=== PATIENT | female | born 1955 | race African-American/Black ===

== ENCOUNTER → 2016-09-06 | Outpatient (CLI) | payer OTHER ==
[~2016-09-06] MED LIST: ALDACTONE25 MG PO; CLONIDINE HCL0.1 MG PO; CLONIDINE0.1 PO; COREG12.5 MG PO; COREG25 MG PO; DEMADEX20 MG PO; GLUCERNA1 EACH PO; IMDUR 30 MG TAB30 M1 PO; KLOR-CON 1010 MEQ PO; LISINOPRIL10 MG PO; LISINOPRIL20 MG PO; METOPROLOL SUCC50 MG PO; POTASSIUM CHLO10 MEQ PO; PROTONIX40 M4 PO; SILVADENE20 GM TP; STERILE SALINE126 ML IV; TEARS NATURALE1 EACH OPHTHALMIC; TOPROL XL25 MG PO; TORSEMIDE5 MG PO; TYLENOL325 MG PO; ZESTRIL2.5 MG PO
--- NOTE | ~2016-09-06 | 2DMMODE ---
[facility] [address] [place] [address] 2 D/M-MODE ECHOCARDIOGRAM Name: MARY ELLENERICDAWIT DEVI Room #: REG [facility]#: [id number] Admission: 09/06/16 Attend Phys: Luis Antonio Siegel MD Discharge: Date of : 57 Date of Service: 09/07/16 0757 Report #: [id number] THIS REPORT FOR: //name// APPROVED REPORT Study performed: 09/06/2016 11:26:25 EXAM: Comprehensive 2D, Doppler, and color-flow Echocardiogram Patient Location: Out-Patient Blood Pressure: 148/80 mmHg HR: 88 bpm Other Information Study Quality: Excellent Indications Congestive Heart Failure Hypertension/HDD 2D Dimensions RVDd: 36.16 mm LVEF(%): 51.86 (>50%) IVSd: 15.87 (7-11mm) LVOT Diam: 20.73 (18-24mm) LVDd: 41.59 mm PWd: 15.71 (7-11mm) Ascending Aorta: 26.68 mm LVDs: 30.68 (25-40mm) IVC: 19.00 mm Aortic Root: 27.70 mm Garibay's LVEF: 51.86 % Volumes Left Atrial Volume (Systole) Single Plane 4CH: 67.09 mL Single Plane 2CH: 72.54 mL LA ESV Index: 66.00 mL/m2 Aortic Valve AoV Peak Alireza.: 1.92 m/s AO Peak Gr.: 14.78 mmHg LV Max P.63 mmHg LV Max: 1.19 m/s AI Vmax: 4.61 m/s AI Borden: 3.73 m/s2 AI PHT: 358.18 ms Mitral Valve E/A Ratio: 0.5 [facility] [place] [address] 2 D/M-MODE ECHOCARDIOGRAM Name: ERIC HYDE Room #: [facility]#: [id number] Admission: 09/06/16 Attend Phys: Luis Antonio Siegel MD Discharge: Date of : 57 Date of Service: 09/07/16 0757 Report #: [id number] MV Decel. Time: 402.52 ms MV E Max Alireza.: 0.73 m/s MV A Alireza.: 1.36 m/s MV PHT: 116.73 ms Pulmonary Valve PV Peak Alireza.: 1.02 m/s PV Peak Gr.: 4.18 mmHg DC End Vmax: 1.36 m/s Pulmonary Vein P Vein S: 62.6 m/s P Vein D: 27.1 m/s P Vein A Dur.: 24.9 m/s PVa Duration: 87 Tricuspid Valve TR Peak Alireza.: 2.76 m/s RAP Estimate: 5.00 mmHg TR Peak Gr.: 30.43 mmHg Left Ventricle The left ventricle is normal size. Mild to moderate concentric left ventricular hypertrophy. The overall left ventricular systolic function appears normal. LVEF is 50-55%. Grade I - abnormal relaxation pattern. Right Ventricle The right ventricle is normal size. The right ventricular systolic function is normal. Atria Left atrium is dilated. Right atrium is dilated. Aortic Valve The aortic valve is normal in structure. Aortic valve is calcified. Mild to moderate aortic regurgitation. There is no aortic valvular stenosis. Mitral Valve The mitral valve is normal in structure. Mild to moderate mitral regurgitation. No evidence of mitral valve stenosis. Tricuspid Valve The tricuspid valve is normal in structure. There is mild to moderate tricuspid regurgitation. The right atrial pressure is estimated at 5 mmHg. There is mild pulmonary hypertension. The estimated PAP was [address] [address] 2 D/M-MODE ECHOCARDIOGRAM Name: MARY ELLENERIC MARITO Room #: REG [facility]#: [id number] Admission: 09/06/16 Attend Phys: Luis Antonio Siegel MD Discharge: Date of : 57 Date of Service: 09/07/16 0757 Report #: [id number] Pulmonic Valve The pulmonary valve is normal in structure. Mild pulmonic regurgitation. Great Vessels The aortic root is normal in size. IVC is normal in size and collapses >50% with inspiration. Pericardium There is no pericardial effusion. <Conclusion> The left ventricle is normal size. Mild to moderate concentric left ventricular hypertrophy. The overall left ventricular systolic function appears normal. The right ventricle is normal size. Left atrium is dilated. Right atrium is dilated. Mild to moderate aortic regurgitation. Mild to moderate mitral regurgitation. There is mild to moderate tricuspid regurgitation. The right atrial pressure is estimated at 5 mmHg. There is mild pulmonary hypertension. The estimated PAP was 35 mmHg. <ELECTRONICALLY SIGNED> By: Luis Antonio Siegel MD 09/07/16 0757 075 075 Luis Antonio Siegel MD /INF
== END ==
LOC: CV 07-19 11:00
DX: I50.9 Heart failure, unspecified (principal); I10 Essential (primary) hypertension

== ENCOUNTER 2017-02-08 20:56 | Inpatient (IN) | payer OTHER ==
[~2017-02-08] VITALS: Ht 149.9 cm; Wt 46.7 kg
--- NOTE | ~2017-02-08 | CNG ---
[facility] [place] [address] CYTO-NONGYN REPORT PROCEDURE Name: LINDSAY HYDE Room #: 202-P ADM IN M.R.#: [id number] Admission: 02/08/17 Date of : 57 Discharge: Report #: [id number] Path Case #: [id number] CYTOPATHOLOGY REPORT COLLECTION DATE: 02/13/2017 RECEIVED DATE: 02/13/2017 SUBMITTING PHYS: Dr. Tan Carrillo OTHER PHYS: Dr. James Costello CLINICAL HISTORY: CHF Exacerbation; acute on chronic renal failure SPECIMEN(S) RECEIVED: A.Pleural fluid * * * * * * * * * * * * FINAL DIAGNOSIS: A. Pleural fluid: - No malignant cells identified. Reactive mesothelial cells and inflammation idnetiifed. PATHOLOGIST: Deven Vásquez M.D. REPORT ELECTRONICALLY SIGNED BY: Dveen Vásquez M.D. DATE/TIME: 02/14/2017 11:13 * * * * * * * * * * * * GROSS PATHOLOGY: A. Pleural fluid: The specimen is submitted unfixed, labeled "Sergio Lindsay Enriquez". Received by the Cytology Department is 30 mL of cloudy yellow fluid. One ThinPrep slide and a formalin fixed cell block were prepared. (mm 02.13.2017) UNBUNDLER(S): DINESH Guido(ASCP) INITIAL CPT CODE(S): A; 78658, 20965 Professional services performed by [facility] at [facility] [address], [place] [address] Technical services performed by [facility] at [address] [place] [address]., [address], [place] [address]. [facility] [address] [place] [address], [facility] [address] [place], [place] [address] [place] [address] [place] [address] CYTO-NONGYN REPORT PROCEDURE Name: LINDSAY HYDE Room #: 202-P ADM IN M.R.#: [id number] Admission: 02/08/17 Date of : 57 Discharge: Report #: [id number] Path Case #: [id number] PHONE: [phone] DIRECTOR: Chad Emery M.D. * * * END OF REPORT * * *
--- NOTE | ~2017-02-08 | H ---
[facility] [place] [place] [address] HISTORY AND PHYSICAL Name: ERIC HYDE Room #: 238-P ADM IN M.R.#: [id number] Admission: 02/08/17 Attend Phys: Tan Carrillo MD Discharge: Date of : 57 Report #: [id number] THIS REPORT FOR: //name// CC: Tan Field DATE OF SERVICE: 02/09/2017 ATTENDING: Dr. Fransisco Field. CHIEF COMPLAINT: Shortness of breath. HISTORY OF PRESENT ILLNESS: The patient is a 61-year-old female who presented to the Emergency Room with progressive shortness of breath. She said over the last 3 or 4 days, she has had worsening shortness of breath. She has also noted worsening lower extremity edema and her legs felt heavy, was difficult for her to walk. She also felt that her abdomen was distended. She called out to her buggy man earlier this week and was instructed to double her diuretics, which she reports doing; however, she did not have any significant improvement, came to the ER last night. She did tell me that there was a period recently where she was feeling "depressed" and she said she may not have been following her medication and diet regimen. She has had no fever, chills, productive cough, dysuria or diarrhea recently. She does not feel like she has had any recent infection. PAST MEDICAL HISTORY: Hypertensive heart disease, chronic diastolic congestive heart failure with EF around 50%, aortic regurgitation, pulmonary hypertension, coronary artery disease, chronic kidney disease stage IV. Creatinine in July of this year was 2.6 in the office, chronic back pain, remote history of meningitis in 04/2015. She had a history of peptic ulcer in 2014. She has a history of mitral valve stenosis. PAST SURGICAL HISTORY: As above. FAMILY HISTORY: Noncontributory. SOCIAL HISTORY: She lives at home. Denies current alcohol or tobacco use. ALLERGIES: None. MEDICATIONS: Coreg 12.5 mg twice a day, lisinopril 10 mg, Aldactone 25 mg twice a day, Demadex 40 mg, isosorbide 30 mg, clonidine 0.1 mg t.i.d. REVIEW OF SYSTEMS: She denies headache, visual change, chest pain, diarrhea, [facility] [address] [place] [address] HISTORY AND PHYSICAL Name: ERIC HYDE Room #: 238-[facility] IN M.R.#: [id number] Admission: 02/08/17 Attend Phys: Tan Carrillo MD Discharge: Date of : 57 Report #: [id number] dysuria, myalgias, syncope. She does complain of general weakness, heaviness in the legs. PHYSICAL EXAMINATION: VITAL SIGNS: Temperature 36.1, pulse 90, respirations 19, blood pressure 130/99, O2 sat 90% on 50% ventimask. GENERAL: She is awake and alert. She knows her surroundings. She recognized me from previous admission. HEAD and NECK: Reveal JVD. LUNGS: Diminished in the bases, clear anteriorly. HEART: Regular, no murmur. ABDOMEN: Protuberant, soft, normoactive bowel sounds, maybe a palpable fluid wave. EXTREMITIES: No cyanosis or clubbing. There is a 2-3+ pitting edema in the thighs and the sacral area. NEUROLOGIC: She moves all extremities equally. Speech is fluent. Global strength about 3/5 throughout. LABORATORY DATA: All lab and radiology data reviewed. I spoke with nursing continuously through the night. I also spoke with the ER at the time of presentation. ASSESSMENT: 1. Acute on chronic diastolic congestive heart failure. 2. Acute on chronic renal failure stage IV. 3. Hypertensive heart disease. 4. Valvular heart disease. 5. Metabolic acidosis likely due to renal disease. 6. Anasarca. 7. Abnormal liver function tests, likely passive congestion. 8. Pleural effusion. PLAN: At this point, presentation and symptoms and findings seem more consistent with heart failure related to her underlying hypertensive heart disease and kidney disease. She has had little response initially to Lasix, but additional doses have been ordered. I have asked the critical care service to follow her in ICU initially, also the Pulmonary, also the Cardiology and Nephrology teams will assess her. Resume her Coreg for now for antihypertensive control and a cardiac diet, should consider paracentesis if needed if she does not respond to diuretic therapy. Lovenox for DVT prophylaxis. <ELECTRONICALLY SIGNED> By: Tan Carrillo MD 02/11/17 1215 0832 0916 Tan Carrillo MD /nt
--- NOTE | ~2017-02-08 | D ---
[facility] [place] [address] DISCHARGE SUMMARY Name: ERIC HYDE Room #: 202-P [facility] IN M.R.#: [id number] Admission: 02/08/17 Attend Phys: Tan Carrillo MD Discharge: 02/18/17 Date of : 57 Report #: [id number] THIS REPORT FOR: //name// CC: Tan [facility] Fransisco Emir FINAL DIAGNOSES: 1. Cardiomyopathy 2. Acute on chronic systolic heart failure. 3. Malignant hypertension. 4. Chronic kidney disease stage 4. HOSPITAL COURSE: The patient was admitted with shortness of breath. She was found to be in acute heart failure, systolic dysfunction. She was treated in ICU with diuretics and supportive measures from cardiology and the renal service. Gradually, she made steady improvement. She did have a thoracentesis. By the time of discharge, she had weaned off oxygen and lot of her anasarca resolved. PHYSICAL EXAMINATION: GENERAL: On the day of discharge, she was awake and alert. VITAL SIGNS: Stable vital signs. She was off oxygen. LUNGS: Clear. HEART: Regular. ABDOMEN: Soft. Normoactive bowel sounds. EXTREMITIES: 1+ edema in the back and thigh. PLAN: She will be transferred to a custodial facility with cardiac low sodium diet, activity as tolerated, PT and OT, should be under the care of inhouse physician, follow up lab in 1-2 days, she will follow up with the renal, cardiology and primary care services in 2 weeks, I signed a transfer medication list. <ELECTRONICALLY SIGNED> By: Tan Carrillo MD 02/19/17 0944 0854 1047 Tan Carrillo MD /nt
--- NOTE | ~2017-02-08 | HC ---
[facility] [place] [address] CONSULTATION Name: ERIC HYDE Room #: 238-P ADM IN M.R.#: [id number] Admission: 02/08/17 Attend Phys: Tan Carrillo MD Discharge: Date of : 57 Report #: [id number] THIS REPORT FOR: //name// CC: Tan Moody Emir DATE OF SERVICE: 02/09/2017 REASON FOR CONSULTATION: Progressive renal failure and associated problems. HISTORY OF PRESENT ILLNESS: This is a 61-year-old female who will turn 62 tomorrow. She has been seen previously by our service when she had come in to the hospital with progressive chronic kidney disease. This has been documented in prior consultations and prior hospital visits. She has also been seen in the office by one of my associates, Fahad Carlisle MD. The patient has hypertension. She also has a substantial cardiomyopathy. She was on substantial list of medications at home, but states that she was feeling poorly. She was also having pruritic skin lesions. She states that she saw a math professor who was concerned that these were related to medications. For at least a month, if not longer, she stopped all of her medications that included most of this past month. She says she restarted some of them, but is really sketchy on the details of what she restarted. She has previously documented problems with medication compliance issues. She did say she was having more swelling and more abdominal distention. She had been put back on some of her torsemide which she was taking 40 mg daily, apparently she doubled it at the behest of the Cardiology office and states that her edema improved. As far as her other medications go, I am uncertain that she was taking any of them. HOME MEDICATIONS: Include Coreg 12.5 mg b.i.d., clonidine 0.1 mg t.i.d., isosorbide mononitrate 30 mg daily, lisinopril 10 mg daily, spironolactone 25 mg b.i.d. and torsemide 40 mg daily. ALLERGIES: No known medical allergies. PAST MEDICAL HISTORY: Progressive chronic kidney disease as noted above, longstanding hypertension. She has cardiomyopathy historically. She has had another echo ordered, but is pending. 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 She eventually recovered from that quite remarkably. She has had previous peptic ulcer disease as well as mitral valve stenosis. FAMILY HISTORY: Noncontributory. SOCIAL HISTORY: The patient lives in [facility]. She lives alone. She [facility] [address] [place] [address] CONSULTATION Name: ERIC HYDE Room #: 238-P ADM IN M.R.#: [id number] Admission: 02/08/17 Attend Phys: Tan Carrillo MD Discharge: Date of : 57 Report #: [id number] does all of her own self care. She also does her own meals, but I think those have also been a bit sketchy. REVIEW OF SYSTEMS: She has been very weak. Says she had increased lower extremity edema and then doubled up on her diuretic. Again, I am really uncertain on how much of ____ she is taking. She is unaware what her blood pressure runs at home. She has dyspnea with exertion. She has some nausea, intermittent emesis. Reports no difficulty voiding urine. Unaware of fever, chills or sweats. PHYSICAL EXAMINATION: GENERAL: This is a very small statured female. She is awake and responsive and can answer some of my questions. VITAL SIGNS: On initial presentation, her blood pressure was very high at 174/120, came down. She is now at 115/94, heart rate is 88, respiratory rate 25, oxygen saturation 100% on nasal cannula. HEENT: Shows pupils equal and reactive. Sclerae are nonicteric. Oral mucosa is moist. NECK: Veins are mildly distended. CHEST: Shows decreased breath sounds bilaterally in the bases. HEART: Has a regular rate and rhythm. ABDOMEN: Shows evidence of fluid buildup with ascites. Bowel sounds are present. Abdomen is nontender. I am unable to palpate organomegaly or masses. EXTREMITIES: Show fairly good control of her edema at this time. You can tell by looking at her legs she had been much more edematous recently. LABORATORY DATA: Sodium 140, potassium 5.6, chloride 108, bicarbonate 10, BUN 84, creatinine 2.9, glucose 160, total bilirubin 3.1, calcium 9.0, total protein 8.3, albumin 2.9. Original lactate was 5.2, was down to 3.8. White count 9.3, hemoglobin 12.1, hematocrit 39.4, platelets 238,000. Urinalysis: Specific gravity 1.025, pH of 5.5, 1+ protein, 1+ bilirubin, essentially negative microscopic exam. Initial blood gas; a pH 7.31, pCO2 of 26.8, pO2 of 73.1. Lactate 6.26. Chest x-ray shows evidence of pleural effusion and vascular congestion. CT scan of the abdomen shows lots of ascites, unobstructed kidneys. ASSESSMENT: 1. Chronic kidney disease. I suspect she is at stage 5, although her calculated eGFR is 20 mL per minute, I think it is actually substantially worse than that. She has minimal muscle mass so is creating virtually no creatinine. I think eGFR of 20 is a massive over estimation. I think she is actually uremic. Appetite is down. She has nausea. She has intermittent vomiting. She has been very weak. She has had problems with volume management. We will try [facility] [address] [place] [address] CONSULTATION Name: MARY ELLENERIC DEVI Room #: 238-P ADM IN M.R.#: [id number] Admission: 02/08/17 Attend Phys: Tan Carrillo MD Discharge: Date of : 57 Report #: [id number] to do a little more thorough evaluation here including getting a 24-hour urine for creatinine clearance to see if we can better tell what is going on from a GFR standpoint. I did talk with her a little bit about the potential of doing dialysis treatments. We will discuss more of that going forward depending upon her response. 2. Volume overload with anasarca. She has more in the way of ascites and pleural effusion at this point. I will get her back on some diuretics. Her peripheral volume status has been as bad as it has been in the past. 3. Chronic cardiomyopathy. Echocardiogram to be done. 4. Hypertension, better now on not much meds. I think this further supports that she was not taking her meds before. 5. Hypoglycemia. Again, this is probably related a little bit to her progressive renal disease. 6. Liver function abnormalities mostly related to congestive hepatopathy. RECOMMENDATIONS: 1. Cut back on her IV fluids. 2. I will put her on IV Lasix for further diuresis. 3. Repeat labs. 4. A 24-hour urine for creatinine clearance. 5. We will have further discussion with the patient going forward about the status of her kidneys and the potential of needing dialysis therapy. 6. Level of care and compliance issues are always a problem with this patient. We will keep that in mind going forward. By: 1032 17 Navdeep Polanco MD /nt
--- NOTE | ~2017-02-08 | EKG ---
[address] [place] [address] ELECTROCARDIOGRAM REPORT Name: MARY ELLENERICDAWIT DEVI Room #: 238-P ADM IN M.R.#: [id number] Admission: 02/08/17 Attend Phys: Tan Carrillo MD Discharge: Date of : 57 Report #: [id number] THIS REPORT FOR: //name// [facility] ED Test Date: 2017-02-08 Test Time: 21:01:37 Pat Name: ERIC HYDE Department: Room: 238 Gender: F Chemical Pathologist: ERNESTINE : 1955 Requested By: Meño Deleon Order Number: [id number] MD: James Bautista Measurements Intervals Twain Rate: 120 P: 33 MN: 145 QRS: -14 QRSD: 99 T: 75 QT: 335 QTc: 474 Interpretive Statements Sinus tachycardia Left atrial enlargement LVH with secondary repolarization abnormality Baseline wander in lead(s) V3 Compared to ECG 03/02/2016 06:58:00 Sinus rhythm no longer present Intraventricular conduction delay no longer present Electronically Signed On 02-11-2017 13:57:23 CDT by James Bautista [email or web address] <ELECTRONICALLY SIGNED> By: James Bautista MD 02/11/17 1357 00 00 James Bautista MD /EPI
--- NOTE | ~2017-02-08 | HC ---
[facility] [place] [address] CONSULTATION Name: ERIC HYDE Room #: 238- ADM IN M.R.#: [id number] Admission: 02/08/17 Attend Phys: Tan Carrillo MD Discharge: Date of : 57 Report #: [id number] THIS REPORT FOR: //name// CC: Tan Field TYPE OF REPORT: Pulmonary consultation. PRIMARY CARE PHYSICIAN: Fransisco Costello M.D. REFERRAL PHYSICIAN: Tan Carrillo M.D. REASON FOR REFERRAL: Dyspnea. HISTORY OF PRESENT ILLNESS: The patient is a 61-year-old -[place] female who presents at Emergency Room with dyspnea and generalized weakness. The patient was found to be hypoxic along with renal failure and metabolic acidosis. A pulmonary consultation was requested. The patient has known cardiomyopathy. She is followed longitudinally by Dr. Luis Antonio Siegel. She states that she was in her usual state of health until few days ago she started noticing increasing dyspnea. She was told to increase the diuretic dose. With worsening symptoms, she presents to the Emergency Department. Otherwise, she denies any recent febrile illness, chest pain or productive cough. She denies any nausea, vomiting or diarrhea. Portable chest x-ray on admission revealed cardiomegaly, small bilateral effusion, mild right lower lobe infiltrates. PAST MEDICAL HISTORY: Notable for cardiomyopathy, echocardiogram performed in August of 2016 showed normal LV size, mild to moderate concentric left ventricular hypertrophy, ejection fraction is felt to be normal, dilated both right and left atrium, mild to moderate aortic regurgitation, oidy-co-nqqqvkse mitral regurgitation and pulmonary artery pressure was 35 mmHg. She has chronic diastolic heart failure; hypertensive cardiovascular disease; chronic kidney disease, stage 4, creatinine around 2.6; valvular heart disease as mentioned above; history of peptic ulcer disease and remote history of meningitis. History of positive antinuclear antibody in 2014. PAST SURGICAL HISTORY: Unremarkable. ALLERGIES: None to medications. [facility] [address] [place] [address] CONSULTATION Name: ERIC HYDE Room #: 238-P [facility] IN [facility].#: [id number] Admission: 02/08/17 Attend Phys: Tan Carrillo MD Discharge: Date of : 57 Report #: [id number] HOME MEDICATIONS: Lists are reviewed. This includes Coreg, Zestril, Aldactone, Demadex, Imdur and clonidine. FAMILY HISTORY: Noncontributory. SOCIAL HISTORY: She denies any tobacco or alcohol use. REVIEW OF SYSTEMS: As mentioned above, otherwise 10-point system review negative. PHYSICAL EXAMINATION: GENERAL: She is awake, alert, in mild distress. VITAL SIGNS: Temperature is 97 degrees Fahrenheit, pulse is 90, respiratory rate is 19, blood pressure 118/87 mmHg and saturation is 100%. HEENT: Normocephalic and atraumatic. NECK: Supple, without lymphadenopathy or thyromegaly. CHEST: Breath sounds are fair, decreased in the right base. A few scattered crackles. No wheezes. CARDIOVASCULAR: Normal S1 and S2. Positive gallop. No murmurs. Pulses are 2+/4+ bilaterally. BREASTS: Exam is deferred. ABDOMEN: Soft, mildly distended. No masses felt. GENITOURINARY: Deferred. RECTAL: Deferred. EXTREMITIES: There is no edema, cyanosis or clubbing. RADIOLOGICAL DATA: Chest x-ray as mentioned above. CT abdomen and pelvis revealed dinj-bb-hhxkdumj four-quadrant ascites. LABORATORY DATA: Sodium 140, potassium 5.6, chloride 108, CO2 is 10, bicarbonate is 10, BUN is 84 and creatinine is 2.9. Liver function tests, abnormal with increased SGOT and alkaline phosphatase. WBC is 9300, hemoglobin is 12.1 and platelets are normal. Albumin 2.9. Arterial blood gas revealed pH 7.29, pCO2 of 29 and pO2 is 249 on FiO2 100%. IMPRESSION: 1. Acute hypoxic respiratory failure in this 61-year-old -[place] female with cardiomyopathy, chronic kidney disease. She has mildly severe metabolic acidosis. She is felt to be in acute on chronic diastolic heart failure. Chest x-ray shows questionable right-sided infiltrates, the patient may have possible pneumonia. 2. Cardiomyopathy. Previous echocardiogram had shown severely depressed ejection fraction approximately 15% by transesophageal echocardiography. Recent echocardiogram done by a transthoracic showed ejection fraction being near normal. She does have hypertrophic cardiomyopathy. She has acute on [place] [address] CONSULTATION Name: ERIC HYDE Room #: 238-P [facility] IN M.R.#: [id number] Admission: 02/08/17 Attend Phys: Tan Carrillo MD Discharge: Date of : 57 Report #: [id number] 3. Small right-sided pleural effusion, ascites due to heart failure. The right lower lobe infiltrates, likely represents atelectasis. Pneumonia is felt to be less likely. 4. Acute kidney injury/chronic kidney disease, metabolic acidosis appears to be severe this morning with a bicarbonate of 10. Appears to be an anion gap also. 5. Elevated troponin, deferred to Cardiology. 6. Moderate protein-calorie malnutrition. 7. Elevated liver function enzymes. May be related to hepatic congestion due to heart failure. RECOMMENDATIONS: We will continue to keep saturation 90%. Renal has been consulted along with cardiology regarding management of heart failure and acid-base imbalance. DVT and GI prophylaxis will be addressed. Thank you for this consultation. <ELECTRONICALLY SIGNED> By: Raphael Bonilla MD 02/11/17 1209 [id number] Raphael Bonilla MD /nt
--- NOTE | ~2017-02-08 | HC ---
[facility] [place] [address] CONSULTATION Name: ERIC HYDE Room #: 202-P [facility] IN ..#: [id number] Admission: 02/08/17 Attend Phys: Tan Carrillo MD Discharge: 02/18/17 Date of : 57 Report #: [id number] THIS REPORT FOR: //name// CC: Tan Ramirez [facility] Fransisco Emir DATE OF SERVICE: 02/13/2017 HISTORY OF PRESENT ILLNESS: The patient is a 62-year-old -Y[place]i female admitted with shortness of breath, increased lower extremity edema who was noted to have acute hypoxic respiratory failure, acute on chronic heart failure with an ejection fraction of 20-25%, nonischemic cardiomyopathy, pleural effusion, greater on the right, significant acute renal insufficiency superimposed on chronic kidney disease, ascites. Nephrology indicated that with her advanced heart failure she is a very poor candidate for hemodialysis. We are seeing her in rehabilitation medicine consultation. PAST MEDICAL HISTORY: CHF, chronic kidney disease stage V, past meningitis in 2015, history of peptic ulcer disease. She has had mitral valve stenosis, peptic ulcer 2015. MEDICATIONS: Please see the full medication listing. FAMILY HISTORY: Noncontributory. ALLERGIES: None. SOCIAL HISTORY: Lives in an apartment alone, premorbid cane versus walker ambulator. There is a cousin that can assist. REVIEW OF SYSTEMS: No current complaints of chest pain, shortness of breath or abdominal discomfort. PHYSICAL EXAMINATION: GENERAL: Small statured 62-year-old -Y[place]i female who appears older than stated age. VITAL SIGNS: Last recorded temperature is 98, pulse 87, respirations 17, blood pressure 128/86. She follows basic 1 step commands. HEENT: Facies appeared symmetric. Nasal prong O2 is in place. EXTREMITIES: Functional range of motion of the upper extremities and lower extremities. Strength is probably a 3+/5. She does have some evidence of ascites on examination of her abdomen. She is contact guard for sit to stand and she ambulated 20 feet contact guard with a front-wheeled walker. ASSESSMENT: A 62-year-old -Yemeni female with the following problem [address] [address] CONSULTATION Name: MARY ELLENERIC MARITO Room #: 202-P [facility] IN M.R.#: [id number] Admission: 02/08/17 Attend Phys: Tan Carrillo MD Discharge: 02/18/17 Date of : 57 Report #: [id number] list: 1. Medical complex with generalized debilitation. 2. Acute on chronic combined congestive heart failure. 3. Acute on chronic respiratory failure. 4. Elevated troponin without evidence of non-ST elevation myocardial infarction. 5. Renal insufficiency, stage V. 6. Ascites. 7. Elevated liver enzymes. PLAN: Insurance is being checked regarding rehab therapy options. We will be glad to follow along with you. <ELECTRONICALLY SIGNED> By: Tan Ellison MD 02/20/17 1006 1116 0235 Tan Ellison MD /PATRICIA
--- NOTE | ~2017-02-08 | EKG ---
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 : [id number] Requested By: Arabella Herbert Order Number: [id number] MD: James Bautista Measurements Intervals [place] Rate: 90 P: 41 [place]: 164 QRS: 5 QRSD: 95 T: 118 QT: 457 QTc: 560 Interpretive Statements Sinus rhythm Left atrial enlargement Abnormal R-wave progression, late transition Left ventricular hypertrophy Nonspecific T abnrm, anterolateral leads Electronically Signed On 02-11-2017 13:59:03 CDT by James Bautista [email or web address] <ELECTRONICALLY SIGNED> By: James Bautista MD 02/11/17 1359 1030 1030 James Bautista MD /DARIO
--- NOTE | ~2017-02-08 | 2DMMODE ---
[facility] [address] [place] [address] 2 D/M-MODE ECHOCARDIOGRAM Name: MARY ELLENERIC MARITO Room #: 238-P ADM IN M.R.#: [id number] Admission: 02/08/17 Attend Phys: Stephan Baldwin Discharge: Date of : 57 Date of Service: 02/11/17 0927 Report #: [id number] THIS REPORT FOR: //name// APPROVED REPORT Study performed: 02/11/2017 08:23:20 EXAM: Comprehensive 2D, Doppler, and color-flow Echocardiogram Patient Location: ICU Room #: 238 Status: routine BSA: 1.24 HR: 76 bpm BP: 114/80 mmHg Other Information Study Quality: Excellent Indications Congestive Heart Failure Dyspnea Hypertension/HDD 2D Dimensions RVDd: 40.97 mm LVEF(%): 20.38 (>50%) IVSd: 13.03 (7-11mm) LVOT Diam: 17.69 (18-24mm) LVDd: 49.02 mm PWd: 14.28 (7-11mm) Ascending Ao: 32.89 (22-36mm) LVDs: 44.47 (25-40mm) Aortic Root: 28.99 mm IVC: 22.00 mm Garibay's LVEF: 20.38 % Volumes Left Atrial Volume (Systole) Single Plane 4CH: 135.76 mL Single Plane 2CH: 102.59 mL LA ESV Index: 108.00 mL/m2 Aortic Valve AoV Peak Alireza.: 1.38 m/s AO Peak Gr.: 7.66 mmHg LVOT Max P.68 mmHg LVOT Max V: 0.96 m/s KALLIE Vmax: 1.70 cm2 AI Vmax: 4.16 m/s AI Piute: 2.52 m/s2 AI PHT: 479.79 ms [facility] [place] [address] 2 D/M-MODE ECHOCARDIOGRAM Name: ERIC HYDE Room #: 238-P [facility] IN M.R.#: [id number] Admission: 02/08/17 Attend Phys: Stephan Baldwin Discharge: Date of : 57 Date of Service: 02/11/17 0927 Report #: [id number] Mitral Valve E/A Ratio: 0.7 MV Decel. Time: 224.67 ms MV E Max Alireza.: 0.61 m/s MV A Alireza.: 0.82 m/s MV PHT: 65.15 ms IVRT: 203.00 ms Pulmonary Valve PV Peak Alireza.: 0.85 m/s PV Peak Gr.: 2.86 mmHg MD End Vmax: 1.27 m/s Pulmonary Vein P Vein S: 0.37 m/s P Vein A: 0.20 m/s P Vein D: 0.19 m/s P Vein A Dur.: 120.0 msec P Vein S/D Ratio: 1.95 Tricuspid Valve TR Peak Alireza.: 3.35 m/s TR Peak Gr.: 44.86 mmHg PA Pressure: 60.00 mmHg Left Ventricle The left ventricle is normal size. There is global hypokinesis of the left ventricle. Mild concentric left ventricular hypertrophy. Left ventricular ejection fraction is severely decreased. LVEF is 20-25%. Grade I - abnormal relaxation pattern. Right Ventricle Right ventricle is at the upper limits of normal. Right ventricle is hypokinetic. Atria Left atrium is dilated. Right atrium is dilated. Aortic Valve The aortic valve is normal in structure. Aortic valve is calcified. Mild to moderate aortic regurgitation. There is no aortic valvular stenosis. Mitral Valve The mitral valve is normal in structure. Moderate mitral regurgitation. No evidence of mitral valve stenosis. Tricuspid Valve [facility] [address] [place] [address] 2 D/M-MODE ECHOCARDIOGRAM Name: ERIC HYDE Room #: 238-P ADM IN .R.#: [id number] Admission: 02/08/17 Attend Phys: Stephan Baldwin Discharge: Date of : 57 Date of Service: 02/11/17 0927 Report #: [id number] The tricuspid valve is normal in structure. There is moderate tricuspid regurgitation. The right atrial pressure is estimated at mmHg. There is moderate pulmonary hypertension. Estimated PAP was 60 mmHg. Pulmonic Valve The pulmonary valve is normal in structure. Mild pulmonic regurgitation. Great Vessels The aortic root is normal in size. The inferior vena cava is dilated with no inspiratory collapse. Pericardium Trace pericardial effusion. Moderate left pleural effusion. <Conclusion> The left ventricle is normal size. There is global hypokinesis of the left ventricle. LVEF is 20-25%. Right ventricle is at the upper limits of normal. Right ventricle is hypokinetic. Left atrium is dilated. Right atrium is dilated. The aortic valve is normal in structure. Aortic valve is calcified. Mild to moderate aortic regurgitation. The mitral valve is normal in structure. Moderate mitral regurgitation. The tricuspid valve is normal in structure. There is moderate tricuspid regurgitation. The right atrial pressure is estimated at mmHg. There is moderate pulmonary hypertension. Estimated PAP was 60 mmHg. The pulmonary valve is normal in structure. Mild pulmonic regurgitation. Trace pericardial effusion. Moderate left pleural effusion. <ELECTRONICALLY SIGNED> By: Angus Walsh MD 02/11/17926 6 6 Angus Walsh MD /INF
[2017-02-08 20:58] VITALS: BP 174/120
[2017-02-08 22:10] LABS: HEMATOCRIT 44.2 % (37.0-47.0); HEMOGLOBIN 14.3 gm/dL (12.0-15.0); MCH 33.1 pg (26.0-34.0); MCHC 32.4 g/dL (28.0-37.0); PLATELET COUNT 259 thou/uL (150-400); RBC 4.33 mil/uL (4.20-5.00); RDW 21.2 % (10.5-14.5)
[2017-02-08 22:14] LABS: MANUAL DIFF YES
[2017-02-08 22:19] LABS: CALCIUM 9.4 mg/dL (8.5-10.1); POTASSIUM 5.2 mmol/L (3.5-5.1)
[2017-02-08 22:28] LABS: ALBUMIN 2.9 g/dL (3.4-5.0); TOTAL BILIRUBIN 3.1 mg/dL (<0.1-1.0); TOTAL PROTEIN 8.3 g/dL (6.4-8.2); TROPONIN-I 0.34 ng/mL (<0.04-0.07)
[2017-02-08 23:00] LABS: ABSOLUTE NEUTROPHILS 7.4 thou/uL (1.4-8.2); MACROCYTES 1+; NUCLEATED RBCS 1 /100WBC; POLYCHROMASIA SLIGHT; TOTAL CELL COUNT 100
[2017-02-08 23:29] LABS: URINE BILIRUBIN 1+ (Negative); URINE BLOOD TRACE (Negative); URINE COLOR YELLOW; URINE GLUCOSE-RANDOM* NEGATIVE (Negative); URINE KETONES NEGATIVE (Negative); URINE NITRITE NEGATIVE (Negative); URINE PROTEIN (DIPSTICK) 1+ (Negative); URINE SPECIFIC GRAVITY 1.025 (1.003-1.035); URINE UROBILINOGEN 0.2 E.U./dl (0.2-1.0)
[2017-02-08 23:57] LABS: ICTOTEST (BILI CONFIRMATORY) Positive (Negative)
[2017-02-09] VITALS (38 sets, daily range): BP systolic 96–152; BP diastolic 85–111
[2017-02-09 00:53] LABS: ABG SAMPLE TYPE ARTERIAL; BE(vivo) -11.1 mmol/L (-2 to +3); HCO3 13.4 mmol/L (22.0-26.0); O2(CT) 17.2 mL/dL (15.0-23.0); O2Hb 90.4 % (92.0-98.0); PCO2 26.8 mmHg (35.0-45.0); PO2 73.1 mmHg (80.0-100.0); sO2 93.8 % (92.0-98.0); tCO2 14.2 mmol/L (24.0-30.0)
[2017-02-09 00:54] LABS: LACTATE 6.26 mmol/L (0.5-2.0); pH 7.317 (7.360-7.450)
[2017-02-09 00:55] LABS: STICK SITE L.BRACHIAL
[2017-02-09 01:10] LABS: SQUAMOUS None Seen /LPF (0-3); URINE WBC None Seen /HPF (0-5)
[2017-02-09 01:11] LABS: AMORPHOUS URATES Few /LPF (None Seen); BACTERIA None Seen /HPF (None Seen); CRYSTALS None Seen /LPF (None Seen); HYALINE CASTS 0-3 Few /LPF (None Seen); URINE RBC None Seen /HPF (0-2)
[2017-02-09 04:01] LABS: ABG SAMPLE TYPE ARTERIAL; BE(vivo) -10.8 mmol/L (-2 to +3); HCO3 14.3 mmol/L (22.0-26.0); O2(CT) 19.2 mL/dL (15.0-23.0); O2Hb 98.3 % (92.0-98.0); PCO2 29.8 mmHg (35.0-45.0); PO2 249.5 mmHg (80.0-100.0); sO2 99.5 % (92.0-98.0); tCO2 15.2 mmol/L (24.0-30.0)
[2017-02-09 04:02] LABS: LACTATE 5.65 mmol/L (0.5-2.0); STICK SITE L.BRACHIAL; pH 7.298 (7.360-7.450)
[2017-02-09 05:36] LABS: CREATININE 2.9 mg/dL (0.6-1.0); MAGNESIUM 2.6 mg/dL (1.8-2.4); POTASSIUM 5.6 mmol/L (3.5-5.1)
[2017-02-09 08:41] LABS: HEMATOCRIT 39.4 % (37.0-47.0); MCH 31.7 pg (26.0-34.0); MCHC 30.7 g/dL (28.0-37.0); MCV 103.4 fL (80.0-100.0); PLATELET COUNT 238 thou/uL (150-400); RBC 3.81 mil/uL (4.20-5.00); RDW 21.8 % (10.5-14.5); WBC 9.3 thou/uL (4.0-11.0)
[2017-02-09 08:42] LABS: HEMOGLOBIN 12.1 gm/dL (12.0-15.0); MANUAL DIFF YES
[2017-02-09 10:05] LABS: ABSOLUTE NEUTROPHILS 8.1 thou/uL (1.4-8.2); ANISOCYTOSIS 2+; TOTAL CELL COUNT 100
[2017-02-09 10:06] LABS: MACROCYTES 1+; POLYCHROMASIA OCCASIONAL
[2017-02-10] VITALS (8 sets, daily range): BP systolic 94–119; BP diastolic 74–91
[2017-02-10 05:01] LABS: CALCIUM 7.6 mg/dL (8.5-10.1); CREATININE 3.2 mg/dL (0.6-1.0); TOTAL BILIRUBIN 1.2 mg/dL (<0.1-1.0); TOTAL PROTEIN 6.1 g/dL (6.4-8.2)
[2017-02-10 05:02] LABS: POTASSIUM 4.2 mmol/L (3.5-5.1)
[2017-02-10 06:30] LABS: HEMATOCRIT 39.8 % (37.0-47.0); HEMOGLOBIN 11.9 gm/dL (12.0-15.0); MCV 106.9 fL (80.0-100.0); PLATELET COUNT 189 thou/uL (150-400); RBC 3.73 mil/uL (4.20-5.00); WBC 7.8 thou/uL (4.0-11.0)
[2017-02-10 06:31] LABS: MANUAL DIFF YES
[2017-02-10 10:35] LABS: ABSOLUTE NEUTROPHILS 6.6 thou/uL (1.4-8.2); ANISOCYTOSIS 2+; MACROCYTES 2+; TOTAL CELL COUNT 100
[2017-02-10 21:07] LABS: URINE CREATININE 40.8 mg/dL (Not Estab.)
[2017-02-11 05:54] LABS: ALBUMIN 1.9 g/dL (3.4-5.0); CALCIUM 7.8 mg/dL (8.5-10.1); PHOSPHORUS 5.4 mg/dL (2.5-4.9); POTASSIUM 3.8 mmol/L (3.5-5.1)
[2017-02-11 16:21] VITALS: BP 127/87
[2017-02-11 19:34] VITALS: BP 131/85
[2017-02-12 04:00] VITALS: BP 128/91
[2017-02-12 04:09] LABS: ALBUMIN 1.9 g/dL (3.4-5.0); CALCIUM 7.9 mg/dL (8.5-10.1); CREATININE 2.7 mg/dL (0.6-1.0); PHOSPHORUS 4.6 mg/dL (2.5-4.9); POTASSIUM 3.8 mmol/L (3.5-5.1)
[2017-02-12 07:37] VITALS: BP 137/94
[2017-02-12 11:27] VITALS: BP 122/75
[2017-02-12 15:01] VITALS: BP 103/68
[2017-02-12 17:05] LABS: HEMATOCRIT 37.8 % (37.0-47.0); HEMOGLOBIN 11.4 gm/dL (12.0-15.0); MCH 30.5 pg (26.0-34.0); MCHC 30.1 g/dL (28.0-37.0); RBC 3.73 mil/uL (4.20-5.00); RDW 20.7 % (10.5-14.5); WBC 11.3 thou/uL (4.0-11.0)
[2017-02-12 17:15] LABS: MCV 101.4 fL (80.0-100.0)
[2017-02-12 17:21] LABS: INR 1.2; PROTIME 12.2 Seconds (9.3-11.4)
[2017-02-12 20:30] VITALS: BP 111/77
[2017-02-13 04:00] VITALS: BP 103/66
[2017-02-13 06:17] LABS: ALBUMIN 1.7 g/dL (3.4-5.0); CALCIUM 8.1 mg/dL (8.5-10.1); CREATININE 2.7 mg/dL (0.6-1.0); PHOSPHORUS 3.5 mg/dL (2.5-4.9)
[2017-02-13 12:25] VITALS: BP 112/70
[2017-02-13 14:12] LABS: CLARITY CLOUDY; COLOR YELLOW; MANUAL DIFF YES; TOTAL VOLUME 60 mL
[2017-02-13 14:33] LABS: BF NUCLEATED CELLS 809; BF RBC 562
[2017-02-13 15:11] LABS: BF MACROPHAGE 13; BF NEUTROPHILS 67
[2017-02-13 15:56] VITALS: BP 111/74
[2017-02-13 19:24] VITALS: BP 117/78
[2017-02-13 23:18] VITALS: BP 126/83
[2017-02-14 03:23] VITALS: BP 135/91
[2017-02-14 04:04] LABS: ALBUMIN 1.6 g/dL (3.4-5.0); CREATININE 2.4 mg/dL (0.6-1.0); PHOSPHORUS 2.4 mg/dL (2.5-4.9); POTASSIUM 3.2 mmol/L (3.5-5.1)
[2017-02-14 08:17] VITALS: BP 124/84
[2017-02-14 11:53] VITALS: BP 114/71
[2017-02-14 13:14] LABS: BODY FLUID AMYLASE 32 U/L (()); BODY FLUID GLUCOSE 150 mg/dL (()); BODY FLUID LDH 225 IU/L (()); BODY FLUID PROTEIN 2.6 g/dL (())
[2017-02-14 15:47] VITALS: BP 119/78
[2017-02-14 19:15] VITALS: BP 142/98
[2017-02-15 03:12] VITALS: BP 137/96
[2017-02-15 04:26] LABS: ALBUMIN 1.8 g/dL (3.4-5.0); CREATININE 2.1 mg/dL (0.6-1.0); PHOSPHORUS 2.5 mg/dL (2.5-4.9); POTASSIUM 3.8 mmol/L (3.5-5.1)
[2017-02-15 07:50] VITALS: BP 146/100
[2017-02-15] MEDS ORDERED: IMDUR 30 MG TAB30 M1 PO (10:10)
[2017-02-15] MEDS ORDERED: TORSEMIDE5 MG PO (10:11)
[2017-02-15] MEDS ORDERED: CARVEDILOL25 MG PO (10:11)
[2017-02-15 13:09] LABS: BODY FLUID ALBUMIN 1.1 g/dL (())
[2017-02-15 17:59] VITALS: BP 137/92
[2017-02-15 19:19] VITALS: BP 146/90
[2017-02-16 03:12] VITALS: BP 144/91
[2017-02-16 04:37] LABS: ALBUMIN 1.8 g/dL (3.4-5.0); CALCIUM 8.1 mg/dL (8.5-10.1); CREATININE 2.1 mg/dL (0.6-1.0); PHOSPHORUS 2.8 mg/dL (2.5-4.9)
[2017-02-16 07:40] VITALS: BP 143/98
[2017-02-16 12:35] VITALS: BP 124/81
[2017-02-16 17:05] VITALS: BP 141/92
[2017-02-16 19:14] VITALS: BP 179/109
[2017-02-16 23:24] VITALS: BP 125/77
[2017-02-17 03:35] VITALS: BP 131/89
[2017-02-17 05:11] LABS: ALBUMIN 1.8 g/dL (3.4-5.0); CREATININE 1.9 mg/dL (0.6-1.0); PHOSPHORUS 3.2 mg/dL (2.5-4.9); POTASSIUM 3.8 mmol/L (3.5-5.1)
[2017-02-17 08:00] VITALS: BP 123/85
[2017-02-17 15:23] VITALS: BP 123/77
[2017-02-17 19:16] VITALS: BP 147/100
[2017-02-18 03:28] VITALS: BP 134/84
[2017-02-18 04:50] LABS: ALBUMIN 1.8 g/dL (3.4-5.0); CALCIUM 8.2 mg/dL (8.5-10.1); CREATININE 1.9 mg/dL (0.6-1.0); PHOSPHORUS 3.1 mg/dL (2.5-4.9); POTASSIUM 3.3 mmol/L (3.5-5.1)
[2017-02-18 07:10] VITALS: BP 144/93
[2017-02-18 12:00] VITALS: BP 120/75
== END 2017-02-18 15:25 | DRG 291 ==
LOC: ER 20:56 → EROBS 23:24 → ICU 23:24 → 2N 02-11 16:02
PROVIDERS: Hospitalist; Internal Medicine Geriatric Medicine; Internal Medicine Nephrology; Internal Medicine Pulmonary Disease; Nurse Practitioner Family
DX: I13.2 Hypertensive heart and chronic kidney disease with heart failure and with stage 5 chronic kidney disease, or end stage renal disease (principal); I50.43 Acute on chronic combined systolic (congestive) and diastolic (congestive) heart failure; J96.21 Acute and chronic respiratory failure with hypoxia; N18.5 Chronic kidney disease, stage 5; N17.9 Acute kidney failure, unspecified; E87.2 Acidosis; E44.0 Moderate protein-calorie malnutrition; R18.8 Other ascites; J90 Pleural effusion, not elsewhere classified; J98.11 Atelectasis; I27.2 Other secondary pulmonary hypertension; F32.9 Major depressive disorder, single episode, unspecified; I42.2 Other hypertrophic cardiomyopathy; E16.2 Hypoglycemia, unspecified; E87.5 Hyperkalemia; E83.41 Hypermagnesemia; Z86.61 Personal history of infections of the central nervous system; I25.2 Old myocardial infarction; Z87.11 Personal history of peptic ulcer disease; Z87.440 Personal history of urinary (tract) infections; Z68.20 Body mass index [BMI] 20.0-20.9, adult; Z79.899 Other long term (current) drug therapy
CPT/HCPCS: 10081; 10203

== ENCOUNTER 2017-02-27 02:05 | Inpatient (IN) | payer OTHER ==
[~2017-02-27] VITALS: Ht 149.9 cm; Wt 47.9 kg
[2017-02-27] VITALS (11 sets, daily range): BP systolic 133–182; BP diastolic 86–123
--- NOTE | ~2017-02-27 | H ---
[facility] [place] [address] HISTORY AND PHYSICAL Name: ERIC HYDE Room #: 203-P ADM IN M.R.#: [id number] Admission: 02/27/17 Attend Phys: Tan Carrillo MD Discharge: Date of : 57 Report #: [id number] THIS REPORT FOR: //name// CC: Tan Moody Emir DATE OF SERVICE: 02/27/2017 CHIEF COMPLAINT: Shortness of breath. HISTORY OF PRESENT ILLNESS: The patient is a 62-year-old female transferred back from her retirement facility for evaluation of shortness of breath. She had a recent hospitalization for similar symptoms and was diagnosed with cardiomyopathy, ejection fraction around 20% due to hypertensive heart disease along with chronic kidney disease stage 4. She was diuresed and had a left thoracentesis. She was much improved upon discharge from here. She says at the facility she is not clear whether medication changes taken place, but feels that some of the meals may have had excess salt. She says they have been weighing her, but she is not sure what those readings or results show. I do not have any records from the facility available. PAST MEDICAL HISTORY: Chronic kidney disease stage 4, cardiomyopathy, ejection fraction of 20%, unspecified liver disease. PAST SURGICAL HISTORY: Unknown. FAMILY HISTORY: Noncontributory. SOCIAL HISTORY: She was living with her family. She just went to the retirement facility about 10 days ago. No chronic alcohol or tobacco use. ALLERGIES: None. MEDICATIONS: Imdur 90 mg, Coreg 25 mg b.i.d., Demadex 10 mg b.i.d. and clonidine 0.1 mg t.i.d. REVIEW OF SYSTEMS: She complains of abdominal bloating, some shortness of breath. Otherwise, no headache, chest pain, abdominal pain, nausea, vomiting, dysuria, syncope or fall. OBJECTIVE: VITAL SIGNS: Temperature 36.9, pulse 92, respirations 20, blood pressure 133/87 and O2 sat 100% on 2 liters nasal cannula. GENERAL: She is awake and alert. She remembers me. No distress. HEAD AND NECK: Unremarkable. There is JVD. LUNGS: Diminished in the right base. [facility] [address] [place] [address] HISTORY AND PHYSICAL Name: ERIC HYDE Room #: [facility] IN ..#: [id number] Admission: 02/27/17 Attend Phys: Tan Carrillo MD Discharge: Date of : 57 Report #: [id number] HEART: Regular. No murmur. ABDOMEN: Protuberant, soft. Normoactive bowel sounds. Possible palpable fluid wave. EXTREMITIES: Showed 2+ edema. NEUROLOGIC: Motor strength 3/5 throughout. Lab and x-ray data reviewed. ASSESSMENT: 1. Decompensated acute on chronic systolic heart failure. 2. Cardiomyopathy, ejection fraction 20%. 3. Chronic kidney disease stage 4. 4. Right pleural effusion. PLAN: I will ask for thoracentesis and paracentesis for additional fluid removal. Diuretics have been ordered once she has had her tap. Lovenox for DVT prophylaxis. This will be difficult to manage even as an outpatient due to limited ability. The facility is to manage her sodium and fluid intake. We will do the best we can to try to find a stable oral regimen for her and strict instructions upon discharge. I agree this is a terminal heart situation, and at this time, we will try to stabilize her condition and get her return to her skilled care. <ELECTRONICALLY SIGNED> By: Tan Carrillo MD 02/28/17 1005 1249 1416 Tan Carrillo MD /nt
--- NOTE | ~2017-02-27 | EKG ---
[address] [place] [address] ELECTROCARDIOGRAM REPORT Name: ERIC HYDE Room #: 203-P ADM IN M.R.#: [id number] Admission: 02/27/17 Attend Phys: Tan Carrillo MD Discharge: Date of : 57 Report #: [id number] THIS REPORT FOR: //name// [facility] Test Date: 2017-02-27 Test Time: 02:35:25 Pat Name: ERIC HYDE Department: Room: 203 Gender: F Evidence Technician: : [id number] Requested By: J Luis Carey Order Number: [id number] MD: Peter Solis Measurements Intervals [place] Rate: 117 P: 25 [place]: 155 QRS: 50 QRSD: 95 T: 148 QT: 315 QTc: 440 Interpretive Statements Sinus tachycardia Probable left atrial enlargement LVH with secondary repolarization abnormality Compared to ECG 02/09/2017 10:30:59 No significant change was found Electronically Signed On 02-27-2017 8:06:20 CDT by Peter Solis [email or web address] <ELECTRONICALLY SIGNED> By: Peter Solis MD, [facility] 02/27/17 0806 0235 4 Peter Solis MD, [facility] /EPI
--- NOTE | ~2017-02-27 | CNG ---
[facility] [address] CYTO-NONGYN REPORT PROCEDURE Name: MARY ELLENLINDSAY VALENTEE Room #: 203-P DIS IN M.R.#: [id number] Admission: 02/27/17 Date of : 57 Discharge: 03/01/17 Report #: [id number] Path Case #: [id number] CYTOPATHOLOGY REPORT COLLECTION DATE: 03/01/2017 RECEIVED DATE: 03/04/2017 SUBMITTING PHYS: Dr. Tan Carrillo OTHER PHYS: Dr. Fransisco Costello CLINICAL HISTORY: Heart failure, Right pleural effusion SPECIMEN(S) RECEIVED: A.Pleural fluid * * * * * * * * * * * * FINAL DIAGNOSIS: A. Pleural fluid: - No malignant cells identified. Scattered mesothelial cells and acute and chronic inflammatory cells present. PATHOLOGIST: Nancy Sheehan M.D. REPORT ELECTRONICALLY SIGNED BY: Nancy Sheehan M.D. DATE/TIME: 03/05/2017 13:53 * * * * * * * * * * * * GROSS PATHOLOGY: A. Right pleural fluid: The specimen is submitted unfixed, labeled "Lindsay Hyde". Received by the Cytology Department is 10 mL of cloudy yellow fluid. One ThinPrep slide and a formalin fixed cell block were prepared. (lg10.) STEREOTYPE MOLDER(S): [facility] INITIAL CPT CODE(S): A; 28253, 65554 Professional services performed by [facility] at [facility] [address], [place] [address] Technical services performed by [facility] at [address] [place] [address]., [address], [place] [address]. [facility] [address] [place] [address], [facility] [address] [place] [address] PHONE: [phone] [facility] [address] [place] [address] CYTO-NONGYN REPORT PROCEDURE Name: LINDSAY HYDE Room #: 203-P DIS IN M.R.#: [id number] Admission: 02/27/17 Date of : 57 Discharge: 03/01/17 Report #: [id number] Path Case #: [id number] DIRECTOR: Chad Emery M.D. * * * END OF REPORT * * *
--- NOTE | ~2017-02-27 | HC ---
[facility] [place] [address] CONSULTATION Name: ERIC HYDE Room #: 203-P ADM IN M.R.#: [id number] Admission: 02/27/17 Attend Phys: Tan Carrillo MD Discharge: Date of : 57 Report #: [id number] THIS REPORT FOR: //name// CC: Tan Moody Emir DATE OF SERVICE: 02/27/2017 REASON FOR CONSULTATION: Acute on chronic congestive heart failure. HISTORY OF PRESENT ILLNESS: The patient is a 62-year-old with history of nonischemic cardiomyopathy, ejection fraction of 20-25%; hypertension, chronic renal insufficiency and pleural effusion who was recently in the hospital for recurrent congestive heart failure. Her ejection fraction at the time was noted to be 20-25%. Her kidney function was initially very poor, but improved throughout the hospitalization. She started on standard cardiac medications including carvedilol, hydralazine, Imdur, and diuretics. She was transferred to a skilled facility. Apparently, she was there and was starting to have increased shortness of breath as well as increased swelling and she was transferred back to the hospital. REVIEW OF SYSTEMS: GENERAL: Denies fevers or chills. HEENT: No blurred vision. CARDIOVASCULAR: As above, with no complaints of chest pain. PULMONARY: She is short of breath. No wheezing. Not coughing up anything. GASTROINTESTINAL: She denies any nausea, vomiting, but has a poor appetite. GENITOURINARY: She has no dysuria. MUSCULOSKELETAL: No myalgias or arthralgias. ENDOCRINE: No heat or cold intolerance. NEUROLOGIC: No complaints of headaches or focal weakness. PAST MEDICAL HISTORY: 1. Congestive heart failure, ejection fraction of 20-25%, believed to be nonischemic in nature. 2. Hypertension. 3. Acute on chronic renal insufficiency. 4. Nausea, vomiting. 5. Meningitis. 6. Pleural effusions. 7. Medical noncompliance. SOCIAL HISTORY: Does not smoke. FAMILY HISTORY: Noncontributory. [facility] [address] [place] [address] CONSULTATION Name: ERIC HYDE Room #: [address] [place] [address] IN .R.#: [id number] Admission: 02/27/17 Attend Phys: Tan Carrillo MD Discharge: Date of : 57 Report #: [id number] ALLERGIES: None. CARDIAC MEDICATIONS: At the time of discharge include Coreg, hydralazine, Imdur 90 and diuretics. PHYSICAL EXAMINATION: VITAL SIGNS: Temperature is 36.9, pulse 92, respiration 20, blood pressure 133/87. GENERAL: She is in no acute distress. She is a cachectic-appearing female. HEENT: Oropharynx is clear. Her sclerae are anicteric. NECK: Supple, with no thyromegaly. HEART: Regular rate and rhythm with no murmurs. She does have elevated jugular venous pressure. She does have a positive hepatojugular reflux. LUNGS: Reveal diminished breath sounds on the right. No wheezes noted. ABDOMEN: Soft, nontender, nondistended. EXTREMITIES: There is 1-2+ lower extremity edema. Her pulses are 1+ throughout. NEUROLOGIC: Cranial nerves 2-12 are intact. LABORATORY DATA: White count is 6, hemoglobin 10, platelets 326. Sodium 144, potassium 4.1, chloride 112, bicarbonate 21, BUN 24, creatinine 2.1. Her chest x-ray shows a massive right pleural effusion. Her EKG shows some sinus tachycardia with some LVH and repolarization abnormalities. IMPRESSION: In summary, the patient is a 62-year-old with a history of a nonischemic cardiomyopathy with ejection fraction of 20-25% as well as hypertension, which is poorly controlled, and chronic renal insufficiency. She appears to be in acute on chronic congestive heart failure. I recommended that we resume her home medications and resume with IV diuretics. With regards to her pleural effusion, I have recommended that Pulmonary evaluate her for possible thoracentesis. In terms of her overall status, I think the patient has end-stage cardiomyopathy. I think that she cannot really care for herself at home. She probably needs some sort of mcc care facility and may need to consider hospice care. We will continue to follow. By: [id number] James Bautista MD /nt
[~2017-02-27 02:05] MED LIST changes: +CARVEDILOL25 MG PO
[2017-02-27 02:34] LABS: ABSOLUTE NEUTROPHILS 3.8 thou/uL (1.4-8.2); BASOPHILS 1.2 % (0.0-2.0); HEMATOCRIT 33.4 % (37.0-47.0); LYMPHOCYTES 21.5 % (24.0-44.0); MCH 29.7 pg (26.0-34.0); MCHC 29.9 g/dL (28.0-37.0); MCV 99.4 fL (80.0-100.0); MONOCYTES 10.3 % (1.0-8.0); PLATELET COUNT 326 thou/uL (150-400); RBC 3.36 mil/uL (4.20-5.00); RDW 20.2 % (10.5-14.5); WBC 6.1 thou/uL (4.0-11.0)
[2017-02-27 02:37] LABS: MANUAL DIFF NO
[2017-02-27 02:50] LABS: CALCIUM 8.3 mg/dL (8.5-10.1); CREATININE 2.1 mg/dL (0.6-1.0); POTASSIUM 4.1 mmol/L (3.5-5.1)
[2017-02-27 02:54] LABS: TROPONIN-I 0.07 ng/mL (<0.04-0.07)
[2017-02-27 13:16] LABS: HEMATOCRIT 31.7 % (37.0-47.0); HEMOGLOBIN 9.8 gm/dL (12.0-15.0); MCH 30.3 pg (26.0-34.0); MCHC 30.8 g/dL (28.0-37.0); MCV 98.4 fL (80.0-100.0); RBC 3.22 mil/uL (4.20-5.00); RDW 19.8 % (10.5-14.5); WBC 5.7 thou/uL (4.0-11.0)
[2017-02-27 13:33] LABS: CALCIUM 8.4 mg/dL (8.5-10.1); CREATININE 1.9 mg/dL (0.6-1.0); POTASSIUM 4.2 mmol/L (3.5-5.1)
[2017-02-27 13:34] LABS: INR 1.1; PROTIME 10.8 Seconds (9.3-11.4)
[2017-02-28 03:08] VITALS: BP 140/89
[2017-02-28 03:16] LABS: HEMATOCRIT 31.3 % (37.0-47.0); HEMOGLOBIN 9.8 gm/dL (12.0-15.0); MCH 30.5 pg (26.0-34.0); MCHC 31.3 g/dL (28.0-37.0); MCV 97.5 fL (80.0-100.0); RBC 3.21 mil/uL (4.20-5.00); RDW 19.9 % (10.5-14.5); WBC 4.9 thou/uL (4.0-11.0)
[2017-02-28 03:38] LABS: CALCIUM 8.5 mg/dL (8.5-10.1); POTASSIUM 3.6 mmol/L (3.5-5.1)
[2017-02-28 07:01] VITALS: BP 138/96
[2017-02-28 11:43] VITALS: BP 129/84
[2017-02-28 13:09] LABS: BF NUCLEATED CELLS 195; BF RBC 1911
[2017-02-28 13:11] LABS: CLARITY CLOUDY; COLOR YELLOW; TOTAL VOLUME 55 ML mL
[2017-02-28 13:26] LABS: MANUAL DIFF YES
[2017-02-28 14:41] LABS: BF NEUTROPHILS 18
[2017-02-28 14:42] LABS: BF COMMENTS 5 MESOTHELIAL CELLS; BF MACROPHAGE 30
[2017-02-28 15:16] VITALS: BP 137/94
[2017-02-28 19:37] VITALS: BP 132/80
[2017-03-01 03:58] VITALS: BP 146/95
[2017-03-01 06:10] LABS: BODY FLUID ALBUMIN 1.7 g/dL (()); BODY FLUID AMYLASE 87 U/L (()); BODY FLUID GLUCOSE 118 mg/dL (()); BODY FLUID LDH 179 IU/L (()); BODY FLUID PROTEIN 3.9 g/dL (())
[2017-03-01 08:00] VITALS: BP 155/102
[2017-03-01] MEDS ORDERED: ACETAMINOPHEN325 M1 PO (09:50)
[2017-03-01 12:00] VITALS: BP 137/87
[2017-03-01 16:51] LABS: BF NUCLEATED CELLS 367; BF RBC 1402
[2017-03-01 16:53] LABS: CLARITY HAZY; COLOR YELLOW; TOTAL VOLUME 60 mL
[2017-03-01 17:41] LABS: MANUAL DIFF YES
[2017-03-01 17:42] LABS: BF MACROPHAGE 46; BF NEUTROPHILS 20
[2017-03-03 05:35] LABS: BODY FLUID ALBUMIN 1.6 g/dL (()); BODY FLUID AMYLASE 71 U/L (()); BODY FLUID GLUCOSE 98 mg/dL (()); BODY FLUID LDH 183 IU/L (()); BODY FLUID PROTEIN 3.8 g/dL (())
== END 2017-03-01 17:27 | DRG 291 ==
LOC: ER 02:05 → EROBS 05:18 → 2N 05:18
PROVIDERS: Emergency Medicine; Internal Medicine Geriatric Medicine; Internal Medicine Pulmonary Disease
PROC: 0W993ZX Drainage of Right Pleural Cavity, Percutaneous Approach, Diagnostic (ICD-10-PCS; principal; 2017-03-01)
PROC: BB4BZZZ Ultrasonography of Pleura (ICD-10-PCS; principal; 2017-03-01)
DX: I13.0 Hypertensive heart and chronic kidney disease with heart failure and stage 1 through stage 4 chronic kidney disease, or unspecified chronic kidney disease (principal); J96.01 Acute respiratory failure with hypoxia; I50.43 Acute on chronic combined systolic (congestive) and diastolic (congestive) heart failure; E43 Unspecified severe protein-calorie malnutrition; J90 Pleural effusion, not elsewhere classified; N18.4 Chronic kidney disease, stage 4 (severe); J98.11 Atelectasis; N17.9 Acute kidney failure, unspecified; I42.9 Cardiomyopathy, unspecified; Z68.21 Body mass index [BMI] 21.0-21.9, adult; Z91.14 Patient's other noncompliance with medication regimen
CPT/HCPCS: 10081

== ENCOUNTER 2017-07-29 10:04 | Outpatient (CLI) | payer OTHER ==
[~2017-07-29] VITALS: Ht 149.9 cm; Wt 44.5 kg
--- NOTE | ~2017-07-29 | EKG ---
[facility] [place] [address] ELECTROCARDIOGRAM REPORT Name: MARY ELLENERIC DEVI [id number] Admission: 07/29/17 Attend Phys: Luis Antonio Siegel MD Discharge: 07/29/17 Date of : 57 Report #: [id number] THIS REPORT FOR: //name// [facility] ED Test Date: 2017-07-29 Test Time: 10:47:58 Pat Name: ERIC HYDE Department: Room: Gender: F Personal Care Attendant: Luís BOWIE : 1955 Requested By: Arabella Herbert Order Number: [id number] MD: Peter Solis Measurements Intervals [place] Rate: 75 P: 59 CA: 177 QRS: -5 QRSD: 101 T: 117 QT: 421 QTc: 471 Interpretive Statements Sinus rhythm Probable left atrial enlargement LVH with secondary repolarization abnormality Compared to ECG 05/02/2017 14:52:55 No significant change was found Electronically Signed On 07-30-2017 7:47:47 GAMEPLAY PROGRAMMER by Peter Solis [email or web address] <ELECTRONICALLY SIGNED> By: Peter Solis MD, [facility] 07/30/17 0747 1047 1047 Peter Solis MD, [facility] /EPI
--- NOTE | ~2017-07-29 | 2DMMODE ---
[facility] [address] [place] [address] 2 D/M-MODE ECHOCARDIOGRAM Name: ERIC HYDE Room #: DEP [facility]#: [id number] Admission: 07/29/17 Attend Phys: Luis Antonio Siegel MD Discharge: 07/29/17 Date of : 57 Date of Service: 07/29/17 1256 Report #: [id number] THIS REPORT FOR: //name// APPROVED REPORT Study performed: 07/29/2017 11:55:57 EXAM: Comprehensive 2D, Doppler, and color-flow Echocardiogram Patient Location: Echo lab Status: routine BSA: 1.25 HR: 72 bpm BP: 159/80 mmHg Other Information Study Quality: Good Indications CAD 2D Dimensions RVDd: 34.75 mm LVEF(%): 62.08 (>50%) IVSd: 12.90 (7-11mm) LVOT Diam: 19.65 (18-24mm) LVDd: 41.44 mm PWd: 12.95 (7-11mm) Ascending Ao: 33.58 (22-36mm) LVDs: 27.74 (25-40mm) Aortic Root: 28.58 mm IVC: 15.00 mm Garibay's LVEF: 62.08 % Volumes Left Atrial Volume (Systole) Single Plane 4CH: 37.01 mL Single Plane 2CH: 56.40 mL LA ESV Index: 43.00 mL/m2 Aortic Valve AoV Peak Alireza.: 1.65 m/s AO Peak Gr.: 10.91 mmHg AI Vmax: 4.40 m/s AI [place]: 2.93 m/s2 AI PHT: 436.55 ms Mitral Valve E/A Ratio: 0.6 MV Decel. Time: 285.81 ms [facility] [place] [address] 2 D/M-MODE ECHOCARDIOGRAM Name: MARY ELLENERICDAWIT DEVI [facility] [id number] Admission: 07/29/17 Attend Phys: Luis Antonio Siegel MD Discharge: 07/29/17 Date of : 57 Date of Service: 07/29/17 1256 Report #: [id number] E Max Alireza.: 0.71 m/s MV A Alireza.: 1.23 m/s MV PHT: 82.89 ms IVRT: 138.41 ms Pulmonary Valve PV Peak Alireza.: 0.88 m/s PV Peak Gr.: 3.12 mmHg Pulmonary Vein P Vein S: 0.66 m/s P Vein A: 0.34 m/s P Vein D: 0.27 m/s P Vein S/D Ratio: 2.44 Tricuspid Valve TR Peak Alireza.: 2.87 m/s RAP Estimate: 5.00 mmHg TR Peak Gr.: 32.96 mmHg PA Pressure: 38.00 mmHg Left Ventricle The left ventricle is normal size. Mild concentric left ventricular hypertrophy. Left ventricular systolic function is mild to moderately decreased. LVEF is 40-45%. Mild diastolic dysfunction is present (impaired relaxation pattern). Right Ventricle The right ventricle is normal size. Right ventricle is borderline normal. Atria Left atrium is moderately dilated. Right atrium is at the upper limits of normal. Aortic Valve Aortic valve is calcified. Mild to moderate aortic regurgitation. There is no aortic valvular stenosis. Mitral Valve Mild mitral annular calcification. Mitral valve leaflets are mildly thickened. Mild mitral regurgitation. No evidence of mitral valve stenosis. Tricuspid Valve The tricuspid valve is normal in structure. Mild tricuspid regurgitation. PAP is estimated at 38 mmHg. Pulmonic Valve [facility] [address] [place] [address] 2 D/M-MODE ECHOCARDIOGRAM Name: MARY ELLENERICDAWIT DEVI [facility] [id number] Admission: 07/29/17 Attend Phys: Luis Antonio Siegel MD Discharge: 07/29/17 Date of : 57 Date of Service: 07/29/17 1256 Report #: [id number] The pulmonary valve is normal in structure. Mild pulmonic regurgitation. Great Vessels The aortic root is normal in size. IVC is normal in size and collapses >50% with inspiration. Pericardium There is no pericardial effusion. <Conclusion> The left ventricle is normal size. Mild concentric left ventricular hypertrophy. Left ventricular systolic function is mild to moderately decreased. Mild diastolic dysfunction is present (impaired relaxation pattern). The right ventricle is normal size. Left atrium is moderately dilated. Mild to moderate aortic regurgitation. Mild mitral annular calcification. Mitral valve leaflets are mildly thickened. Mild mitral regurgitation. Mild tricuspid regurgitation. PAP is estimated at 38 mmHg. There is no pericardial effusion. <ELECTRONICALLY SIGNED> By: Luis Antonio Siegel MD 07/29/17 1256 1256 1256 Luis Antonio Siegel MD /INF
[~2017-07-29 10:04] MED LIST changes: +ACETAMINOPHEN325 M1 PO; +ENTRESTO 49 MG1 EACH PO
== END 2017-07-29 11:44 ==
LOC: ER 10:04 → CV 10:04 → EDSTATUS 10:38 → CV 11:44 → ER 11:44 → EDSTATUS 11:51 → CV 12:07
DX: I08.3 Combined rheumatic disorders of mitral, aortic and tricuspid valves (principal); I42.9 Cardiomyopathy, unspecified; I25.10 Atherosclerotic heart disease of native coronary artery without angina pectoris

== ENCOUNTER → 2017-12-19 | Outpatient (CLI) | payer OTHER | LOC: NUC 06:24 | DX: R07.9 Chest pain, unspecified (principal); R06.00 Dyspnea, unspecified; R22.1 Localized swelling, mass and lump, neck; I10 Essential (primary) hypertension; Z87.891 Personal history of nicotine dependence ==

== ENCOUNTER 2018-02-23 15:37 | Inpatient (IN) | payer OTHER ==
[~2018-02-23] VITALS: Ht 152.4 cm; Wt 55.2 kg
--- NOTE | ~2018-02-23 | HC ---
[facility] [place] [address] CONSULTATION Name: ERIC HYDE Room #: 358-[facility] IN M.R.#: [id number] Admission: 02/23/18 Attend Phys: Fransisco Field MD Discharge: 03/07/18 Date of : 57 Report #: [id number] THIS REPORT FOR: //name// CC: Fahad Field ELECTROPHYSIOLOGY CONSULTATION REASON FOR CONSULTATION: Cardiac arrest. HISTORY OF PRESENT ILLNESS: The patient is a 63-year-old female with history of a nonischemic cardiomyopathy, hypertension, hyperlipidemia and chronic renal insufficiency, who had a non-syncopal fall at home due to profound weakness and was brought in and found to be in acute renal failure, had a slightly elevated troponin of 0.26. on 02/26/2018, at around 03:00 in the morning, she was having worsening respiratory distress and then became unresponsive and was found to be pulseless. CPR was initiated and she eventually regained a pulse. There was never any documented ventricular arrhythmia and she never required a shock by the defibrillator. She was intubated and was in the ICU and she has been recently extubated. Speaking with her, she denies any chest pain, other than some muscle pains in the chest from probably chest compressions. She denies any shortness of breath. No PND or orthopnea. REVIEW OF SYSTEMS: GENERAL: No fevers or chills. HEENT: No blurred vision. CARDIOVASCULAR: As above. PULMONARY: She does have a cough, somewhat productive. GASTROINTESTINAL: She denies any nausea or vomiting. GENITOURINARY: She denies any dysuria. MUSCULOSKELETAL: She has the chest pain when she takes a deep breath. PAST MEDICAL HISTORY: 1. Nonischemic cardiomyopathy with an echo at this hospitalization showing EF of 25%. 2. Hypertension. 3. Chronic renal insufficiency. SOCIAL HISTORY: She does not smoke. FAMILY HISTORY: Noncontributory. ALLERGIES: None. HOME MEDICATIONS: Include Coreg, Entresto, torsemide and Imdur. PHYSICAL EXAMINATION: [facility] [address] [place] [address] CONSULTATION Name: MARY ELLENERIC DEVI Room #: 358-P [facility] IN M.R.#: [id number] Admission: 02/23/18 Attend Phys: Fransisco Field MD Discharge: 03/07/18 Date of : 57 Report #: [id number] VITAL SIGNS: Temperature is 35.8, pulse 79, respiratory rate 19, blood pressure 120/76 and sats 99%. GENERAL: She is in no acute distress. HEENT: Oropharynx is clear. NECK: Supple. No thyromegaly. HEART: Regular rate and rhythm, with no murmurs, rubs or gallops. She does not have elevated jugular venous pressure. LUNGS: Clear to auscultation bilaterally. ABDOMEN: Soft, nontender and nondistended, with no hepatosplenomegaly. EXTREMITIES: There is no clubbing, cyanosis or edema. NEUROLOGIC: Cranial nerves 2-12 are intact. Telemetry shows no ventricular arrhythmias. She is in sinus rhythm. DIAGNOSTIC DATA: Her recent EKG shows normal sinus rhythm, normal intervals and no ischemic changes with a normal QT. Her white count is 7.1, hemoglobin 11 and platelets 115,000. Chemistries: Sodium 147, potassium 3.5, BUN 68 and creatinine 2.5. Her recent echo shows EF of 25%. Chest x-ray shows no acute process. ASSESSMENT AND PLAN: 1. Cardiac arrest, likely due to pulseless electrical activity. 2. Nonischemic cardiomyopathy. 3. Chronic renal insufficiency. SUMMARY: In summary, the patient is a 63-year-old who had likely a respiratory arrest with PEA. There was never any documented ventricular arrhythmias. As such, I do not think that she warrants ICD implantation. I recommend optimizing her medical management for cardiomyopathy and we will have general Cardiology continue to follow. I will sign off. <ELECTRONICALLY SIGNED> By: James Bautista MD 03/17/18 1450 1331 0155 James Bautista MD /nt
--- NOTE | ~2018-02-23 | HC ---
[facility] [place] [address] CONSULTATION Name: ERIC HYDE Room #: 355-P ADM IN M.R.#: [id number] Admission: 02/23/18 Attend Phys: Fransisco Field MD Discharge: Date of : 57 Report #: [id number] THIS REPORT FOR: //name// CC: Fahad Field DATE OF SERVICE: 02/24/2018 REASON FOR CONSULTATION: Acute on chronic kidney disease. HISTORY OF PRESENT ILLNESS: The patient is well known to our service, longstanding hypertension, chronic kidney disease and a component of cardiorenal syndrome with depressed left ventricular ejection fraction of 10-20%. She apparently developed some hives, went to a radiation control worker, got some steroids, got weak, began retaining excessive fluid, became progressively weak and is now brought to the hospital. PAST MEDICAL HISTORY: She has the chronic kidney disease with baseline creatinine of about 2, the low ejection fraction, longstanding hypertension. HOME MEDICATIONS: Include carvedilol 12.5 mg b.i.d., torsemide 10 mg daily, baby aspirin, some statin for hyperlipidemia for which she is not clear of the exact medication. PAST SURGICAL HISTORY: Negative. SOCIAL HISTORY: Remote smoker. 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 FAMILY HISTORY: Her mother had heart disease and kidney disease. Father had lung disease, was a heavy smoker. No children. Does not know much about her brothers and sisters. REVIEW OF SYSTEMS: GENERAL: She has become progressively weak with some swelling in her legs. EYES: Her vision has been okay. ENT: Hearing okay, swallows okay. Denies mouth sores. ENDOCRINE: No diabetes or thyroid disease. RESPIRATORY: Does get somewhat easily short-winded. CARDIAC: No chest pain, angina, palpitations or arrhythmias. GASTROINTESTINAL: Appetite has been poor. No bloody stools. GENITOURINARY: No dysuria. Urine has fallen off a bit. NEUROLOGIC: Generalized weakness, no neuropathy. PSYCHIATRIC: Has been a little bit down of late. [facility] [address] [place] [address] CONSULTATION Name: ERIC HYDE Room #: 355-P [facility] IN M.R.#: [id number] Admission: 02/23/18 Attend Phys: Fransisco Field MD Discharge: Date of : 57 Report #: [id number] PHYSICAL EXAMINATION: GENERAL: This is a chronically ill-appearing patient, looking older than her stated age. SKIN: She has got scaly thickened skin over the lower extremities. SKELETAL: Well-developed, well-nourished. HEENT: Extraocular movements are full. Vision intact. Hearing intact. Mucous membranes moist. NECK: The neck veins are distended up to the angle of the jaw. There is no lymphadenopathy or thyromegaly. CHEST: Shows scanty crackles at the bases. HEART: Distant, but regular. ABDOMEN: Slightly distended. EXTREMITIES: Show trace generalized brawny edema with thickened skin. LABORATORY DATA: Sodium 140, potassium 4.5, chloride 110, bicarbonate 19, BUN 68, creatinine 3. ASSESSMENT AND PLAN: 1. Acute and chronic kidney disease, mostly cardiorenal, longstanding hypertension with some degree of hypertensive nephrosclerosis. Previous urinalysis has shown some proteinuria with protein creatinine ratios greater than 2 suggesting possible underlying renal disease and/or just bad hypertensive nephrosclerosis. I do not believe that she has had a kidney biopsy. At this point, symptomatic therapy is indicated. She has been given some IV fluids. Creatinine has improved a bit. She is on a low salt diet, which is certainly appropriate. Further treatment will indicate that she has been given an increased dose of carvedilol and torsemide. We will see the effects of that. 2. Hypertensive nephrosclerosis with longstanding hypertension. 3. Severe cardiomyopathy. Previous Cardiology notes are reviewed. I do not see a heart catheterization study, but apparently she was felt to have hypertensive heart disease as best I can tell from the previous notes. <ELECTRONICALLY SIGNED> By: Adam Cesar MD 02/25/18 1055 1014 1819 Adam Cesar MD /nt
--- NOTE | ~2018-02-23 | EKG ---
[place] [address] [address] [place] [address] ELECTROCARDIOGRAM REPORT Name: ERIC HYDE [facility] [id number] Admission: 02/23/18 Attend Phys: Discharge: Date of : 57 Report #: [id number] THIS REPORT FOR: //name// [facility] ED Test Date: 2018-02-23 Test Time: 16:00:43 Pat Name: ERIC HYDE Department: Room: Gender: F Photographic Spotter: : 1955 Requested By: Amanda Wang Order Number: [id number] MD: James Bautista Measurements Intervals [place] Rate: 99 P: 33 ND: 156 QRS: 24 QRSD: 100 T: 61 QT: 419 QTc: 538 Interpretive Statements Sinus rhythm Left atrial enlargement Borderline repolarization abnormality Compared to ECG 07/29/2017 10:47:58 Left ventricular hypertrophy no longer present Electronically Signed On 02-23-2018 17:29:07 CDT by James Bautista [email or web address] <ELECTRONICALLY SIGNED> By: James Bautista MD 02/23/18 1729 1600 99 James Bautista MD /DARIO
--- NOTE | ~2018-02-23 | 2DMMODE ---
[facility] [place] [address] 2 D/M-MODE ECHOCARDIOGRAM Name: ERIC HYDE Room #: 246-P ADM IN M.R.#: [id number] Admission: 02/23/18 Attend Phys: Stephan Torres Discharge: Date of : 57 Date of Service: 02/26/18 1209 Report #: [id number] THIS REPORT FOR: //name// APPROVED REPORT Study performed: 02/26/2018 11:01:50 EXAM: Comprehensive 2D, Doppler, and color-flow Echocardiogram Patient Location: ICU Status: routine BSA: 1.52 HR: 79 bpm BP: 108/78 mmHg Other Information Study Quality: Good Indications Congestive Heart Failure CAD Cardiomyopathy 2D Dimensions RVDd: 51.82 mm IVSd: 13.58 (7-11mm) LVOT Diam: 18.89 (18-24mm) LVDd: 45.80 mm PWd: 14.08 (7-11mm) Ascending Ao: 35.91 (22-36mm) LVDs: 40.62 (25-40mm) Aortic Root: 28.42 mm IVC: 22.00 mm Volumes Left Atrial Volume (Systole) Single Plane 4CH: 83.06 mL Single Plane 2CH: 92.29 mL LA ESV Index: 64.00 mL/m2 Aortic Valve AoV Peak Alireza.: 1.14 m/s AO Peak Gr.: 5.18 mmHg LVOT Max P.57 mmHg LVOT Max V: 0.94 m/s KALLIE Vmax: 2.33 cm2 AI Vmax: 4.70 m/s AI [place]: 2.65 m/s2 AI PHT: 513.99 ms [facility] [place] [address] [place] [address] 2 D/M-MODE ECHOCARDIOGRAM Name: ERIC HYDE Room #: 246- ADM IN ..#: [id number] Admission: 02/23/18 Attend Phys: Stephan Torres Discharge: Date of : 57 Date of Service: 02/26/18 1209 Report #: [id number] Mitral Valve E/A Ratio: 0.6 MV Decel. Time: 253.68 ms MV E Max Alireza.: 0.42 m/s MV A Alireza.: 0.75 m/s MV PHT: 73.57 ms IVRT: 173.01 ms Pulmonary Valve PV Peak Alireza.: 0.74 m/s PV Peak Gr.: 2.18 mmHg Tricuspid Valve TR Peak Alireza.: 2.95 m/s TR Peak Gr.: 34.74 mmHg PA Pressure: 50.00 mmHg Left Ventricle The left ventricle is normal size. There is global hypokinesis of the left ventricle. Mild to moderate concentric left ventricular hypertrophy. Left ventricular ejection fraction is severely decreased. LVEF is 25%. This study is not technically sufficient to allow evaluation of the LV diastolic function. Right Ventricle Right ventricle is dilated. Right ventricle is hypokinetic. Atria Left atrium is dilated. Right atrium is dilated. Aortic Valve The aortic valve is normal in structure. The Aortic valve is sclerotic. Mild aortic regurgitation. There is no aortic valvular stenosis. Mitral Valve The mitral valve is normal in structure. There is mitral annular calcification. Moderate mitral regurgitation. No evidence of mitral valve stenosis. Tricuspid Valve The tricuspid valve is normal in structure. There is moderate tricuspid regurgitation. Estimated PAP 50 mmHg. There is moderate pulmonary hypertension. Pulmonic Valve [facility] [address] [place] [address] 2 D/M-MODE ECHOCARDIOGRAM Name: ERIC HYDE Room #: 246-P [facility] IN .R.#: [id number] Admission: 02/23/18 Attend Phys: Stephan Torres Discharge: Date of : 57 Date of Service: 02/26/18 1209 Report #: [id number] The pulmonary valve is normal in structure. Trace to mild pulmonic regurgitation. Great Vessels The aortic root is normal in size. The inferior vena cava is dilated with no inspiratory collapse. Pericardium Trace pericardial effusion. <Conclusion> The left ventricle is normal size. There is global hypokinesis of the left ventricle. LVEF is 25%. Right ventricle is dilated. Right ventricle is hypokinetic. Left atrium is dilated. Right atrium is dilated. The aortic valve is normal in structure. The Aortic valve is sclerotic. Mild aortic regurgitation. The mitral valve is normal in structure. There is mitral annular calcification. Moderate mitral regurgitation. The tricuspid valve is normal in structure. There is moderate tricuspid regurgitation. Estimated PAP 50 mmHg. There is moderate pulmonary hypertension. The pulmonary valve is normal in structure. Trace to mild pulmonic regurgitation. Trace pericardial effusion. <ELECTRONICALLY SIGNED> By: Angus Walsh MD 02/26/181208 08 08 Angus Walsh MD /INF
--- NOTE | ~2018-02-23 | EKG ---
[place] [address] [facility] [facility] [place] [address] ELECTROCARDIOGRAM REPORT Name: MARY ELLENERIC VALENTEE Room #: 246-P ADM IN M.R.#: [id number] Admission: 02/23/18 Attend Phys: Fransisco Field MD Discharge: Date of : 57 Report #: [id number] THIS REPORT FOR: //name// [facility] Test Date: 2018-02-26 Test Time: 07:32:29 Pat Name: ERIC HYDE Department: Room: 246 P Gender: F Survey Rodman: JONAH : 1955 Requested By: Raphael Bonilla Order Number: [id number] MD: Peter Solis Measurements Intervals [place] Rate: 76 P: 25 AL: 149 QRS: 37 QRSD: 104 T: -83 QT: 436 QTc: 491 Interpretive Statements Sinus rhythm Nonspecific ST and T wave abnormality Borderline prolonged QT interval Compared to ECG 02/23/2018 16:00:43 ST and T wave abnormality is more pronounced Electronically Signed On 02-26-2018 8:20:14 CDT by Peter Solis [email or web address] <ELECTRONICALLY SIGNED> By: Peter Solis MD, [facility] 02/26/18 0820 Peter Solis MD, [facility] /EPI
--- NOTE | ~2018-02-23 | H ---
[facility] [place] [address] HISTORY AND PHYSICAL Name: ERIC HYDE Room #: 355-P ADM IN M.R.#: [id number] Admission: 02/23/18 Attend Phys: Fransisco Field MD Discharge: Date of : 57 Report #: [id number] THIS REPORT FOR: //name// CC: Fahad Field DATE OF SERVICE: 02/23/2018 CHIEF COMPLAINT: Weakness. HISTORY OF PRESENT ILLNESS: The patient is a 63-year-old female with chronic medical problems, came to the Emergency Room after a fall. She said for a couple of days, she has felt a lot of swelling and fluid in her legs and that her legs felt heavy and has had a couple of falls. Yesterday, she was on the floor and said she has been there for a couple of days and could not get up. Ultimately, she was found by family and brought to the Emergency Room. PAST MEDICAL HISTORY: Chronic kidney disease stage 4, hypertensive heart disease, hypertensive cardiomyopathy, unspecified liver disease. PAST SURGICAL HISTORY: Unknown. FAMILY HISTORY: Noncontributory. SOCIAL HISTORY: Denies chronic alcohol or tobacco use. ALLERGIES: None. MEDICATIONS: Demadex 20 mg, Imdur 30 mg, Coreg 25 mg twice a day, Tylenol. REVIEW OF SYSTEMS: She denies headache, chest pain, shortness of breath, abdominal pain, nausea, vomiting, diarrhea, constipation, dysuria. OBJECTIVE: VITAL SIGNS: Temperature 36.3, pulse 72, respirations 20, blood pressure 124/86, O2 sat 100% on room air. GENERAL: She is awake and alert, lying in bed, in no distress. HEAD AND NECK: Unremarkable. LUNGS: Clear. HEART: Regular. ABDOMEN: Soft, normoactive bowel sounds, somewhat protuberant. EXTREMITIES: 2+ lower extremity edema. SKIN: She seems to have a dry scaly eczematous type lesions on lower legs, arms and trunk. NEUROLOGIC: Cranial nerves intact. Speech is fluent. Motor strength 3/5 throughout. [facility] [address] [place] [address] HISTORY AND PHYSICAL Name: ERIC HYDE Room #: 355-P [facility] IN M.R.#: [id number] Admission: 02/23/18 Attend Phys: Fransisco Field MD Discharge: Date of : 57 Report #: [id number] ASSESSMENT: 1. Acute on chronic kidney disease stage 4. 2. Hypertensive heart disease. 3. Hypertensive cardiomyopathy. 4. Recurrent falls. 5. Generalized weakness. 6. Liver disease. 7. Mild protein-calorie malnutrition, albumin 2.8. PLAN: Work on medically optimizing her situation for now. The renal service has assessed her and home medications have been restarted. Therapies to be ordered and ask Social Work to see her regarding living situation. <ELECTRONICALLY SIGNED> By: Tan Carrillo MD 02/25/18 0939 [id number] MD jose Baldwin
--- NOTE | ~2018-02-23 | HC ---
[facility] [place] [address] CONSULTATION Name: ERIC HYDE Room #: 246-P ADM IN M.R.#: [id number] Admission: 02/23/18 Attend Phys: Fransisco Field MD Discharge: Date of : 57 Report #: [id number] THIS REPORT FOR: //name// CC: Fahad Field TYPE OF REPORT: Pulmonary consultation. HISTORY OF PRESENT ILLNESS: The patient is a 63-year-old -[place] female with multiple medical problems including chronic kidney disease, presents to the Emergency Room with lower extremity weakness and fluid retention. She was found to have worsening renal function. The patient was admitted on 02/23/2018. Around 3:20 a.m., Code Blue was called. The patient was found to be unresponsive. Apparently, according to the nursing, she got up to go to the bathroom. When she returned, she complained of lightheadedness and subsequently became unconscious. She was found to be pulseless and unresponsive by the nursing staff. CPR was given. She was subsequently intubated by the Emergency Department. She was subsequently transferred to the ICU. A Pulmonary consultation was requested. Currently, she is unresponsive. Of note, the patient was unhooked from the telemetry when she went to the bathroom. Therefore, there was no telemetry tracing during this event. PAST MEDICAL HISTORY: Notable for severe nonischemic cardiomyopathy with ejection fraction of 20%-25%, hypertension, chronic kidney disease, history of pleural effusions, echocardiogram performed in July of 2017 and has moderate mitral regurgitation, mild pulmonary hypertension, chronic diastolic heart failure, hypertensive cardiovascular disease, baseline creatinine of 2.6, peptic ulcer disease, history of meningitis, history of positive antinuclear antibody in 2015 and medical noncompliance. PAST SURGICAL HISTORY: Unremarkable. ALLERGIES: None to medications. HOME MEDICATIONS: Coreg, Tylenol, Imdur and Demadex. FAMILY HISTORY: Noncontributory. SOCIAL HISTORY: No history of tobacco or alcohol use. REVIEW OF SYSTEMS: Deferred as the patient is intubated. PHYSICAL EXAMINATION: GENERAL: She is obtunded. She was hypotensive, post-code with a systolic blood pressure of 84 mmHg, currently is 110/80 mmHg and saturation 91%. [address] [address] CONSULTATION Name: ERIC HYDE Room #: [facility] IN M.R.#: [id number] Admission: 02/23/18 Attend Phys: Fransisco Field MD Discharge: Date of : 57 Report #: [id number] HEENT: Normocephalic and atraumatic. She is orally intubated. NECK: Supple, without lymphadenopathy or thyromegaly. CHEST: Breath sounds are fair. Few scattered crackles in the bases. No wheezes. CARDIOVASCULAR: Normal S1 and S2. There are no obvious murmurs or gallop. Pulses are 2+/4+ bilaterally. BREASTS: Exam deferred. ABDOMEN: Soft and nontender. No organomegaly or masses felt. GENITOURINARY: Deferred. RECTAL: Deferred. EXTREMITIES: No cyanosis or clubbing. There is a 2+ bilateral edema. RADIOLOGICAL DATA: Portable chest x-ray shows ET tube at the rogers, this was withdrawn and pulled back. Followup chest x-ray is pending, cardiomegaly is present and increased pulmonary vascular marking consistent with heart failure. Echocardiogram on this admission showed ejection fraction approximately 25%, global hypokinesis involving the left ventricle, right ventricle is dilated, left ventricle is dilated, aortic valve is grossly unremarkable, moderate mitral regurgitation and pulmonary artery pressure measuring [address]. EKG shows nonspecific ST and T-wave abnormalities. LABORATORY DATA: Troponin 0.2. Arterial blood gas post-code revealed: pH 7.14, pCO2 of 51 and pO2 88 on FiO2 of 60%. Follow up arterial blood gas revealed: pH 7.36, pCO2 of 31, pO2 of 83 mmHg on FiO2 of 60%. Sodium 144, potassium 4.8, chloride 110, CO2 is 22 and creatinine 3.3. Liver enzymes are moderately abnormal. WBC 6800 on day of admission and hemoglobin at 13.2 on the day of admission. Albumin 2.5. IMPRESSION: Cardiopulmonary arrest in this 63-year-old -[place] female with a history of severe nonischemic cardiomyopathy, chronic kidney disease. Etiologies suspect cardiac in origin, given a cardiomyopathy. No prior history of chronic lung disease including chronic obstructive pulmonary disease or interstitial lung disease. Chest x-ray also does not show any obvious evidence of consolidation such as pneumonia, etc. 1. Acute respiratory failure, hypercapnic and hypoxic. 2. Severe nonischemic cardiomyopathy, ejection fraction 25%, etiology yet to be determined but may be related to possible hypertensive heart disease. 3. Acute kidney injury/chronic kidney disease. 4. Weakness and debility. 5. Medical noncompliance. 6. History of recurrent right-sided pleural effusion due to heart failure. 7. Long history of hypertension with hypertensive nephrosclerosis. RECOMMENDATIONS: We will continue mechanical ventilation, wean O2 for saturation 90%. She will need to be assessed closely for possible hypoxic brain injury given presence of encephalopathy. DVT and GI prophylaxis is indicated. [address] [address] CONSULTATION Name: ERIC HYDE Room #: 246-P ADM IN M.R.#: [id number] Admission: 02/23/18 Attend Phys: Fransisco Field MD Discharge: Date of : 57 Report #: [id number] Given severe comorbid conditions including severe nonischemic cardiomyopathy, hypertension, chronic kidney disease, with history of medical compliance, overall outlook and prognosis felt to be poor. Thank you for this consultation. <ELECTRONICALLY SIGNED> By: Raphael Bonilla MD 02/27/18 [id number] 0227 Raphael Bonilla MD /nt
[2018-02-23 15:39] VITALS: BP 134/99
[2018-02-23 16:06] LABS: URINE BILIRUBIN 1+ (Negative); URINE BLOOD NEGATIVE (Negative); URINE CLARITY CLEAR; URINE COLOR YELLOW; URINE GLUCOSE-RANDOM* NEGATIVE (Negative); URINE KETONES NEGATIVE (Negative); URINE LEUKOCYTES-REFLEX NEGATIVE (Negative); URINE NITRITE-REFLEX NEGATIVE (Negative); URINE PROTEIN (DIPSTICK) 2+ (Negative); URINE SPECIFIC GRAVITY >= 1.030 (1.005-1.035); URINE UROBILINOGEN 0.2 E.U./dl (0.2-1.0)
[2018-02-23 16:12] LABS: ICTOTEST (BILI CONFIRMATORY) Positive (Negative)
[2018-02-23 16:16] LABS: CASTS None Seen /LPF (None Seen); CRYSTALS None Seen /LPF (None Seen); SQUAMOUS 0-3 Few /LPF (0-3)
[2018-02-23 16:17] LABS: AMORPHOUS URATES Many /LPF (None Seen); BACTERIA-REFLEX None Seen /HPF (None Seen); HYALINE CASTS 4-10 Moderate /LPF (None Seen); URINE RBC 0-2 Rare /HPF (0-2); URINE WBC-REFLEX 0-5 Rare /HPF (0-5)
[2018-02-23 16:49] LABS: ABSOLUTE NEUTROPHILS 5.2 thou/uL (1.4-8.2); BASOPHILS 0.3 % (0.0-2.0); EOSINOPHILS 0.1 % (0.0-3.0); HEMATOCRIT 41.1 % (37.0-47.0); HEMOGLOBIN 13.2 gm/dL (12.0-15.0); LYMPHOCYTES 15.7 % (24.0-44.0); MCH 28.9 pg (26.0-34.0); MCV 90.2 fL (80.0-100.0); MONOCYTES 6.2 % (1.0-8.0); PLATELET COUNT 196 thou/uL (150-400); POLYS 77.7 % (36.0-66.0); RBC 4.56 mil/uL (4.20-5.00); RDW 17.1 % (10.5-14.5); WBC 6.8 thou/uL (4.0-11.0)
[2018-02-23 17:07] LABS: CREATININE 3.1 mg/dL (0.6-1.0); POTASSIUM 4.6 mmol/L (3.5-5.1)
[2018-02-23 17:16] LABS: ALBUMIN 2.8 g/dL (3.4-5.0); TOTAL PROTEIN 7.4 g/dL (6.4-8.2); TROPONIN-I 0.26 ng/mL (<0.06)
[2018-02-23 18:11] VITALS: BP 134/99
[2018-02-23 20:07] VITALS: BP 135/82
[2018-02-24 00:44] VITALS: BP 140/90
[2018-02-24 04:27] VITALS: BP 142/91
[2018-02-24 06:28] LABS: POTASSIUM 4.5 mmol/L (3.5-5.1)
[2018-02-24 07:58] VITALS: BP 139/88
[2018-02-24 11:40] VITALS: BP 124/86
[2018-02-24 16:29] VITALS: BP 118/81
[2018-02-24 19:27] VITALS: BP 106/73
[2018-02-25 04:40] LABS: ALBUMIN 2.3 g/dL (3.4-5.0); CALCIUM 8.6 mg/dL (8.5-10.1); PHOSPHORUS 6.9 mg/dL (2.5-4.9); POTASSIUM 4.7 mmol/L (3.5-5.1)
[2018-02-25 05:40] VITALS: BP 110/75
[2018-02-25 07:52] VITALS: BP 128/82
[2018-02-25 16:49] VITALS: BP 115/85
[2018-02-25 19:37] VITALS: BP 129/91
[2018-02-26] VITALS (23 sets, daily range): BP systolic 84–137; BP diastolic 60–97
[2018-02-26 03:52] LABS: ALBUMIN 2.5 g/dL (3.4-5.0); CREATININE 3.3 mg/dL (0.6-1.0); PHOSPHORUS 5.8 mg/dL (2.5-4.9); POTASSIUM 4.8 mmol/L (3.5-5.1)
[2018-02-26 04:07] LABS: BE(vivo) -11.5 mmol/L (-2 to +3); HCO3 17.4 mmol/L (22.0-26.0); PCO2 51.4 mmHg (35.0-45.0); PO2 88.8 mmHg (80.0-100.0); pH 7.148 (7.360-7.450)
[2018-02-26 07:01] LABS: BE(vivo) -6.7 mmol/L (-2 to +3); HCO3 17.6 mmol/L (22.0-26.0); PCO2 31.8 mmHg (35.0-45.0); PO2 83.7 mmHg (80.0-100.0); pH 7.362 (7.360-7.450); sO2 96.1 % (92.0-98.0)
[2018-02-27] VITALS (24 sets, daily range): BP systolic 87–121; BP diastolic 57–83
[2018-02-27 05:25] LABS: BE(vivo) -2.1 mmol/L (-2 to +3); HCO3 21.8 mmol/L (22.0-26.0); PCO2 34.4 mmHg (35.0-45.0); PO2 115.4 mmHg (80.0-100.0); sO2 98.3 % (92.0-98.0)
[2018-02-27 05:42] LABS: HEMATOCRIT 36.1 % (37.0-47.0); HEMOGLOBIN 11.3 gm/dL (12.0-15.0); MCH 27.9 pg (26.0-34.0); MCHC 31.4 g/dL (28.0-37.0); MCV 88.9 fL (80.0-100.0); RBC 4.06 mil/uL (4.20-5.00); RDW 17.2 % (10.5-14.5); WBC 7.1 thou/uL (4.0-11.0)
[2018-02-27 05:51] LABS: ALBUMIN 1.9 g/dL (3.4-5.0); CALCIUM 7.7 mg/dL (8.5-10.1); CREATININE 2.6 mg/dL (0.6-1.0); PHOSPHORUS 4.3 mg/dL (2.5-4.9)
[2018-02-27 05:52] LABS: POTASSIUM 4.5 mmol/L (3.5-5.1)
[2018-02-27 08:39] LABS: BE(vivo) -2.6 mmol/L (-2 to +3); PCO2 32.7 mmHg (35.0-45.0); PO2 86.3 mmHg (80.0-100.0); pH 7.426 (7.360-7.450); sO2 96.8 % (92.0-98.0)
[2018-02-27 12:24] LABS: HCO3 22.9 mmol/L (22.0-26.0); PCO2 35.7 mmHg (35.0-45.0); PO2 93.4 mmHg (80.0-100.0); pH 7.425 (7.360-7.450); sO2 97.3 % (92.0-98.0)
[2018-02-28] VITALS (20 sets, daily range): BP systolic 110–131; BP diastolic 70–93
[2018-02-28 06:04] LABS: ALBUMIN 2.1 g/dL (3.4-5.0); CALCIUM 8.1 mg/dL (8.5-10.1); CREATININE 2.5 mg/dL (0.6-1.0); PHOSPHORUS 4.8 mg/dL (2.5-4.9)
[2018-02-28 06:09] LABS: POTASSIUM 3.5 mmol/L (3.5-5.1)
[2018-03-01] VITALS (24 sets, daily range): BP systolic 85–141; BP diastolic 56–100
[2018-03-01 05:41] LABS: HEMATOCRIT 38.3 % (37.0-47.0); HEMOGLOBIN 12.1 gm/dL (12.0-15.0); MCH 28.2 pg (26.0-34.0); MCHC 31.5 g/dL (28.0-37.0); MCV 89.6 fL (80.0-100.0); RBC 4.27 mil/uL (4.20-5.00); RDW 17.4 % (10.5-14.5); WBC 5.8 thou/uL (4.0-11.0)
[2018-03-01 05:54] LABS: ALBUMIN 1.8 g/dL (3.4-5.0); CALCIUM 8.2 mg/dL (8.5-10.1); CREATININE 2.4 mg/dL (0.6-1.0); PHOSPHORUS 4.4 mg/dL (2.5-4.9); POTASSIUM 3.3 mmol/L (3.5-5.1)
[2018-03-02] VITALS: BP 140/98
[2018-03-02 03:31] VITALS: BP 151/100
[2018-03-02 06:03] LABS: ALBUMIN 2.1 g/dL (3.4-5.0); CALCIUM 8.7 mg/dL (8.5-10.1); CREATININE 2.2 mg/dL (0.6-1.0); PHOSPHORUS 3.9 mg/dL (2.5-4.9)
[2018-03-02 07:28] VITALS: BP 131/89
[2018-03-02 12:04] VITALS: BP 125/82
[2018-03-02 16:07] VITALS: BP 142/84
[2018-03-02 18:58] VITALS: BP 135/76
[2018-03-03 03:32] VITALS: BP 144/91
[2018-03-03 07:27] VITALS: BP 144/99
[2018-03-03 11:34] VITALS: BP 166/107
[2018-03-03 15:15] VITALS: BP 162/107
[2018-03-03 15:23] VITALS: BP 162/107
[2018-03-03 19:30] VITALS: BP 157/99
[2018-03-04] VITALS: BP 140/89
[2018-03-04 04:10] VITALS: BP 134/76
[2018-03-04 05:52] LABS: ALBUMIN 2.1 g/dL (3.4-5.0); CALCIUM 8.6 mg/dL (8.5-10.1); CREATININE 2.1 mg/dL (0.6-1.0); POTASSIUM 4.2 mmol/L (3.5-5.1)
[2018-03-04 08:00] VITALS: BP 169/116
[2018-03-04 16:00] VITALS: BP 150/84
[2018-03-04 19:50] VITALS: BP 158/88
[2018-03-05 04:00] VITALS: BP 161/92
[2018-03-05 06:37] LABS: CALCIUM 8.5 mg/dL (8.5-10.1); CREATININE 2.3 mg/dL (0.6-1.0); PHOSPHORUS 3.2 mg/dL (2.5-4.9); POTASSIUM 3.8 mmol/L (3.5-5.1)
[2018-03-05 07:21] VITALS: BP 156/96
[2018-03-05 12:29] VITALS: BP 134/89
[2018-03-05 15:26] VITALS: BP 152/103
[2018-03-05 20:25] VITALS: BP 139/81
[2018-03-06 04:37] VITALS: BP 165/96
[2018-03-06 05:43] LABS: ALBUMIN 2.1 g/dL (3.4-5.0); CALCIUM 8.3 mg/dL (8.5-10.1); CREATININE 2.2 mg/dL (0.6-1.0); POTASSIUM 4.5 mmol/L (3.5-5.1)
[2018-03-06 07:40] VITALS: BP 163/91
[2018-03-06 11:27] VITALS: BP 159/91
[2018-03-06 17:10] VITALS: BP 179/84
[2018-03-06 19:28] VITALS: BP 139/88
[2018-03-07 03:00] VITALS: BP 157/101
[2018-03-07 06:31] LABS: ALBUMIN 2.2 g/dL (3.4-5.0); CALCIUM 8.3 mg/dL (8.5-10.1); CREATININE 2.3 mg/dL (0.6-1.0); PHOSPHORUS 3.4 mg/dL (2.5-4.9); POTASSIUM 4.8 mmol/L (3.5-5.1)
[2018-03-07 07:20] VITALS: BP 187/97
[2018-03-07 12:00] VITALS: BP 135/95
[2018-03-07] MEDS ORDERED: IPRAT-ALBUT 0.5-3 ML INH (15:28)
[2018-03-07] MEDS ORDERED: COREG25 MG PO (15:28)
[2018-03-07] MEDS ORDERED: HYDRALAZINE 2525 MG PO (15:29)
[2018-03-07] MEDS ORDERED: ENOXAPARIN30 MG/0.1 SUBQ (15:30)
[2018-03-07] MEDS ORDERED: SKIN TREATMENT225 GM TOP (15:32)
[2018-03-07] MEDS ORDERED: APAP650 PO (15:33)
[2018-03-07] MEDS ORDERED: IMDUR 30 MG TAB30 M1 PO (15:33)
[2018-03-07] MEDS ORDERED: CHILDREN'S ASPI81 M1 PO (15:33)
[2018-03-07] MEDS ORDERED: PEPCID20 MG PO (15:33)
[2018-03-07] MEDS ORDERED: DEMADEX20 MG PO (15:33)
[2018-03-07] MEDS ORDERED: NORCO 5-325 TA1 EACH PO (15:34)
== END 2018-03-07 17:08 | DRG 682 ==
LOC: ER 15:37 → ICU 17:48 → EROBS 17:48 → 3W 17:48 → ICU 02-26 03:53 → 3W 03-02 00:07
PROVIDERS: Internal Medicine; Internal Medicine Geriatric Medicine; Internal Medicine Nephrology; Internal Medicine Pulmonary Disease; Student in an Organized Health Care Education/Training Program
PROC: 5A1945Z Respiratory Ventilation, 24-96 Consecutive Hours (ICD-10-PCS; principal; 2018-02-27)
PROC: 0BH17EZ Insertion of Endotracheal Airway into Trachea, Via Natural or Artificial Opening (ICD-10-PCS; principal; 2018-02-27)
DX: N17.9 Acute kidney failure, unspecified (principal); I46.9 Cardiac arrest, cause unspecified; J96.01 Acute respiratory failure with hypoxia; J96.02 Acute respiratory failure with hypercapnia; J18.9 Pneumonia, unspecified organism; G93.41 Metabolic encephalopathy; E44.1 Mild protein-calorie malnutrition; I13.0 Hypertensive heart and chronic kidney disease with heart failure and stage 1 through stage 4 chronic kidney disease, or unspecified chronic kidney disease; I43 Cardiomyopathy in diseases classified elsewhere; E87.0 Hyperosmolality and hypernatremia; A04.72 Enterocolitis due to Clostridium difficile, not specified as recurrent; J44.0 Chronic obstructive pulmonary disease with (acute) lower respiratory infection; G72.81 Critical illness myopathy; I50.42 Chronic combined systolic (congestive) and diastolic (congestive) heart failure; I27.20 Pulmonary hypertension, unspecified; N18.4 Chronic kidney disease, stage 4 (severe); K76.9 Liver disease, unspecified; Z60.2 Problems related to living alone; E87.6 Hypokalemia; R13.10 Dysphagia, unspecified; R29.6 Repeated falls; Z87.891 Personal history of nicotine dependence; Z82.49 Family history of ischemic heart disease and other diseases of the circulatory system; Z84.1 Family history of disorders of kidney and ureter; Z83.6 Family history of other diseases of the respiratory system; Z87.11 Personal history of peptic ulcer disease; Z91.14 Patient's other noncompliance with medication regimen; Z68.23 Body mass index [BMI] 23.0-23.9, adult; Z79.82 Long term (current) use of aspirin; Z79.899 Other long term (current) drug therapy
CPT/HCPCS: 10078; 10779; 10879

== ENCOUNTER 2018-03-07 14:11 | Inpatient (IN) | payer OTHER ==
[~2018-03-07] VITALS: Ht 152.4 cm; Wt 45.1 kg
--- NOTE | ~2018-03-07 | H ---
[facility] [place] [address] HISTORY AND PHYSICAL Name: ERIC HYDE Room #: 503-P ADM IN M.R.#: [id number] Admission: 03/07/18 Attend Phys: Tan Ellison MD Discharge: Date of : 57 Report #: [id number] THIS REPORT FOR: //name// CC: Tan Moody Emir DATE OF SERVICE: 03/08/2018 HISTORY OF PRESENT ILLNESS: The patient is a 63-year-old -German female originally admitted to [facility] on 02/23/2018 after a fall at home. She has been found down after 2 days without food, water and medication. She was diagnosed with [id number] kidney disease stage 4, cardiorenal syndrome, cardiomyopathy. She sustained a code blue event on 02/26/2018, was intubated, diagnosed with acute hypoxic respiratory failure, aspiration pneumonia, encephalopathy and critical illness myopathy. She was noted to be significantly weak and debilitated and need significant increased assistance with her critical illness myopathy. She also was diagnosed with C. diff colitis. She was treated for wounds to bilateral lower extremities. She was further medically stabilized and has now been admitted for acute in-hospital inpatient rehabilitation. She has been diagnosed with hypoxic and metabolic encephalopathy as well as critical illness myopathy. PAST MEDICAL HISTORY, ALLERGIES, SOCIAL HISTORY: Please see the dictated history and physical. The patient had been living in an independent living apartment by herself. She has a cane and a walker at home, but did not utilize. She was independent with ADLs and IADLs, and was still driving. MEDICATIONS: Please see the full medication listing. This includes vitamins, herbals, and supplements. REVIEW OF SYSTEMS: No current complaints of chest pain, shortness of breath or abdominal discomfort. PHYSICAL EXAMINATION: GENERAL: A 63-year-old slender -German female, in no obvious distress. VITAL SIGNS: Last recorded temperature 36, pulse 83, respirations 18, and blood pressure 150/82. The patient was sleepy when seen earlier, but was in no distress. She is in C. diff precautions. HEENT: Facies appeared symmetric. CHEST: Sounded clear to auscultation. CARDIOVASCULAR: Regular rate and rhythm. ABDOMEN: Bowel sounds positive, nontender. GENITOURINARY AND RECTAL: Deferred. NEUROLOGIC: She has wounds to her right and left ankle with Kerlix. She has chronic venous stasis changes to bilateral lower extremities. Functional range of motion, decreased strength in upper and lower extremities to grade 3+/5. [address] [address] HISTORY AND PHYSICAL Name: ERIC HYDE Room #: [address] [place] [address] IN M.R.#: [id number] Admission: 03/07/18 Attend Phys: Tan Ellison MD Discharge: Date of : 57 Report #: [id number] Poor mold insert changer strength bilaterally. No focal calf swelling. She is needing mid to mod assist for sit to stand and to attempt to ambulate a short distance with a front-wheeled walker. ASSESSMENT: 1. Hypoxic and metabolic encephalopathy. 2. Critical illness myopathy. 3. Dysphagia. 4. Clostridium difficile colitis. 5. Status post cardiopulmonary arrest. 6. Acute on chronic kidney disease stage 4 with underlying nephrosclerosis. 7. Severe nonischemic cardiomyopathy. 8. Acute hypoxic respiratory failure. 9. Chronic obstructive pulmonary disease. 10. Hypertension. 11. Protein calorie malnutrition. PLAN: From a postadmission physician evaluation perspective, there are no relevant changes since the preadmission screening. Please see the above review of prior and current medical and functional conditions and comorbidities. Please see the patient's previous and current functional status. As far as risk of complications, the patient has multiple medical comorbidities as noted above. Initial plan of care involves the interdisciplinary acute inpatient rehabilitation program with the goal of maximizing the patient's functional independence, so she can hopefully return back to her prior living situation. Measurable functional goals would be for the patient to become modified independent at least initially at a walker level with mobility and ADLs as well as improvement with cognition. She is now on mechanical soft, thin liquid diet with speech therapy involved. Prognosis reasonably good with estimated length of stay probably at least 10 days to 2 weeks and possibly longer pending progress. Potential barriers would include her multiple medical comorbidities and decreased functional status. The patient meets diagnostic criteria for an acute in-hospital inpatient rehabilitation stay. She meets the medical necessity criteria and we will have the data communications software consultant physicians continue to follow up. She does have the tolerance for therapies and has appropriate discharge goals back to the home setting. <ELECTRONICALLY SIGNED> By: Tan Ellison MD 03/21/18 0910 0835 1 Tan Ellison MD /nt
--- NOTE | ~2018-03-07 | PLAN ---
[facility] [place] [address] REHAB UNIT PLAN OF CARE Name: ERIC HYDE Room #: 503-P ADM IN M.R.#: [id number] Admission: 03/07/18 Attend Phys: Tan Ellison MD Discharge: Date of : 57 Report #: [id number] THIS REPORT FOR: //name// CC: Tan Moody Emir DATE OF SERVICE: 03/10/2018 PROGRESS NOTE/OVERALL PLAN OF CARE SUBJECTIVE: The patient is seen back today in followup. She is in no distress. Last recorded temperature 97.8, pulse 85, respirations 14, blood pressure 139/84. Transfers are contact guard with gait contact guard 150 feet front-wheeled walker. In occupational therapy, lower body dressing is mod assist, moderate comprehension deficits. There is no calf swelling. She is pleasant, follows basic commands. ASSESSMENT: 1. Hypoxic and metabolic encephalopathy. 2. Critical illness myopathy. 3. Dysphagia. She is on a mechanical soft, thin liquid diet. 4. Clostridium difficile colitis. 5. Status post cardiopulmonary arrest. 6. Acute on chronic kidney disease stage 4 with underlying nephrosclerosis. 7. Severe nonischemic cardiomyopathy. 8. Acute hypoxic respiratory failure. 9. Chronic obstructive pulmonary disease. 10. Hypertension. PLAN: The overall plan of care is based on the preadmission screen, post-admission physician evaluation, and information garnered from therapy assessments. 1. Estimated length of stay is probably at least 10 days to 2 weeks depending progress. 2. Medical prognosis is reasonably good. 3. Anticipated interventions include the interdisciplinary acute inpatient rehabilitation program with PT and OT and speech, rehabilitation nursing assisting regarding medication management, skin care prophylaxis, bowel and bladder issues and nursing education. The loss control consultant physicians will be involved as well as the rest of the interdisciplinary acute inpatient rehabilitation program. 4. Anticipated functional outcomes would be for the patient to become modified independent with transfers, mobility and ADLs as well as improved cognition, so the patient can return back to the home setting. 5. Discharge destination would be back to the home setting where the patient lives in an independent living apartment by herself. [facility] [address] [place] [address] REHAB UNIT PLAN OF CARE Name: ERIC HYDE Room #: 503-P [facility] IN .R.#: [id number] Admission: 03/07/18 Attend Phys: Tan Ellison MD Discharge: Date of : 57 Report #: [id number] 6. Expected therapy by discipline includes PT and OT and speech 1 hour per day each 5 days a week throughout the duration of the acute inpatient rehabilitation stay. <ELECTRONICALLY SIGNED> By: Tan Ellison MD 03/21/18 0910 0839 0958 Tan Ellison MD /nt
--- NOTE | ~2018-03-07 | H ---
[facility] [place] [address] HISTORY AND PHYSICAL Name: ERIC HYDE Room #: 503-P ADM IN M.R.#: [id number] Admission: 03/07/18 Attend Phys: Tan Ellison MD Discharge: Date of : 57 Report #: [id number] THIS REPORT FOR: //name// CC: Tan Moody Emir DATE OF SERVICE: 03/07/2018 HISTORY OF PRESENT ILLNESS: This is a 63-year-old -[place] female who presented to the Emergency Department after a fall at home. She was found down after 2 days without food, water and medication. In the Emergency Department, she was diagnosed with dnugf-ob-iinnruz kidney disease stage 4, cardiorenal syndrome, cardiomyopathy. She was doing okay until 02/26/2018, patient became increasingly short of air and sustained a code blue event. She was intubated and transferred to the ICU. She was able to be extubated. She was then diagnosed with aspiration pneumonia, acute hypoxic respiratory failure, nephrosclerosis, cardiorenal syndrome, encephalopathy and critical illness myopathy. She is now stabilized and will be admitted to acute inpatient rehab to continue her therapies and rehab efforts. Today, the patient denies chest pain. She does have shortness of air, especially with longer sentences. She denies cough. She denies numbness, tingling, dizziness, headache. She is on antibiotics for C. diff colitis. Her stools are becoming more formed and less frequent. She denies abdominal pain; however, she does note abdominal distention/bloating. She denies dysuria. She has wounds to her bilateral lower extremities. PAST MEDICAL HISTORY: Hypertension, CHF, cardiomyopathy, medical noncompliance, valvular insufficiency, history of pleural effusion, history of meningitis, unspecified liver disease. ALLERGIES: No known drug allergies. CODE STATUS: Full code. CURRENT MEDICATIONS: Hydralazine 50 mg t.i.d., Guthrie one tablet q.4 hours p.r.n., Pepcid 20 mg daily, vancomycin 125 mg q.i.d., Imdur 30 mg daily, aspirin 81 mg daily, torsemide 20 mg daily, DuoNebs q.4 hours inhalation, Glucagon and dextrose p.r.n. low blood sugar, Lovenox 30 mg subq at bedtime, carvedilol 25 mg twice a day, Tylenol 650 q.6 hours p.r.n. SOCIAL HISTORY: The patient lives in an independent living apartment by herself. She had a cane and walker at home, but did not use an assistive device on a daily basis. She reports being independent with all ADLs and IADLs premorbidly, she reported still driving. She denied any previous falls, although recurrent falls are documented in her medical records. [address] [address] HISTORY AND PHYSICAL Name: ERIC HYDE Room #: 503-P [facility] IN M.R.#: [id number] Admission: 03/07/18 Attend Phys: Tan Ellison MD Discharge: Date of : 57 Report #: [id number] REVIEW OF SYSTEMS: Remainder of her 14-point review of systems negative except as listed in HPI. PHYSICAL EXAMINATION: VITAL SIGNS: BP 135/95, respirations 19, pulse of 88, temperature 98.6. She is 100% O2 sat on 2 liters per nasal cannula. GENERAL: She is awake, alert. She is oriented to person, place and situation; however, she does have significant confusion with recall of past medical events. She is in general a poor historian and has poor short term memory HEENT: Head is normocephalic. Eyes: EOMs are intact. No icterus. ENT: No sinus tenderness. CHEST: Lungs are diminished in the bases. No significant crackles or wheeze. CARDIAC: S1, S2, regular rhythm and rate. ABDOMEN: Bowel sounds are positive. She has no tenderness to palpation; however, she is distended and slightly firm to touch. GENITOURINARY: No CVA tenderness. EXTREMITIES: She has wounds to her right and left ankle with Kerlix. They are clean, dry, and intact. She has chronic venous stasis changes to her bilateral lower extremities with some mild edema. She has functional range of motion of her bilateral upper extremities. She does have poor box office clerk strength bilateral. No clonus. Bilateral lower extremity functional range of motion. She has a negative Homans sign. No foot drop. Sit to stand, min to mod assist. She is ambulating 50 feet with a front wheel walker and min assist. Lower body dressing is max assist. Bathe is mod assist. NEUROLOGIC: Moderate comprehension deficits, mild to moderate expression deficits, moderate to severe cognitive deficits, she scored a 13/30 on the MOCA, severe memory deficits. PSYCHIATRIC: Pleasant affect. LABORATORY DATA: From 03/07/2018, sodium 149, potassium 4.8, BUN 53, creatinine 2.3, calcium 8.3, albumin 2.2. Chest x-ray from 03/06/2018, moderate atelectasis or pneumonia in both bases with bilateral small effusions, left greater than the right, overall there is improvement from previous chest x-rays. ASSESSMENT: 1. Hypoxic and metabolic encephalopathy. 2. Critical illness myopathy. 3. Dysphagia. 4. Clostridium difficile colitis. 5. Status post cardiopulmonary arrest. 6. Sbrsf-sd-bwkslyx kidney disease stage 4 with underlying nephrosclerosis. 7. Severe nonischemic cardiomyopathy. 8. Acute hypoxic respiratory failure, resolving. 9. Chronic obstructive pulmonary disease. 10. Hypertension. 11. Protein calorie malnutrition. [facility] [address] [place] [address] HISTORY AND PHYSICAL Name: ERIC HYDE Room #: 503-P [facility] IN ..#: [id number] Admission: 03/07/18 Attend Phys: Tan Ellison MD Discharge: Date of : 57 Report #: [id number] 12. History of medical noncompliance. PLAN: The patient is going to be admitted to acute inpatient rehab today. She will have physical, occupational and speech therapies. Dr. Carrillo will follow for her acute medical issues and we will ask Nephrology to follow for her acute renal issues. We will also have Dr. Mai with Neuropsychology see her. She will have followup lab work in the morning. tour coordinator will continue to follow for her bilateral lower extremity wounds. We will plan for a team conference on Saturday. Please see extensive orders. <ELECTRONICALLY SIGNED> By: DELANEY Vergara 03/11/18 1240 [id number] DELANEY Vergara /nt
[2018-03-07] MEDS ORDERED: COREG25 MG PO (15:28)
[2018-03-07] MEDS ORDERED: IPRAT-ALBUT 0.5-3 ML INH (15:28)
[2018-03-07] MEDS ORDERED: HYDRALAZINE 2525 MG PO (15:29)
[2018-03-07] MEDS ORDERED: ENOXAPARIN30 MG/0.1 SUBQ (15:30)
[2018-03-07] MEDS ORDERED: SKIN TREATMENT225 GM TOP (15:32)
[2018-03-07] MEDS ORDERED: PEPCID20 MG PO (15:33)
[2018-03-07] MEDS ORDERED: IMDUR 30 MG TAB30 M1 PO (15:33)
[2018-03-07] MEDS ORDERED: DEMADEX20 MG PO (15:33)
[2018-03-07] MEDS ORDERED: APAP650 PO (15:33)
[2018-03-07] MEDS ORDERED: CHILDREN'S ASPI81 M1 PO (15:33)
[2018-03-07] MEDS ORDERED: NORCO 5-325 TA1 EACH PO (15:34)
[2018-03-07 17:30] VITALS: BP 170/84
[2018-03-07 20:38] VITALS: BP 150/82
[2018-03-08 05:50] LABS: HEMATOCRIT 36.5 % (37.0-47.0); HEMOGLOBIN 11.2 gm/dL (12.0-15.0); MCH 27.4 pg (26.0-34.0); MCHC 30.6 g/dL (28.0-37.0); MCV 89.4 fL (80.0-100.0); RBC 4.08 mil/uL (4.20-5.00); RDW 17.2 % (10.5-14.5); WBC 4.7 thou/uL (4.0-11.0)
[2018-03-08 05:58] LABS: CALCIUM 8.9 mg/dL (8.5-10.1); CREATININE 2.3 mg/dL (0.6-1.0); POTASSIUM 4.7 mmol/L (3.5-5.1)
[2018-03-08 07:15] VITALS: BP 161/95
[2018-03-08 13:00] VITALS: BP 138/66
[2018-03-08 13:20] VITALS: BP 138/66
[2018-03-08 19:45] VITALS: BP 126/68
[2018-03-09 06:17] LABS: ALBUMIN 2.2 g/dL (3.4-5.0); CALCIUM 8.8 mg/dL (8.5-10.1); CREATININE 2.4 mg/dL (0.6-1.0); PHOSPHORUS 3.4 mg/dL (2.5-4.9); POTASSIUM 4.4 mmol/L (3.5-5.1)
[2018-03-09 10:07] VITALS: BP 122/74
[2018-03-09 19:26] VITALS: BP 139/84
[2018-03-10 06:22] LABS: HEMATOCRIT 31.3 % (37.0-47.0); HEMOGLOBIN 9.9 gm/dL (12.0-15.0); MCH 28.1 pg (26.0-34.0); MCHC 31.7 g/dL (28.0-37.0); MCV 88.7 fL (80.0-100.0); RBC 3.54 mil/uL (4.20-5.00); RDW 17.5 % (10.5-14.5); WBC 6.2 thou/uL (4.0-11.0)
[2018-03-10 06:36] LABS: ALBUMIN 2.2 g/dL (3.4-5.0); CALCIUM 8.8 mg/dL (8.5-10.1); CREATININE 2.3 mg/dL (0.6-1.0); PHOSPHORUS 3.6 mg/dL (2.5-4.9); POTASSIUM 3.8 mmol/L (3.5-5.1)
[2018-03-10 10:59] VITALS: BP 128/77
[2018-03-10 17:42] VITALS: BP 148/62
[2018-03-10 19:45] VITALS: BP 132/68
[2018-03-11 08:17] VITALS: BP 135/69
[2018-03-11 14:39] VITALS: BP 148/85
[2018-03-11 19:55] VITALS: BP 138/79
[2018-03-12 05:45] LABS: HEMATOCRIT 30.2 % (37.0-47.0); HEMOGLOBIN 9.5 gm/dL (12.0-15.0); MCH 27.8 pg (26.0-34.0); MCHC 31.5 g/dL (28.0-37.0); MCV 88.3 fL (80.0-100.0); RBC 3.42 mil/uL (4.20-5.00); RDW 16.9 % (10.5-14.5); WBC 5.6 thou/uL (4.0-11.0)
[2018-03-12 06:05] LABS: ALBUMIN 2.3 g/dL (3.4-5.0); CALCIUM 8.6 mg/dL (8.5-10.1); CREATININE 2.3 mg/dL (0.6-1.0); PHOSPHORUS 3.5 mg/dL (2.5-4.9); POTASSIUM 3.7 mmol/L (3.5-5.1)
[2018-03-12 07:15] VITALS: BP 135/79
[2018-03-12 17:29] VITALS: BP 145/80
[2018-03-12 19:35] VITALS: BP 117/64
[2018-03-13 07:54] VITALS: BP 160/99
[2018-03-13 15:00] VITALS: BP 142/64
[2018-03-13 20:27] VITALS: BP 169/92
[2018-03-14 05:34] LABS: HEMOGLOBIN 9.5 gm/dL (12.0-15.0); MCH 27.3 pg (26.0-34.0); MCHC 30.7 g/dL (28.0-37.0); MCV 88.7 fL (80.0-100.0); RBC 3.49 mil/uL (4.20-5.00); RDW 17.8 % (10.5-14.5); WBC 4.5 thou/uL (4.0-11.0)
[2018-03-14 06:02] LABS: CALCIUM 8.8 mg/dL (8.5-10.1); POTASSIUM 3.5 mmol/L (3.5-5.1)
[2018-03-14 07:46] VITALS: BP 145/84
[2018-03-14 21:30] VITALS: BP 151/69
[2018-03-15 06:04] VITALS: BP 147/89
[2018-03-15 07:38] VITALS: BP 158/90
[2018-03-15 21:05] VITALS: BP 143/93
[2018-03-16 06:35] VITALS: BP 172/108
[2018-03-16 07:00] LABS: ALBUMIN 2.4 g/dL (3.4-5.0); CALCIUM 9.1 mg/dL (8.5-10.1); PHOSPHORUS 3.1 mg/dL (2.5-4.9); POTASSIUM 4.1 mmol/L (3.5-5.1)
[2018-03-16 07:08] VITALS: BP 119/74
[2018-03-16 13:15] VITALS: BP 129/82
[2018-03-16 21:59] VITALS: BP 129/67
[2018-03-17 07:40] VITALS: BP 145/72
[2018-03-17 19:20] VITALS: BP 122/62
[2018-03-18 04:30] LABS: ALBUMIN 2.5 g/dL (3.4-5.0); CALCIUM 8.6 mg/dL (8.5-10.1); CREATININE 1.9 mg/dL (0.6-1.0); HEMATOCRIT 29.8 % (37.0-47.0); HEMOGLOBIN 9.6 gm/dL (12.0-15.0); MCH 28.3 pg (26.0-34.0); MCHC 32.2 g/dL (28.0-37.0); MCV 87.8 fL (80.0-100.0); POTASSIUM 3.9 mmol/L (3.5-5.1); RBC 3.39 mil/uL (4.20-5.00); RDW 17.8 % (10.5-14.5); WBC 4.5 thou/uL (4.0-11.0)
[2018-03-18 06:11] VITALS: BP 132/72
[2018-03-18 07:15] VITALS: BP 142/73
[2018-03-18 17:00] VITALS: BP 147/86
[2018-03-18 20:05] VITALS: BP 132/80
[2018-03-19 05:27] VITALS: BP 148/80
[2018-03-19 07:15] VITALS: BP 133/72
[2018-03-19 14:56] VITALS: BP 150/82
[2018-03-19 15:29] VITALS: BP 150/82
[2018-03-19 20:00] VITALS: BP 157/95
[2018-03-20 09:05] VITALS: BP 142/97
[2018-03-20] MEDS ORDERED: IMDUR 30 MG TAB30 M1 PO (09:45)
[2018-03-20] MEDS ORDERED: IPRAT-ALBUT 0.5-3 ML INH (09:45)
[2018-03-20] MEDS ORDERED: HYDRALAZINE 5050 MG PO (09:45)
[2018-03-20] MEDS ORDERED: TORSEMIDE20 MG PO (09:46)
[2018-03-20] MEDS ORDERED: COREG25 MG PO (09:46)
[2018-03-20] MEDS ORDERED: NORCO 5-325 TA1 EACH PO (09:46)
[2018-03-20 13:53] VITALS: BP 122/66
[2018-03-20 19:47] VITALS: BP 115/63
[2018-03-21 06:37] LABS: ALBUMIN 2.6 g/dL (3.4-5.0); CALCIUM 8.6 mg/dL (8.5-10.1); CREATININE 1.9 mg/dL (0.6-1.0); PHOSPHORUS 4.6 mg/dL (2.5-4.9); POTASSIUM 3.8 mmol/L (3.5-5.1)
[2018-03-21 07:15] VITALS: BP 151/90
[2018-03-21] MEDS ORDERED: VANCOMYCIN125 MG/2.1 PO (12:24)
== END 2018-03-21 12:54 | disposition home health service (06) | DRG 70 ==
PROVIDERS: Hospitalist; Internal Medicine Geriatric Medicine; Internal Medicine Nephrology; Nurse Practitioner Family
DX: G93.41 Metabolic encephalopathy (principal); J96.01 Acute respiratory failure with hypoxia; J69.0 Pneumonitis due to inhalation of food and vomit; I46.9 Cardiac arrest, cause unspecified; I50.23 Acute on chronic systolic (congestive) heart failure; G72.81 Critical illness myopathy; G93.1 Anoxic brain damage, not elsewhere classified; A04.72 Enterocolitis due to Clostridium difficile, not specified as recurrent; N18.4 Chronic kidney disease, stage 4 (severe); I42.9 Cardiomyopathy, unspecified; E46 Unspecified protein-calorie malnutrition; I13.0 Hypertensive heart and chronic kidney disease with heart failure and stage 1 through stage 4 chronic kidney disease, or unspecified chronic kidney disease; I50.22 Chronic systolic (congestive) heart failure; R13.10 Dysphagia, unspecified; J44.9 Chronic obstructive pulmonary disease, unspecified; I50.9 Heart failure, unspecified; R53.81 Other malaise; R13.12 Dysphagia, oropharyngeal phase; Z68.23 Body mass index [BMI] 23.0-23.9, adult; Z91.14 Patient's other noncompliance with medication regimen; Z79.899 Other long term (current) drug therapy
CPT/HCPCS: 10112

== ENCOUNTER → 2018-08-14 | Outpatient (CLI) | payer OTHER ==
[~2018-08-14] MED LIST changes: +APAP650 PO; +CHILDREN'S ASPI81 M1 PO; +ENOXAPARIN30 MG/0.1 SUBQ; +HYDRALAZINE 2525 MG PO; +HYDRALAZINE 5050 MG PO; +IPRAT-ALBUT 0.5-3 ML INH; +NORCO 5-325 TA1 EACH PO; +PEPCID20 MG PO; +SKIN TREATMENT225 GM TOP; +TORSEMIDE20 MG PO; +VANCOMYCIN125 MG/2.1 PO
== END ==
LOC: HYPER 06-23 09:24
DX: L97.812 Non-pressure chronic ulcer of other part of right lower leg with fat layer exposed (principal); L30.9 Dermatitis, unspecified; E43 Unspecified severe protein-calorie malnutrition; I87.2 Venous insufficiency (chronic) (peripheral); I13.0 Hypertensive heart and chronic kidney disease with heart failure and stage 1 through stage 4 chronic kidney disease, or unspecified chronic kidney disease; N18.4 Chronic kidney disease, stage 4 (severe); I50.9 Heart failure, unspecified; I42.9 Cardiomyopathy, unspecified; I25.2 Old myocardial infarction; J44.9 Chronic obstructive pulmonary disease, unspecified; F41.9 Anxiety disorder, unspecified

== ENCOUNTER → 2018-08-26 | Outpatient (CLI) | payer OTHER | LOC: HYPER 08-22 08:10 | DX: L97.812 Non-pressure chronic ulcer of other part of right lower leg with fat layer exposed (principal); I87.2 Venous insufficiency (chronic) (peripheral); L30.9 Dermatitis, unspecified; I13.0 Hypertensive heart and chronic kidney disease with heart failure and stage 1 through stage 4 chronic kidney disease, or unspecified chronic kidney disease; N18.4 Chronic kidney disease, stage 4 (severe); I50.9 Heart failure, unspecified; E43 Unspecified severe protein-calorie malnutrition; I25.2 Old myocardial infarction; I42.9 Cardiomyopathy, unspecified; R60.0 Localized edema; F41.9 Anxiety disorder, unspecified; J44.9 Chronic obstructive pulmonary disease, unspecified; Z91.81 History of falling ==

== ENCOUNTER → 2018-09-09 | Outpatient (CLI) | payer OTHER | LOC: HYPER 09-02 07:13 | DX: L97.822 Non-pressure chronic ulcer of other part of left lower leg with fat layer exposed (principal); I87.2 Venous insufficiency (chronic) (peripheral); L30.9 Dermatitis, unspecified; I13.0 Hypertensive heart and chronic kidney disease with heart failure and stage 1 through stage 4 chronic kidney disease, or unspecified chronic kidney disease; N18.4 Chronic kidney disease, stage 4 (severe); I50.9 Heart failure, unspecified; I42.9 Cardiomyopathy, unspecified; I25.2 Old myocardial infarction; E43 Unspecified severe protein-calorie malnutrition; R60.0 Localized edema; J44.9 Chronic obstructive pulmonary disease, unspecified; F41.9 Anxiety disorder, unspecified; Z91.81 History of falling ==

== ENCOUNTER 2018-10-05 19:41 | Inpatient (IN) | payer OTHER ==
[~2018-10-05] VITALS: Ht 149.9 cm; Wt 45.1 kg
--- NOTE | ~2018-10-05 | HC ---
[facility] [place] [address] CONSULTATION Name: ERIC HYDE Room #: 215-P ADM IN M.R.#: [id number] Admission: 10/05/18 ������������������ Attend Phys: Fransisco Field MD Discharge: ������������������ Date of : 57 Report #: [id number] THIS REPORT FOR: //name// CC: Fransisco Field REASON FOR CONSULTATION: Chronic kidney disease. REASON FOR PRESENTATION: Weakness. HISTORY OF PRESENT ILLNESS: A 63-year-old with terminal cardiomyopathy. She is known to have chronic kidney disease. I have seen her on numerous occasions. Unfortunately, she lacks social support and has very poor social condition. She presented with weakness and was incontinent to stool and urine. She previously has had issues with cardiac arrest. She has a baseline creatinine of around 2.0. When her cousin checked on her social situation in the house, she was found to have very poor home issues that were delineated in the Emergency Room note. Previously, the patient required rehabilitation in the fifth floor. She had been into numerous facilities in the past. Unfortunately, she has terminal cardiomyopathy, which is complicating her overall prognosis. Apparently, she stopped taking care of herself and was found in the above-mentioned situation and was brought to the hospital for further evaluation. MEDICATIONS: 1. Hydralazine. 2. Torsemide. 3. Carvedilol. ALLERGIES: None. PAST MEDICAL HISTORY: 1. Cardiomyopathy. 2. Chronic kidney disease. 3. Poor social support system. 4. Status post cardiac arrest. 5. 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 6. Longstanding hypertension. FAMILY HISTORY: Hypertension. SOCIAL HISTORY: Lives on herself. She is not able to care for herself. REVIEW OF SYSTEMS: GENERAL: Significant for weakness. CARDIOVASCULAR: Denies chest pain or palpitation. PULMONARY: No cough or hemoptysis. GASTROINTESTINAL: Decreased oral intake, nausea, vomiting. GENITOURINARY: Incontinent. [facility] [address] [place] [address] CONSULTATION Name: ERIC HYDE Room #: 215-[facility] IN [facility].#: [id number] Admission: 10/05/18 ������������������ Attend Phys: Fransisco Field MD Discharge: ������������������ Date of : 57 Report #: [id number] PHYSICAL EXAMINATION: GENERAL: Very poor hygiene, cachectic and emaciated. VITAL SIGNS: Blood pressure is 90/55, temperature is 36.3. HEAD AND NECK: Elevated jugular venous pressure. CHEST: No crackles. CARDIOVASCULAR: No rub. ABDOMEN: Soft, nontender. LOWER EXTREMITIES: +2 edema. LABORATORY DATA: Reviewed. Creatinine is at baseline at 2.3. Troponin is mildly elevated. White blood cell count 13.1. ASSESSMENT, IMPRESSION AND PLAN: 1. Chronic kidney disease. 2. Terminal cardiomyopathy. 3. Lack of social support. Unfortunately, this has been a recurrent and persistent problem for this patient. 4. We will resume her diuretics. 5. Palliative care should be pursued. ��������������������������������������������� ���������������������������������������� By: ��������������������������������������������� [id number] Fahad Carlisle MD /fransico
[2018-10-05 19:44] VITALS: BP 155/113
[2018-10-05 20:13] LABS: URINE BLOOD NEGATIVE (Negative); URINE CLARITY CLEAR; URINE COLOR YELLOW; URINE GLUCOSE-RANDOM* NEGATIVE (Negative); URINE KETONES NEGATIVE (Negative); URINE LEUKOCYTES-REFLEX NEGATIVE (Negative); URINE NITRITE-REFLEX NEGATIVE (Negative); URINE PROTEIN (DIPSTICK) 1+ (Negative); URINE SPECIFIC GRAVITY 1.015 (1.005-1.035)
[2018-10-05 20:18] LABS: ICTOTEST (BILI CONFIRMATORY) Negative (Negative); URINE BILIRUBIN NEGATIVE (Negative)
[2018-10-05 20:36] LABS: ABSOLUTE NEUTROPHILS 10.7 thou/uL (1.4-8.2); BASOPHILS 0.3 % (0.0-2.0); EOSINOPHILS 0.2 % (0.0-3.0); HEMATOCRIT 40.1 % (37.0-47.0); HEMOGLOBIN 12.3 gm/dL (12.0-15.0); LYMPHOCYTES 4.3 % (24.0-44.0); MCHC 30.6 g/dL (28.0-37.0); MCV 91.4 fL (80.0-100.0); MONOCYTES 4.1 % (1.0-8.0); PLATELET COUNT 232 thou/uL (150-400); POLYS 91.1 % (36.0-66.0); RBC 4.39 mil/uL (4.20-5.00); RDW 17.2 % (10.5-14.5); WBC 11.8 thou/uL (4.0-11.0)
[2018-10-05 20:38] LABS: CALCIUM 8.8 mg/dL (8.5-10.1); CREATININE 2.7 mg/dL (0.6-1.0); POTASSIUM 3.9 mmol/L (3.5-5.1)
[2018-10-05 20:47] LABS: BACTERIA-REFLEX 1-9 Few /HPF (None Seen); CRYSTALS None Seen /LPF (None Seen); FINE GRANULAR CASTS 4-10 Moderate /LPF (None Seen); HYALINE CASTS 4-10 Moderate /LPF (None Seen); MUCUS 4-6 Moderate strn/LPF (None Seen); SQUAMOUS 0-3 Few /LPF (0-3); URINE RBC None Seen /HPF (0-2); URINE WBC-REFLEX 0-5 Rare /HPF (0-5)
[2018-10-05 20:48] LABS: WBC CLUMPS Occasional (None Seen)
[2018-10-05 20:50] LABS: MAGNESIUM 2.8 mg/dL (1.8-2.4); TOTAL BILIRUBIN 1.3 mg/dL (<0.1-1.0); TOTAL PROTEIN 7.5 g/dL (6.4-8.2); TROPONIN-I 0.4 ng/mL (<0.06)
[2018-10-05 21:15] LABS: ANISOCYTOSIS 1+; LARGE PLATELETS OCCASIONAL
[2018-10-05 22:19] VITALS: BP 156/112
[2018-10-05 22:25] VITALS: BP 159/112
[2018-10-06] VITALS: BP 149/95
[2018-10-06 04:41] VITALS: BP 135/90
--- NOTE | 2018-10-06 05:15 | NUR ---
PT WAS AN ER ADMIT TO THE FLOOR. PT IS ALERT AND ORIENTED WITH NO SIGN OF DISTRESS NOTED IN PT. NO FAMILY AT BEDSIDE. ADMISSION ASSESSMENT AND EDUCATION DONE. PT IS STABLE. NO SIGN OF DISTRESS NOTED, SCHEDULED MEDS ADMINISTERED TO PT. NO FAMILY BEDSIDE. PT IS A WOUND TO RIGHT LEG, PICTURES TAKEN. DENIES ANY FURTHER NEEDS AT THIS TIME.
[2018-10-06 08:53] VITALS: BP 156/115
[2018-10-06 10:16] LABS: CALCIUM 8.1 mg/dL (8.5-10.1); CREATININE 2.4 mg/dL (0.6-1.0)
--- NOTE | 2018-10-06 11:21 | NUR ---
Assumed pt care at 7am.Pt in bed resting,alert and oriented x4.Assessment completed.vss.Breakfast given with am meds.Gauze drsg applied to rt lower leg ulcer.Dr Carrillo here and order noted.Wound care will be notified about the wound on pt rt leg.No c/o of soa or discomfort.Bed alarm in use for safety. Will continue to monitor.
[2018-10-06 12:35] VITALS: BP 151/115
[2018-10-06 16:40] VITALS: BP 94/57
--- NOTE | 2018-10-06 18:03 | EKG ---
[address] [place] [address] ELECTROCARDIOGRAM REPORT Name: MARY ELLENERIC DEVI Room #: 215-P ADM IN M.R.#: [id number] ������������������ Admission: 10/05/18 ������������������ Attend Phys: Fransisco Field MD Discharge: ������������������ Date of : 57 Report #: [id number] ����������������������������������������������������������������� [id number] THIS REPORT FOR: //name// [facility] ED Test Date: 2018-10-05 Test Time: 20:44:01 Pat Name: ERIC HYDE Department: Room: [facility] Gender: F Human Service Coordinator: mercy : 1955 Requested By: Meño Deleon Order Number: [id number] MD: James Bautista Measurements Intervals [place] Rate: 108 P: 57 DC: 161 QRS: 66 QRSD: 106 T: 29 QT: 365 QTc: 490 Interpretive Statements Sinus tachycardia Left atrial enlargement Borderline low voltage, extremity leads Left ventricular hypertrophy Electronically Signed On 10-06-2018 18:02:48 CDT by James Bautista [email or web address] ��������������������������������������������� <ELECTRONICALLY SIGNED> ���������������������������������������� By: James Bautista MD ��������������������������������������������� 10/06/181801 43 43 MD DOUGLAS Mohamud
[2018-10-06 19:36] VITALS: BP 94/65
[2018-10-07 04:16] LABS: CALCIUM 8.1 mg/dL (8.5-10.1); CREATININE 2.3 mg/dL (0.6-1.0); POTASSIUM 3.9 mmol/L (3.5-5.1)
[2018-10-07 04:41] LABS: HEMOGLOBIN 11.3 gm/dL (12.0-15.0); MCHC 30.6 g/dL (28.0-37.0); MCV 91.5 fL (80.0-100.0); RBC 4.04 mil/uL (4.20-5.00); RDW 17.8 % (10.5-14.5); WBC 13.1 thou/uL (4.0-11.0)
[2018-10-07 04:58] VITALS: BP 90/55
--- NOTE | 2018-10-07 08:29 | NUR ---
ASSESSMENTS CHARTED. C/O PAIN IN LOWER LEGS, PAIN MEDS GIVEN CHARTED. PLAN OF CARE TO CONTINUE DIURESING AND STRENGTHING.
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
[2018-10-07 11:13] VITALS: BP 94/54
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
--- NOTE | 2018-10-07 13:29 | NUR ---
WOUND CONSULT: PT. WAS SEEN TODAY BY DR. ORTEZ AND MYSELF. PT. IS WELL KNOWN TO THE WOUND CARE TEAM. PT. HAS A CHRONIC ULCERATION TO HER RIGHT LATERAL LEG. WOUND BED IS 100% COVERED IN FIBROUS SLOUGH AT THIS TIME AND ODOR IS PRESENT. DR. ORTEZ PLANS TO COMPLETE A BEDSIDE DEBRIDEMENT OF WOUND TOMORROW. PT. IS AGREEABLE TO THIS. RECOMMENDATIONS: SILVADENE/MORPHINE CREAM, XEROFORM, ABD, KERLIX, TAPE, BID PT. AND STAFF NURSE WERE INSTRUCTED ON PLAN OF CARE.
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
--- NOTE | 2018-10-07 13:44 | NUR ---
ASSUMED CARE AT 0700, SHIFT ASSESSMENT DONE, MEDS GIVEN, VSS. DENIES ESE
--- NOTE | 2018-10-07 13:46 | NUR ---
ASSUMED CARE AT 0700, SHIFT ASSESSMENT DONE, MEDS GIVEN, VSS. DENIES ANY PAIN, [place], VOMITING. HAD TWO EPISODES OF INCONTINENCE THIS AM. AWAITING FOR A URINE SAMPLE. PT AND OT ORDERED. RECEIVING IV ANTIBIOTICS. WILL CONTINUE TO ASSESS AND ASSIST WITH ADLs NEEDED.
[2018-10-07 15:34] VITALS: BP 107/70
--- NOTE | 2018-10-07 16:07 | NUR ---
FAXED CLINICAL UPDATE TO [facility] SPOKE WITH [facility] IN ADM SHE RECEIVED REFERRAL DCP WILL FAX PT/OT NOTES ONCE AVAILABLE. DCP TO FOLLOW.
[2018-10-07 16:10] VITALS: BP 107/70
[2018-10-07 19:36] VITALS: BP 103/71
--- NOTE | 2018-10-08 02:41 | NUR ---
ASSUMED PT CARE AT 1900. PT A/O TO SELF, CONFUSED AND FORGETFUL. PT 0N 2L O2 FOR COMFORT. OCCASIONALLY DYSPNEIC. PT HOWEVER OCCASIONALLY TAKES O2 OFF. ADJUSTS O2 DURING HOURLY ROUNDS.PT RESTED WELL THROUGH THE NIGHT. DRESSING CHANGE COMPLETED. WILL CONTINUE TO MONITOR FOR REST OF NIGHT.
[2018-10-08 05:02] VITALS: BP 132/89
[2018-10-08 07:33] VITALS: BP 123/78
--- NOTE | 2018-10-08 10:51 | NUR ---
rabia has referral and inquiring if in network with insurance.
[2018-10-08 11:01] VITALS: BP 84/55
--- NOTE | 2018-10-08 14:43 | NUR ---
WOUND CARE FOLLOW UP; ROUNDING TODAY WITH PARDEEP SENIOR CONSULTANT AND RADHA RO RN. THE INSURANCE ACCOUNT REPRESENTATIVE NOTIFIED US OF THE LEFT LEG IS DRAINING AND PAINFUL. AN ABCESS WAS IDENTIFED AND A I&d WAS DONE AT THE BEDSIDE. LIDOCAINE 2% WITH EPI WAS USED. MUTIPLE TUNNELS WERE IDENTIFIED, DRAINED AND CLEANED WITH NS. RECOMMENDATION; PACK WITH AQUACEL CUT IN A ROPE, PACKED INTO THE WOUNDS, APPLY SILVADINE MORPHINE CREAM TO WOUND COVER WITH XEROFORM , KERLIX AND SECURE WITH SETH. BILATERALLY DISCUSSED WITH RN
[2018-10-08 14:58] VITALS: BP 110/78
--- NOTE | 2018-10-08 20:16 | NUR ---
ASSUMED CARE AT 0700, SHIFT ASSESSMENT DONE, MEDS GIVEN, VSS. REPORTED PAIN, PRN PAIN MEDS GIVEN. WOUND CARE TO LEFT AND RIGHT LOWER EXTREMITY PERFORMED, CULTURE WAS SENT OUT TO LAB. BP WAS LOW THIS AFTERNOON, DR WHITE NOTIFIED, CHANGE IN MEDICATION ORDER NOTED. WILL CONTINUE TO ASSESS AND ASSIST WITH ADLs NEEDED.
[2018-10-09 04:25] LABS: HEMATOCRIT 34.6 % (37.0-47.0); HEMOGLOBIN 10.9 gm/dL (12.0-15.0); MCH 28.4 pg (26.0-34.0); MCHC 31.5 g/dL (28.0-37.0); MCV 90.1 fL (80.0-100.0); RBC 3.84 mil/uL (4.20-5.00); RDW 17.5 % (10.5-14.5); WBC 8.7 thou/uL (4.0-11.0)
[2018-10-09 04:35] LABS: ALBUMIN 1.7 g/dL (3.4-5.0); CALCIUM 8.2 mg/dL (8.5-10.1); CREATININE 2.2 mg/dL (0.6-1.0); PHOSPHORUS 1.9 mg/dL (2.5-4.9); POTASSIUM 3.7 mmol/L (3.5-5.1)
[2018-10-09 04:42] VITALS: BP 128/76
--- NOTE | 2018-10-09 04:57 | NUR ---
ASSUMED PT CARE AT 1900. PT ORIENTED TO SELF, CONFUSED, FORGETFUL. VITAL SIGNS STABLE, 2200 HYDRALAZINE NOT GIVEN, DID NOT MEET PARAMETERS. PT VITALS STABLE, SBP IN 110'S. HOURLY ROUNDING COMPLETED. BILATERAL DRESSING CHANGES COMPLETED. PT RESTED WELL THROUGH THE NIGHT. FALL PRECAUTIONS MAINTAINED. PROGRESSING TOWARD PLAN OF CARE. WILL CONTINUE TO MONITOR.
[2018-10-09 08:00] VITALS: BP 145/87
--- NOTE | 2018-10-09 08:36 | HC ---
[facility] [place] [place] [address] CONSULTATION Name: ERIC HYDE Room #: 215-P ADM IN M.R.#: [id number] Admission: 10/05/18 ������������������ Attend Phys: Fransisco Field MD Discharge: ������������������ Date of : 57 Report #: [id number] THIS REPORT FOR: //name// CC: Fransisco Field DATE OF SERVICE: 10/07/2018 WOUND CARE CONSULTATION PERSONAL PHYSICIAN: Dr. Mcarthur. CHIEF COMPLAINT: Right lower extremity wound. HISTORY OF PRESENT ILLNESS: This is a 63-year-old black female who has a history of chronic ulceration on the right lower extremity, who is readmitted to the hospital for shortness of breath. We have been asked to see this patient for continued care of this chronic ulceration in the right lower extremity. When asked if the patient had any recent arterial studies performed, she says she does not believe she has and I cannot find any in the old records. The patient is unclear of actually what kind of wound care she has been doing to her extremities if any. The patient is somewhat confused at this time. The patient states the ulcer has been there for several weeks if not months. PAST MEDICAL HISTORY: Chronic kidney disease stage 4, history of cardiomyopathy, hypertensive heart disease, liver disease and chronic ulceration of her lower extremities as well as chronic swelling in her lower extremities consistent with venous insufficiency. CURRENT MEDICATIONS: Multiple, I reviewed the patient's medication list. DRUG ALLERGIES: None. FAMILY HISTORY: Not pertinent to current medical condition. REVIEW OF SYSTEMS: Somewhat unobtainable at this time because of the patient's confused state. PHYSICAL EXAMINATION: VITAL SIGNS: Stable. The patient is afebrile. GENERAL: This is an alert and oriented x 2, person and place, but not time, elderly black female who appears much older than her stated age. HEENT: Normocephalic, atraumatic. Mucous membranes are dry. Pupils are round. Sclerae white. NECK: Supple. There is no JVD. LUNGS: Clear. HEART: Tachycardic without murmur. [facility] [address] [place] [address] CONSULTATION Name: MARY ELLENERIC DEVI Room #: 215- ADM IN M.R.#: [id number] Admission: 10/05/18 ������������������ Attend Phys: Fransisco Field MD Discharge: ������������������ Date of : 57 Report #: [id number] ABDOMEN: Soft, otherwise nontender. EXTREMITIES: The patient has 2+ edema bilateral lower extremities. In the right lower extremity, there is a chronic ulceration which is a mix of approximately 10% granulation tissue and 90% yellow stringy slough. There is a small odor associated with serosanguineous drainage, which is mild. Periwound is intact with no significant undermining or tunneling. Distal pulses are 1+. Bilateral heel, feet and toes are all intact. No other associated ulcerations are noted. NEUROLOGIC: Cranial nerves 2-12 grossly intact. Motor and sensory grossly intact. LABORATORY DATA: White count 13.1, hemoglobin 11.3. BUN 84, creatinine 2.3, albumin 2.0. Chest x-ray shows pulmonary edema. WOUND CARE COURSE: I spoke at length with the patient and the wound care team stated at this time will start the patient on morphine and Silvadene cream to the site, cover with Xeroform and ABD. In the next 1-2 days, we will plan on bedside debridement of the ulceration after we obtain arterial Dopplers to assess the arterial flow. We will make sure we maximize the patient's oral protein supplementation for healing. Continue all other current medications that she is on at this time. IMPRESSION: 1. Chronic ulceration, right lateral lower extremity, limited to breakdown of subcutaneous tissue. 2. Venous insufficiency with mild edema. 3. Shortness of breath consistent with congestive heart failure. 4. Protein-calorie malnutrition -- severe, albumin 2.1. 5. Generalized debility. PLAN: Described in length as above. Once the patient is more medically stable, we will utilize physical and occupational therapy for strengthening. We appreciate the ability to consult. We will continue to follow the patient. ��������������������������������������������� <ELECTRONICALLY SIGNED> ���������������������������������������� By: Enmanuel Cross MD ��������������������������������������������� 10/09/18 0836 0757 03 Enmanuel Cross MD /nt
[2018-10-09 12:20] VITALS: BP 135/79
--- NOTE | 2018-10-09 15:58 | NUR ---
Pt off the unit this afternoon for I&D of her wounds. Awaiting feedback from [facility] regarding her benefits and if they are in network. Will follow.
--- NOTE | 2018-10-09 18:02 | NUR ---
ASSESSMENT CHARTED - MEDS PER JUL - PT TO SURGERY THIS AFTERNOON FOR I&D OF BILATERAL LOWER EXTEMITY WOUNDS. ON RETRUN TO UNIT PATIENT AWAKE / CONFUSED, VSS. NO CO'S OF PAIN DRESSING TO LOWER EXTREMITIES C/D/I WITH SETH WRAPS INSITU. FAMILY AT THE BEDSIDE. MELLISSA DIET AND FLUIDS. NO CO'S AT THE PRESENT TIME.
[2018-10-09 20:35] VITALS: BP 119/73
--- NOTE | 2018-10-09 20:58 | HC ---
[facility] [place] [address] CONSULTATION Name: ERIC HYDE Room #: 215-P ADM IN M.R.#: [id number] Admission: 10/05/18 ������������������ Attend Phys: Fransisco Field MD Discharge: ������������������ Date of : 57 Report #: [id number] THIS REPORT FOR: //name// CC: Fransisco Field DATE OF SERVICE: 10/08/2018 INFECTIOUS DISEASES CONSULTATION REASON FOR CONSULTATION: I was asked to evaluate concerning lower extremity wound infection. HISTORY OF PRESENT ILLNESS: The patient was a 63-year-old with known cardiomyopathy, chronic kidney disease and hypertension. She has been very weak and not doing well at home. She had some injury to her right leg when she was crawling along the floor. Later, she had a pressure injury to her left leg. Her history differs throughout the medical record. It is noted that she has chronic venous stasis disease, cardiomyopathy and chronic kidney disease. She has had ulceration to the right leg for quite some time and the left leg seems to be more recent. She came in with more shortness of breath as well. Workup has identified venous stasis disease, with no DVT. Arterial studies were negative. She had an ultrasound, which showed evidence of abscess, although there were soft tissue changes on the left side. Her blood cultures had remained negative. She was treated with ceftriaxone. She has a fair amount of pain involving the lower legs bilaterally. These have been dressed. She has been evaluated by Wound Care and General Surgery. REVIEW OF SYSTEMS: Denies any cough or sputum production. No chest pain. No nausea or vomiting. She has had loose stools. She is incontinent of urine. A 10-point review was otherwise negative. PAST MEDICAL HISTORY: Chronic kidney disease, cardiomyopathy, hypertension, chronic liver disease, ulcerations of her lower extremities, chronic lymphedema and venous stasis disease. ALLERGIES: None. MEDICATIONS: As noted on her MAR, including ceftriaxone. FAMILY HISTORY: Noncontributory. SOCIAL HISTORY: Lives alone and is having difficulty in caring for herself. PHYSICAL EXAMINATION: VITAL SIGNS: She was afebrile, hemodynamically stable in appearance. GENERAL: She was alert, cooperative and pleasant, in no acute distress. [facility] [address] [place] [address] CONSULTATION Name: ERIC HYDE Room #: 215-P [facility] IN M.R.#: [id number] Admission: 10/05/18 ������������������ Attend Phys: Fransisco Field MD Discharge: ������������������ Date of : 57 Report #: [id number] EXTREMITIES: She had 2+ lower extremity edema. There were ulcerations over both pretibial legs. There was more bloody discharge identified from the left side. Pulses were palpable. These wounds were exquisitely tender. No adenopathy in the groin. HEENT: Eyes, without scleral icterus. Mouth without mucositis. LUNGS: Clear. HEART: Regular, without murmur. ABDOMEN: Soft and nontender, with no hepatosplenomegaly or mass. NEUROLOGIC: The patient was alert and cooperative. Mood was normal. Cranial nerves intact. Sensation in the upper and lower extremities was normal. LABORATORY STUDIES: Hemoglobin 11, WBC 13 and platelet count 150,000. Creatinine 2.3. BNP was over 70,000. Chest x-ray with pulmonary edema. Wound cultures are pending. Blood cultures are pending. Arterial studies were negative. Venous studies were negative. IMPRESSION AND PLAN: A 63-year-old with chronic venous stasis disease from congestive heart failure and chronic kidney disease, which appear secondarily infected. She is to undergo further surgical debridement on the left. We will await tissue cultures. So far, we have not identified any drug-resistant organisms in the past. We will plan to continue ceftriaxone pending further studies. Duration of her antibiotics will depend upon surgical findings and her response to therapy. Continue with leg elevation and mild compression. ��������������������������������������������� <ELECTRONICALLY SIGNED> ���������������������������������������� By: Meño Reynolds MD ��������������������������������������������� 10/09/18 2058 [id number] Meño Reynolds MD /nt
[2018-10-09 23:30] VITALS: BP 111/73
[2018-10-10 04:45] VITALS: BP 114/76
--- NOTE | 2018-10-10 05:12 | NUR ---
ASSUMED PT CARE AT 1900. VSS. PT A&0X4. ORIGINAL POST OP DRESSINGS STILL INTACT. PT REMAINS INCONTINENT. SHE COMPLAINED OF PAIN THIS AM, HYDROCODONE GIVEN, PT STATED PAIN RELIEF. PM AND AM HYDRALIZINE NOT GIVEN, PT DID NOT MEET PARAMETER FOR ADMINISTRATION. PT PULLED OUT LEFT AC IV ACCESS, NEW I STARTED ON L HAND. PT IS STABLE, STEPHANIE CONTINUE TO MONITOR.
[2018-10-10 05:32] LABS: ALBUMIN 1.7 g/dL (3.4-5.0); CALCIUM 7.3 mg/dL (8.5-10.1); CREATININE 2.2 mg/dL (0.6-1.0); POTASSIUM 3.7 mmol/L (3.5-5.1)
[2018-10-10 07:21] VITALS: BP 113/75
[2018-10-10 11:26] VITALS: BP 100/69
--- NOTE | 2018-10-10 12:56 | NUR ---
WOUND CARE FOLLOW UP; ROUNDING WITH DR ORTEZ AND PARDEEP CRAB MEAT PROCESSOR. THIS PATIENT HAD A SURGICAL DEBRIDEMENT YESTERDAY. THE LEFT LE WOUND WAS DEBRIDED TO THE FASCIA AND THE FASCIA REMAINS VIABLE AT THIS TIME. THE RIGHT LE WOUND WAS DEBRIDED ALSO DOWN TO BEEFY RED TISSUE. RECOMMENDATIONS; CONTINUE CURRENT DRESSING ORDERS. DISCUSSED WITH ROSALIE
--- NOTE | 2018-10-10 13:41 | NUR ---
WAS NOTIFIED BY [facility] IN ADM, AT LEVELS THAT THEY DON'T TAKE PT'S INSURANCE. FAXED REFERRAL TO [facility] LEFT MSG WITH IAN IN ADM TO REVIEW. FAXED REFERRAL TO [facility] SPOKE WITH VICKI IN ADM. THEY CAN ACCEPT AND WILL SUBMIT FOR AUTH PT. WILL NOT DC OVER WEEKEND. DCP TO F/U WITH FACILITY ON SATURDAY.
[2018-10-10 16:00] VITALS: BP 122/65
--- NOTE | 2018-10-10 16:38 | NUR ---
Pt sleeping this afternoon. Her cousin Sarai was here to visit and indicates she is getting the pt's mail but does not want to go into her apt due to the condition. She reports the pt has been a hoarder for many years. She is in touch with the pt's sister Urszula in [place]. [employer] spoke with Urszula to touch base regarding the pt's dc planning efforts. Urszula indicates that the pt told her she had completed a DPOA document with her on it and she was going to send her a copy. Urszula does not have a copy but will see if Sarai can locate the document. She reports that the family would like to take the pt to stay with them in [place] and notes that the pt has a house down there as well. Rehab options discussed. SNF referral in progress. [facility] and [facility] of indicate that they are out of network. [facility] reports they are in network and the attending could follow her there. They are checking on her snf benefits. [employer] spoke with the pt's ins plan as well and customer services reported pt's SNF benefit to be up to $700 a day for a max of 21 days a year at both an in network or out of network facility. SNF admission does require prior auth at [facility] . Info called to admissions at [facility]. Pt may have medicare part A and has requested admitting to check benefits with the medicare system as well. Nursing reports pt to be confused today. Will followup with all parties on saturday. Should the pt need ltac, [facility] is innetwork and [facility] are in network for acute rehab.
--- NOTE | 2018-10-10 17:06 | PATH ---
[facility] [address] [place] [address] PATHOLOGY RPT PROCEDURE Name: LINDSAY HYDE Room #: 215-P ADM IN M.R.#: [id number] ������������������ Admission: 10/05/18 ������������������ Date of : 57 Discharge: Report #: [id number] Path Case #: [id number] L[facility] Accession Number: [id number] . 01 Material submitted: . leg - LEFT LATERAL LEG TISSUE. Modifiers: left, lateral . 01 Clinical history: . BLE wounds, FRANCISCO, dehydration. . 02 Diagnosis: Left lateral leg tissue, debridement: - Marked acute inflammation associated with abscess formation as well as extensive fibrinoid degeneration. - Overlying squamous epithelium showing reactive changes. . (IUV:mml; 10/10/2018) QLM/10/10/2018 . 02 Electronically signed: . Breanne Sharma MD, Pathologist NPI- [id number] . 01 Gross description: . Received in formalin labeled "Lindsay Hyde, left lateral leg tissue" are multiple irregular portions of dark brown skin and underlying lyle-pink gelatinous soft tissue measuring in aggregate 18.5 x 8.5 x 1.0 cm. Supervisor [employer] sections are submitted in cassette A1. [place]09[place] SYC/SYC . 02 Pathologist provided ICD-10: L08.9, L02.416 . 02 CPT . 269971 Specimen Comment: A courtesy copy of this report has been sent to Specimen Comment: [phone], , . Specimen Comment: Report sent to ,DR MEADE / DR ROY Performed at: [address], [place] [id number] MD Ajay Sánchez MD Phone: [phone] Performed at: [address] [id number] MD Breanne Sharma MD Phone: [phone]
--- NOTE | 2018-10-10 17:09 | NUR ---
assessment as charted - meds as per jul - given hydrocodone for co's of pain in legs with good relief. dressing to leg on r changed by wound care this am. kerlex and bonnie wrap reapplied. pt has been confused today - unabe to tell month/ year/ etc. pt has been sleeping alot this hsift - turns seld in bed - has been continent requesting bed peterson. jane diet and fluids. no co's at the present time.
[2018-10-10 19:22] VITALS: BP 106/73
--- NOTE | 2018-10-10 22:14 | NUR ---
ASSUMED PT CARE AT 1900. ENOXAPARIN ADMINISTERED TO THE PT PT CARE TRANSFERED TO ANOTHER NURSE AT 2200
[2018-10-11 03:51] VITALS: BP 119/79
[2018-10-11 05:55] LABS: ALBUMIN 1.8 g/dL (3.4-5.0); CALCIUM 7.6 mg/dL (8.5-10.1); CREATININE 2.3 mg/dL (0.6-1.0); PHOSPHORUS 2.3 mg/dL (2.5-4.9); POTASSIUM 4.1 mmol/L (3.5-5.1)
[2018-10-11 07:30] VITALS: BP 126/85
--- NOTE | 2018-10-11 08:07 | NUR ---
PATIENT IS ALERT AND ORIENTED. BUT HAS TROUBLE PROCESSING AT TIMES. PATINETS DRESSING WERE CHANGED. PIC WAS TAKEN OF LT LEG BUT NOT RIGHT DUE TO JAMARCUS BEING IN PLACE. PATIENT IS NSR ON TELE. PATIENT IS CONTIENT OF BLADDER BUT NOT BOWEL. PATIENTS PAIN IS TREATED WITH PAIN MEDICATION. PATIENTS LBM WAS TODAY. PATIENT IS RESTING COFMORTABLY IN BED. WCM. PATIENT IS PROGRESSING TO GOALS.
[2018-10-11 11:53] VITALS: BP 131/86
[2018-10-11 15:26] VITALS: BP 123/79
--- NOTE | 2018-10-11 15:52 | NUR ---
VSS REMAINS NSR, LUNGS CLEAR, RA SAT IS 96%, UP TO BSC WITH ASSIST, STEADY AND WEAK ON FEET, REQUIRES MOD ASSIST/ GAIT BELT. DRESSINGS INTACT LOWER LEGS, DRESSSINGS CHANGED TODAY. WILL CONTINUE TO MONITER AND CARE FOR PT PER PLAN OF CARE
[2018-10-11 20:25] VITALS: BP 117/74
[2018-10-12 05:19] VITALS: BP 140/89
--- NOTE | 2018-10-12 06:19 | NUR ---
PT RESTING IN BED. SR ON MONITOR. PT ABLE TO GET TO BSC ASSIST X1. PT REQUIRED DOSE OF PAIN MEDICATION DURING SHIFT.
[2018-10-12 07:34] VITALS: BP 127/85
[2018-10-12 11:49] VITALS: BP 144/85
--- NOTE | 2018-10-12 15:02 | NUR ---
VSS REMAINS NSR. LUNGS CLEAR RA SAT IS 96%. APPETITE GOOD TODAY. UP TO BSC WITH MOD ASSIST AND GAIT BELT, REMAINS WEAK ON FEET. VASCULAR WOUNDS CHANGED TODAY, SEE NURSING DOCUMENTATION. WILL CONTINUE TO MONITER AND CARE FOR PT PER PLAN OF CARE
[2018-10-12 16:03] VITALS: BP 125/77
[2018-10-12 20:00] VITALS: BP 111/63
--- NOTE | 2018-10-13 03:26 | NUR ---
ASSUMED CARE 1899. VSS. ASSESSMENT CHARTED. A&OX3 PT C/O LE PAIN CONTROLED WITH PRN MEDS PER EMAR. BID WOUND CHANGES DONE ON LE SEE WOUND CARE NOTES. X1 ASSIST TO COMMOD. SLEEPING WELL THROUGH OUT NIGHT. WILL CONTINUE TO MONITOR AND WITH POC.
[2018-10-13 04:00] VITALS: BP 132/80
[2018-10-13 08:00] VITALS: BP 132/71
--- NOTE | 2018-10-13 10:37 | NUR ---
[facility] has submitted for auth today.
--- NOTE | 2018-10-13 10:58 | NUR ---
Followup: s/p surgical debridement to wounds. Has been eager to eat, and loves the Ensure supplements. Wts maintaining around 100 lb. Will change nutrition status to low nutrition risk with appropriate interventions in place.
[2018-10-13 12:09] LABS: ALBUMIN 1.8 g/dL (3.4-5.0); CALCIUM 8.4 mg/dL (8.5-10.1); CREATININE 1.8 mg/dL (0.6-1.0); PHOSPHORUS 2.5 mg/dL (2.5-4.9)
[2018-10-13 12:21] VITALS: BP 120/72
[2018-10-13] MEDS ORDERED: NORCO 5-325 TA1 EACH PO (13:30)
[2018-10-13] MEDS ORDERED: HYDRALAZINE 10M10 MG PO (13:30)
[2018-10-13] MEDS ORDERED: CIPRO250 M1 PO (13:35)
--- NOTE | 2018-10-13 14:56 | NUR ---
PT IS ALERT AND ORIENTED WITH SOME CONFUSION AT TIMES. ON ROOM AIR LUNGS ARE CLEAR. SINUS RHYTHM ON THE CARDIAC MONIOR UP TO CHAIR TODAY. FAMILY AT BEDSIDE VISITING. EATING A HEART HEALTHY DIET. VOIDS PER COMMODE WITH ASSIST X1. WOUNDS BILATERAL TO LOWER LEGS CHANGED PER NURSING. NO ISSUES OR CONCERNS NOTED AT THIS TIME. WILL TRANSFER TO SKILLED FACILITY.
--- NOTE | 2018-10-13 16:40 | NUR ---
[facility] HAS CALLED AND INSURANCE NEEDING MORE UPDATED INFORMATION WHICH HAS BEEN SENT TO [employer] TO UPDATE INSURANCE. CONT TO WORK ON AUTH.
[2018-10-13 20:00] VITALS: BP 108/72
[2018-10-14 04:00] VITALS: BP 143/76
--- NOTE | 2018-10-14 05:10 | NUR ---
ASSUMED PT CARE AT 1900. VSS, SYSTOLIC BP LESS THAN 130, HYDRALIZINE NOT GIVEN. PT A&0X3. COMES IN AND OUT OF CONFUSION AT TIMES. RIGO LEGS DRESSING REMAINS CDI. PT COMPLAINED OF PAIN IN BILAT LEGS AND HYDROCODONE WAS GIVEN, SHE SLEPT FOR MOST OF THE NIGHT, NEW IV ACCESS PLACED AND WRAPPED WITH COBAN. PT IS STABLE, IN BED. WILL CONTINUE TO MONITOR PER POC UNTIL D/C
[2018-10-14 08:10] VITALS: BP 136/72
[2018-10-14 10:53] VITALS: BP 120/60
--- NOTE | 2018-10-14 14:47 | NUR ---
WOUND CARE FOLLOW UP; ROUNDING TODAY WITH DR AZUCENA ANTHONY AND RADHA RO BSN RN. BILATERAL LOWER EXTREMITY WOUNDS WERE ASSESSED TODAY. THE RIGHT LE WOUND HAS AN EXTRA CELLULAR MATRIX STAPLED IN THE WOUND BED (WHICH NEED TO BE LEFT IN PLACE FOR 1 WEEK.) THE LEFT LLE WOUND DRESING IS DAKINS DAILY, ABD, SECURE WITH KERLIX. THE DEPH OF THIS WOUND IS 2.0 CM RECOMMENDATIONS; CONT. CURRENT PLAN OF CARE. DISCUSSED WITH RN
[2018-10-14 15:13] VITALS: BP 115/65
--- NOTE | 2018-10-14 15:18 | NUR ---
FAXED WOUND CARE NOTE WITH DEPTH OF WOUND ON LLE FAXED TO INSURANCE CO AND TO J SPOKE WITH VICKI IN ADM SHE WILL CALL [employer] TO SEE IF WE CAN NOW GET AUTH. RECEIVED CONFIRMATION SHEET FROM [employer] DCP TO FOLLOW.
--- NOTE | 2018-10-14 17:11 | NUR ---
at this time still have not rec auth for post acute care.
--- NOTE | 2018-10-14 19:33 | NUR ---
ASSUMED CARE OF PT AT 0700. PT A&OX4, UP WITH MOD ASSIST TO BEDSIDE COMMODE. PT HAS PAIN IN BILAT LEGS DUE TO VASCULAR WOUNDS. WOUND CARE ROUNDED AND CHANGED DRESSINGS. PT PAIN MANAGED WITH MEDICATION AND PT RESTED COMFORTABLY TODAY. PT VITALS WITHIN NORMAL LIMITS AND PT WAS SINUS RHYTHM ON TELEMETRY. RE-REVIEW TELEMETRY INTERFERENCE LETTER WITH PT.
[2018-10-14 19:48] VITALS: BP 122/66
[2018-10-14 20:08] VITALS: BP 107/55
--- NOTE | 2018-10-15 03:57 | NUR ---
ASSESSMENT DOCUMENTED.PT RESTING IN NO ACUTE DISTRESS.A/OX4.VSS.PAIN MEDS GIVEN FOR RIGO LES PAIN W/RELIEF.DRESSINGS REMAINS CDI TO RIGO LES.UP TO BSC WITH ASSIST.PT C/O WEAKNESS.PT/OT ON BOARD.PT MAY DISCHARGE TODAY TO REHAB OR INTERMEDIATE FACILITY.WILL CONT TO MONITOR PER POC.
[2018-10-15 04:48] VITALS: BP 121/81
[2018-10-15 08:07] VITALS: BP 140/82
--- NOTE | 2018-10-15 10:12 | NUR ---
PT DISCHARGING TODAY TO [facility] FAXED DC ORDERS/SUMMARY TO FACILITY SPOKE WITH VICKI IN ADM SHE RECEIVED DC ORDERS AND ARRANGED WC TRANSPORT FOR 1300 TODAY. NOTIFIED PT'S SISTER (ADILENE) OF DC AND TRANSPORT TIME. UNIT NOTIFIED AND CHART COPY PER US. RN TO CALL REPORT TO [phone].
[2018-10-15 11:05] VITALS: BP 94/60
--- NOTE | 2018-10-15 13:32 | NUR ---
assessment as charted - meds as per jul- given tylenol for co's of pain with goof relief and then requested more pain medication post dressing change - given hydrocodone with good relief. dressing to legs completed - pictures taken and placed in the chart. pt up to the BS - ambulated to the bathroom - walked with phys therapy - seen by occ therapy. jane diet and fluids with no co's of nausea. pt transfered via wheelchair van to [facility] this afternoon. report called to [facility] the facility - no co'sat time of d/c. monitor and iv removed prior to discharge.
--- NOTE | 2018-10-15 17:17 | O ---
[facility] [place] [address] OPERATIVE REPORT Name: ERIC HYDE Room #: 215-P [facility] IN M.R.#: [id number] Admission: 10/05/18 ������������������ Attend Phys: Fransisco Field MD Discharge: 10/15/18 ������������������ Date of : 57 Report #: [id number] THIS REPORT FOR: //name// CC: Fransisco Field DATE OF SERVICE: 10/09/2018 PREOPERATIVE DIAGNOSES: Bilateral lower extremity grossly infected and necrotic decubitus wounds. POSTOPERATIVE DIAGNOSES: Bilateral lower extremity grossly infected and necrotic decubitus wounds. PROCEDURES PERFORMED: 1. Excisional debridement of skin, subcutaneous tissue, muscle/fascia of a grossly infected right lower extremity decubitus wound, ultimately measuring 6 x 5 cm in dimension (30 square cm). Preoperative and postoperative wound measurements did not differ substantially as the overall dimensions did not change. 2. Excisional debridement of skin, subcutaneous tissue and muscle/fascia of the grossly infected and necrotic left lower extremity wound ultimately measuring 25 x 8.5 cm in dimension (212.5 square cm). Preoperative wound measurements were 7 x 4 cm in dimension with significant undermining and grossly purulent material throughout subcutaneous tissues. 3. Application of extracellular matrix tissue using 4.5 mL of Interfyl to the right lower extremity decubitus wound. This covered 30 square cm. SURGEON: Nomi Khan M.D. PHLEBOTOMIST: Medical student. ANESTHESIA: General endotracheal anesthesia. ESTIMATED BLOOD LOSS: Minimal (less than 20 mL). COMPLICATIONS: None appreciated. SPECIMENS: 1. Culture swabs to microbiology. 2. All debrided tissue to pathology. INDICATIONS: The patient is a 63-year-old -[place] female with chronic bilateral lower extremity wounds that are grossly infected with purulent drainage, especially on the left lower leg with necrotic tissue overlying. As such, indication was for the above-mentioned procedures today. [address] [address] OPERATIVE REPORT Name: ERIC HYDE Room #: 215-P [facility] IN M.R.#: [id number] Admission: 10/05/18 ������������������ Attend Phys: Fransisco Field MD Discharge: 10/15/18 ������������������ Date of : 57 Report #: [id number] DESCRIPTION OF PROCEDURE: After explaining the risks, benefits and alternatives of the procedure with the patient in detail and obtaining consent, the patient was brought to the operating room and placed supine on the operating room table. After conducting a thorough timeout procedure verifying correct patient and procedure, the patient was given general endotracheal anesthesia. She was given a preoperative dose of antibiotics in line with the SCIP protocol. The patient's legs were prepped and draped in standard surgical sterile fashion circumferentially to the mid thighs. Electrocautery was now used to circumferentially debride all nonviable skin, subcutaneous tissue and muscle/fascia from the entirety of the wounds. Gross purulent drainage was seen and culture swabs were taken and sent to microbiology. Once I had removed all the necrotic nonviable tissue down to healthy tissue throughout, Misonix ultrasonic debridement tool was used to remove all remaining nonviable tissue and biofilm from the entirety of both wounds. The left lateral leg wound was not amenable for extracellular matrix tissue grafting and as such this was dressed with Xeroform gauze, Adaptic, 4 x 4s, ABDs and circumferential Kerlix. The right lateral wound appeared clean enough and as such, I utilized 4.5 mL of Intrafill covered with Adaptic and ABDs in standard fashion. At the end of the procedure, all instrument, needle and sponge counts were correct. The patient tolerated the procedure without incident, was awakened in the operating room, transitioned to the recovery room in stable condition with no apparent complications. ��������������������������������������������� <ELECTRONICALLY SIGNED> ���������������������������������������� By: Nomi Khan MD, FACS ��������������������������������������������� 10/15/18 1717 1433 1458 Nomi Khan MD, FACS /nt
--- NOTE | 2018-10-16 09:41 | D ---
[facility] [place] [address] DISCHARGE SUMMARY Name: ERIC HYDE Room #: 215-P [facility] IN M.R.#: [id number] Admission: 10/05/18 ������������������ Attend Phys: Fransisco Field MD Discharge: 10/15/18 ������������������ Date of : 57 Report #: [id number] THIS REPORT FOR: //name// CC: Fransisco Field FINAL DIAGNOSES: 1. Cardiomyopathy. 2. Twerj-ya-xofzdby kidney disease stage 4. 3. Right lower extremity infected wound. 4. Hypertensive heart disease. 5. Anemia of chronic disease. 6. Severe protein-calorie malnutrition. PROCEDURES: Right lower extremity wound debridement. HOSPITAL COURSE: The patient was admitted from home with weakness and lower extremity edema. She was noted to have mild hayrb-ik-ppenqeb kidney disease. She was followed by the Renal Service as well as Infectious Disease and Wound Care. Home medications were adjusted, with resumption of her diuretic, which she was not consistently taking and antihypertensive treatment. She had surgical debridement of the right lower extremity wound. Empiric antibiotics were ordered until cultures were made available and then she was switched to oral diuretics. She was very weak and debilitated related to her cardiomyopathy, chronic kidney disease stage 4 and her malnutrition. Dietary supplements were added. She was started on physical therapy, was only walk and 25-50 feet. She has no support structure in place at home and was deemed unsuitable to live at home in the current state. She needs continuous wound care, medical management of her renal failure and heart disease along with therapies. PHYSICAL EXAMINATION: GENERAL: On the day of discharge, she was awake and alert, resting in bed. VITAL SIGNS: She had stable vital signs, with blood pressures ranging in the 140s/70s. LUNGS: Clear. HEART: Regular. ABDOMEN: Soft. Normoactive bowel sounds. EXTREMITIES: Showed no edema and the right leg was dressed. DISPOSITION: She will be transferred to [facility] for continued wound care. Renal diet, low sodium. PT, OT, activity as tolerated. Nutritional supplements. I have asked for lab work tomorrow and at 5 days. She had been under the care of the in-house physician. DISCHARGE MEDICATIONS: Her medicines will be hydralazine 10 mg t.i.d., Cipro 250 mg b.i.d. for 5 days, aspirin, Pepcid, Demadex 20 mg b.i.d., DuoNebs p.r.n., Imdur 30 mg, Coreg 25 mg b.i.d. and hydrocodone 5 mg p.r.n. pain. [address] [address] DISCHARGE SUMMARY Name: ERIC HYDE Room #: 215-P [facility] IN M.R.#: [id number] Admission: 10/05/18 ������������������ Attend Phys: Fransisco Field MD Discharge: 10/15/18 ������������������ Date of : 57 Report #: [id number] PROGNOSIS: Overall, prognosis is poor due to her cardiac disease and renal disease. ��������������������������������������������� <ELECTRONICALLY SIGNED> ���������������������������������������� By: Tan Carrillo MD ��������������������������������������������� 10/16/18 0941 1308 1349 Tan Carrillo MD /nt
== END 2018-10-15 13:20 | DRG 570 ==
LOC: ER 19:41 → 2N 22:00 → EROBS 22:00 → 2N 23:28
PROVIDERS: Emergency Medicine; Hospitalist; Internal Medicine Geriatric Medicine; Internal Medicine Nephrology; Surgery; ADMIT Internal Medicine
PROC: 0JBP0ZZ Excision of Left Lower Leg Subcutaneous Tissue and Fascia, Open Approach (ICD-10-PCS; principal; 2018-10-09)
PROC: 0KUS0KZ Supplement Right Lower Leg Muscle with Nonautologous Tissue Substitute, Open Approach (ICD-10-PCS; principal; 2018-10-09)
PROC: 0KBS0ZZ Excision of Right Lower Leg Muscle, Open Approach (ICD-10-PCS; principal; 2018-10-09)
PROC: 0KBT0ZZ Excision of Left Lower Leg Muscle, Open Approach (ICD-10-PCS; principal; 2018-10-09)
DX: L89.899 Pressure ulcer of other site, unspecified stage (principal); E43 Unspecified severe protein-calorie malnutrition; N18.4 Chronic kidney disease, stage 4 (severe); N17.9 Acute kidney failure, unspecified; L02.416 Cutaneous abscess of left lower limb; L03.116 Cellulitis of left lower limb; L03.115 Cellulitis of right lower limb; I13.0 Hypertensive heart and chronic kidney disease with heart failure and stage 1 through stage 4 chronic kidney disease, or unspecified chronic kidney disease; I42.8 Other cardiomyopathies; I50.22 Chronic systolic (congestive) heart failure; I87.2 Venous insufficiency (chronic) (peripheral); I87.8 Other specified disorders of veins; E86.0 Dehydration; D63.8 Anemia in other chronic diseases classified elsewhere; E88.09 Other disorders of plasma-protein metabolism, not elsewhere classified; B95.2 Enterococcus as the cause of diseases classified elsewhere; B96.4 Proteus (mirabilis) (morganii) as the cause of diseases classified elsewhere; B95.61 Methicillin susceptible Staphylococcus aureus infection as the cause of diseases classified elsewhere; B96.20 Unspecified Escherichia coli [E. coli] as the cause of diseases classified elsewhere; Z51.5 Encounter for palliative care; S80.12XA Contusion of left lower leg, initial encounter; V49.40XA Driver injured in collision with unspecified motor vehicles in traffic accident, initial encounter; Z68.20 Body mass index [BMI] 20.0-20.9, adult; Y93.89 Activity, other specified; Y92.89 Other specified places as the place of occurrence of the external cause; Z86.74 Personal history of sudden cardiac arrest; Y99.8 Other external cause status; Z79.82 Long term (current) use of aspirin; Z79.899 Other long term (current) drug therapy; Z82.49 Family history of ischemic heart disease and other diseases of the circulatory system
CPT/HCPCS: 10081; 50010; 50101; 50386; 51412; 57091; 57119; 57120; 57192; 62110; 62900; 70005

== ENCOUNTER → 2018-11-20 | Outpatient (CLI) | payer OTHER ==
[~2018-11-20] MED LIST changes: +CIPRO250 M1 PO; +HYDRALAZINE 10M10 MG PO
== END ==
LOC: HYPER 09-19 08:39
DX: L97.822 Non-pressure chronic ulcer of other part of left lower leg with fat layer exposed (principal); L97.812 Non-pressure chronic ulcer of other part of right lower leg with fat layer exposed; I12.9 Hypertensive chronic kidney disease with stage 1 through stage 4 chronic kidney disease, or unspecified chronic kidney disease; N18.9 Chronic kidney disease, unspecified; I25.2 Old myocardial infarction; I87.2 Venous insufficiency (chronic) (peripheral); L30.9 Dermatitis, unspecified; N18.4 Chronic kidney disease, stage 4 (severe); E43 Unspecified severe protein-calorie malnutrition; I50.9 Heart failure, unspecified; I42.9 Cardiomyopathy, unspecified; R60.0 Localized edema; J44.9 Chronic obstructive pulmonary disease, unspecified; F41.9 Anxiety disorder, unspecified; Z91.81 History of falling

== ENCOUNTER → 2018-12-03 | Outpatient (CLI) | payer OTHER | LOC: HYPER 06:32 | DX: L97.812 Non-pressure chronic ulcer of other part of right lower leg with fat layer exposed (principal); L97.822 Non-pressure chronic ulcer of other part of left lower leg with fat layer exposed; L30.9 Dermatitis, unspecified; E43 Unspecified severe protein-calorie malnutrition; I87.2 Venous insufficiency (chronic) (peripheral); I13.0 Hypertensive heart and chronic kidney disease with heart failure and stage 1 through stage 4 chronic kidney disease, or unspecified chronic kidney disease; N18.4 Chronic kidney disease, stage 4 (severe); I50.9 Heart failure, unspecified; I42.9 Cardiomyopathy, unspecified; I25.2 Old myocardial infarction; R60.0 Localized edema; J44.9 Chronic obstructive pulmonary disease, unspecified; F41.9 Anxiety disorder, unspecified ==

== ENCOUNTER → 2018-12-17 | Outpatient (CLI) | payer OTHER | LOC: HYPER 06:32 | DX: L97.822 Non-pressure chronic ulcer of other part of left lower leg with fat layer exposed (principal); L97.812 Non-pressure chronic ulcer of other part of right lower leg with fat layer exposed; I87.2 Venous insufficiency (chronic) (peripheral); L30.9 Dermatitis, unspecified; I13.0 Hypertensive heart and chronic kidney disease with heart failure and stage 1 through stage 4 chronic kidney disease, or unspecified chronic kidney disease; N18.4 Chronic kidney disease, stage 4 (severe); I50.9 Heart failure, unspecified; I42.9 Cardiomyopathy, unspecified; I25.2 Old myocardial infarction; E43 Unspecified severe protein-calorie malnutrition; J44.9 Chronic obstructive pulmonary disease, unspecified; R60.0 Localized edema; F41.9 Anxiety disorder, unspecified; Z91.81 History of falling ==

== ENCOUNTER → 2018-12-31 | Outpatient (CLI) | payer OTHER | LOC: HYPER 06:57 | DX: L97.822 Non-pressure chronic ulcer of other part of left lower leg with fat layer exposed (principal); L97.812 Non-pressure chronic ulcer of other part of right lower leg with fat layer exposed; I87.2 Venous insufficiency (chronic) (peripheral); I13.0 Hypertensive heart and chronic kidney disease with heart failure and stage 1 through stage 4 chronic kidney disease, or unspecified chronic kidney disease; N18.4 Chronic kidney disease, stage 4 (severe); I50.9 Heart failure, unspecified; E43 Unspecified severe protein-calorie malnutrition; L30.9 Dermatitis, unspecified; I42.9 Cardiomyopathy, unspecified; I25.2 Old myocardial infarction; R60.0 Localized edema; J44.9 Chronic obstructive pulmonary disease, unspecified; F41.9 Anxiety disorder, unspecified; Z91.81 History of falling ==

== ENCOUNTER → 2019-01-21 | Outpatient (CLI) | payer OTHER | LOC: HYPER 06:55 | DX: L97.822 Non-pressure chronic ulcer of other part of left lower leg with fat layer exposed (principal); L97.812 Non-pressure chronic ulcer of other part of right lower leg with fat layer exposed; L30.9 Dermatitis, unspecified; I87.2 Venous insufficiency (chronic) (peripheral); I13.0 Hypertensive heart and chronic kidney disease with heart failure and stage 1 through stage 4 chronic kidney disease, or unspecified chronic kidney disease; N18.4 Chronic kidney disease, stage 4 (severe); I50.9 Heart failure, unspecified; E43 Unspecified severe protein-calorie malnutrition; R60.0 Localized edema; I42.9 Cardiomyopathy, unspecified; I25.2 Old myocardial infarction; J44.9 Chronic obstructive pulmonary disease, unspecified; F41.9 Anxiety disorder, unspecified ==

== ENCOUNTER → 2019-02-10 | Outpatient (CLI) | payer OTHER ==
[~2019-02-10] MED LIST changes: +GABAPENTIN 100100 MG PO; +TYLENOL EXTRA500 MG PO
== END ==
LOC: HYPER 07:21
DX: L97.822 Non-pressure chronic ulcer of other part of left lower leg with fat layer exposed (principal); L97.812 Non-pressure chronic ulcer of other part of right lower leg with fat layer exposed; I87.2 Venous insufficiency (chronic) (peripheral); L30.9 Dermatitis, unspecified; I13.0 Hypertensive heart and chronic kidney disease with heart failure and stage 1 through stage 4 chronic kidney disease, or unspecified chronic kidney disease; N18.4 Chronic kidney disease, stage 4 (severe); E43 Unspecified severe protein-calorie malnutrition; I50.9 Heart failure, unspecified; I42.9 Cardiomyopathy, unspecified; I25.2 Old myocardial infarction; R60.0 Localized edema; J44.9 Chronic obstructive pulmonary disease, unspecified; F41.9 Anxiety disorder, unspecified; Z91.81 History of falling

== ENCOUNTER 2019-02-11 11:11 | Inpatient (IN) | payer OTHER ==
[~2019-02-11] VITALS: Ht 157.5 cm; Wt 51.0 kg
[~2019-02-11 11:11] MED LIST changes: -GABAPENTIN 100100 MG PO; -TYLENOL EXTRA500 MG PO
[2019-02-12] MEDS ORDERED: TYLENOL EXTRA500 MG PO (12:27)
[2019-02-12 12:57] VITALS: BP 133/93
[2019-02-12 14:24] LABS: HEMATOCRIT 31.6 % (37.0-47.0); HEMOGLOBIN 9.6 gm/dL (12.0-15.0); MCH 28.9 pg (26.0-34.0); MCHC 30.3 g/dL (28.0-37.0); MCV 95.1 fL (80.0-100.0); RBC 3.32 mil/uL (4.20-5.00); RDW 19.5 % (10.5-14.5); WBC 5.4 thou/uL (4.0-11.0)
[2019-02-12 14:39] LABS: ALBUMIN 2.2 g/dL (3.4-5.0); CALCIUM 8.2 mg/dL (8.5-10.1); CREATININE 1.8 mg/dL (0.6-1.0); POTASSIUM 3.8 mmol/L (3.5-5.1); TOTAL BILIRUBIN 0.4 mg/dL (<0.1-1.0); TOTAL PROTEIN 8.1 g/dL (6.4-8.2)
[2019-02-12] MEDS ORDERED: GABAPENTIN 100100 MG PO (15:37)
--- NOTE | 2019-02-12 19:53 | NUR ---
ARRIVED TO FLOOR DIRECT ADMIT AT 1230. PATIENT ALERT AND ORIENTED X 4. ADMISSION HISTORY AND ASSESSMENT COMPLETED. PATIENT RATED PAIN #3 UPON ARRIVAL TO FLOOR. BILATERAL LE'S DRESSED WITH ABD AND SETH WRAP. PICTURES TAKEN OF WOUNDS. MAIN COMPLAINT THIS AFTERNOON SEVERE PAIN TO RIGHT LE. PATIENT TOOK DRESSING OFF STATING I CAN'T TAKE ANYTHING TOUCHING MY LEG. PLACED CALL X [address] WHITE TO REQUEST SOMETHING STRONGER FOR PAIN AND DID NOT RECEIVE RETURN CALL. DR. CHENG ROUNDED AND WROTE ORDERS FOR HYDROCODONE AND HYDROMORPHONE. APPLIED XEROFORM GAUZE TO LEFT LE WOUND, COVERED WITH ABD AND KERLIX AND SETH WRAP. DR. CHENG WANTS LEGS ELEVATED ON PILLOWS. TO START IV ANTIBIOTICS AND PLAN IS TO DEBRIDE WOUNDS NEXT SATURDAY. TOLERATING DIET. PLACED IN CONTACT ISOLATION FOR RECENT HISTORY OF CDIFF. PATIENT STATED HAD DIARRHEA YESTERDAY BUT NONE TODAY. FALL PRECAUTIONS IN PLACE. RESTING QUIETLY AT PRESENT. REPORT GIVEN TO ROSALIE MILES.
[2019-02-12 20:02] VITALS: BP 143/97
[2019-02-13] VITALS (24 sets, daily range): BP systolic 106–184; BP diastolic 63–104
[2019-02-13 04:23] LABS: BE(vivo) -11.9 mmol/L (-2 to +3); HCO3 18.8 mmol/L (22.0-26.0); PO2 82.5 mmHg (80.0-100.0); sO2 90.6 % (92.0-98.0)
[2019-02-13 04:24] LABS: PCO2 67.4 mmHg (35.0-45.0); pH 7.064 (7.360-7.450)
--- NOTE | 2019-02-13 05:00 | NUR ---
BID ANALYST ACTIVATED FOR SNORING LIKE RESPIRATIONS. PATIENT MAINTAINING O2 SAT BUT RESPS LABORED WELL. ABG'S DRAWNS WITH CRITICAL RESULTS. PT TRANSFERRED TO ICU AND INTUBATED. SEE RAPID RESPONSE DOCUMENTATION FOR FURTHER INTERVENTIONS AND ORDERS.
--- NOTE | 2019-02-13 05:37 | NUR ---
CALLED DR. CHAIREZ AT 0537. INFORMED ABOUT PT TRANSFER STATUS, CRITICAL LAB VALUES AND PT VITALS SIGNS. NO NEW ORDERS RECIEVED. INFORMED THAT HE WILL SEE PT IN THE AM. WILL CONTINUE TO MONITOR.
--- NOTE | 2019-02-13 05:40 | NUR ---
TRANSFER NOTE: Pt transferred from [facility] after rapid response called for respiratory distress; pt had sonorous respirations, ABG showed pH of 7.0 with pCO2 > 60. Pt brought to ICU room 244 at 0430 and intubated by ED physician on arrival using Etomidate 20 mg and 7.5 ET tube. OG placed immediately after intubation. Both tubes had placement confirmed by x-ray. ET tube at 22 cm at the lip; OG at 66 cm at the lip. Vent settings Tv 450, FiO2 60%, AC 16, peep 5. FiO2 decreased to 40% after repeat ABG. Abdomen very distended, firm prior on arrival; now slightly better after OG to LIS. Propofol ordered for sedation; pt in soft wrist restraints bilaterally to prevent self extubation. Monson placed, urine output clear yellow, adequate output. Monitor sinus tach, rate 110-120.
[2019-02-13 05:42] LABS: BE(vivo) -9.4 mmol/L (-2 to +3); HCO3 17.3 mmol/L (22.0-26.0); PCO2 41.2 mmHg (35.0-45.0); PO2 202.2 mmHg (80.0-100.0); sO2 99.2 % (92.0-98.0)
[2019-02-13 05:43] LABS: pH 7.242 (7.360-7.450)
--- NOTE | 2019-02-13 07:34 | NUR ---
ASSUMED CARE AROUND 1899. WHEN RECEVIED PT WAS AXOX3 WITH AGITAION AND EXTREME PAIN TO BLE. R CALF DRESSING HAS TAKEN DOWN BY PT. REEDUCATED ABOUT IMPORTANCE OF DRESSING AND REDRESSED THE LEG. AROUND 99. RECEIVED A REPORTED THAT PT TAKEN TAKEN IV OUT. REINSERTED 22G TO RFA. TOLERATED WELL. ADMINISTERED DOSE OF PAIN MEDICATION D/T PT C/O SEVERE PAIN. AROUND 329, NOTICED PT HAS ABNORMAL BREATHING. IT SOUNDED LIKE SNORING/SNORTING. NO WHEEZING,CRACKELS,COARSESSS. PAGED RT AND TRIM OPERATOR TO OBTAIN ASSIST FOR FURTHER EVALUTION. PAGED SEVERAL TIMES, UNSUCCESSFUL. HAD TO CALL AREA SAFETY MANAGER ON PT AND NOW PT IS TRANSFERRED TO ICU AND INTUBATED. REPORT GIVEN AT BEDSIDE. FAMILY MEMBER AND UPDATED ON PT'S STATUS AND NEW ROOM NUBER AND UNIT GIVEN TO FAMILY. PLEASE READ AREA SAFETY MANAGER NOTE AFTER CARE WAS TRANSFERRED TO CAMPUS SECURITY OFFICER'S DIRECTION.
[2019-02-13 11:08] LABS: BE(vivo) -7.7 mmol/L (-2 to +3); HCO3 17.8 mmol/L (22.0-26.0); PO2 144.1 mmHg (80.0-100.0); pH 7.311 (7.360-7.450); sO2 98.7 % (92.0-98.0)
[2019-02-13 11:13] LABS: CALCIUM 8.1 mg/dL (8.5-10.1); CREATININE 1.8 mg/dL (0.6-1.0)
--- NOTE | 2019-02-13 11:53 | H ---
[facility] [place] [address] HISTORY AND PHYSICAL Name: ERIC HYDE Room #: 244-P ADM IN M.R.#: [id number] Admission: 02/12/19 Attend Phys: Tan Carrillo MD Discharge: Date of : 57 Report #: [id number] THIS REPORT FOR: //name// CC: Tan Moody Emir DATE OF SERVICE: 02/12/2019 CHIEF COMPLAINT: Leg wounds. HISTORY OF PRESENT ILLNESS: The patient is a 64-year-old female with multiple medical problems who was admitted from home for wound care. Dr. Cross' office contacted me yesterday with concerns about her lower extremity venous stasis wounds. She has been undergoing outpatient wound care, but there was a feeling that she may need some surgical debridement and then consideration of some additional procedures to try to improve the status. She has had off and on wounds on her left leg requiring antibiotics in the past. She was hospitalized in September of this year with a similar episode and, I believe, received IV antibiotics and a short course of long term care and then returned home. PAST MEDICAL HISTORY: Chronic kidney disease stage 4. She has a history of cardiomyopathy, hypertensive heart disease, liver disease, and anemia of chronic disease. PAST SURGICAL HISTORY: Unknown. FAMILY HISTORY: Noncontributory. SOCIAL HISTORY: She lives alone. No chronic alcohol or tobacco use. ALLERGIES: None. MEDICATIONS: Torsemide, Imdur, DuoNeb, hydralazine, aspirin. REVIEW OF SYSTEMS: She denies headache, chest pain, shortness of breath, abdominal pain, nausea, vomiting, diarrhea, constipation, dysuria, or syncope. OBJECTIVE: VITAL SIGNS: Temperature 36.7, pulse 94, respirations 16, blood pressure 193/93, O2 sat 100% on room air. GENERAL: She is awake and alert, in bed, in no distress. HEAD AND NECK: Unremarkable. LUNGS: Clear. HEART: Regular. ABDOMEN: Soft, normoactive bowel sounds. EXTREMITIES: No cyanosis or clubbing. There is 1-2+ lower extremity edema. [facility] [address] [place] [address] HISTORY AND PHYSICAL Name: ERIC HYDE Room #: 244- ADM IN M.R.#: [id number] Admission: 02/12/19 Attend Phys: Tan Carrillo MD Discharge: Date of : 57 Report #: [id number] There are some open excoriated areas on bilateral calves and lateral edges of the lower legs. NEUROLOGIC: Cranial nerves intact. Speech is fluent. Motor strength about 3/5 throughout. ASSESSMENT: 1. Bilateral lower leg wounds. 2. Venous stasis. 3. Chronic kidney disease, stage 4. 4. Cardiomyopathy. 5. Hypertensive heart disease. 6. Anemia of chronic disease. PLAN: I will ask Dr. Cross or Dr. Khan to see her in consultation with consideration of surgical debridement and/or other aggressive procedural treatments to her legs. Otherwise, we will continue home medications and we are awaiting followup lab data. Lovenox for DVT prophylaxis. <ELECTRONICALLY SIGNED> By: Tan Carrillo MD 02/13/19 1153 1428 1504 Tan Carrillo MD /nt
--- NOTE | 2019-02-13 12:13 | NUR ---
WOUND CONSULT; ROUNDING WITH PARDEEP PLANT SPECIALIST AND RADHA BSN. THE LEFT LEG WOUND IS 100% COVERED WITH FIBRINOUS DEBRIS AND THE RIGHT LEG WOUND IS THE SAME. RECOMMENDATIONS; CONTINUE THE CURRENT DRESSINGS WITH XEROFORM,ABD, KERLIX FOR NOW. RN PRESENT
--- NOTE | 2019-02-13 13:10 | NUR ---
PT HAVING CENTRAL LINE PLACED. AWAITING KUB. REPORT GIVEN TO ONCOMING RN.
--- NOTE | 2019-02-13 13:30 | NUR ---
VASCULAR ACCESS CONSULTED FOR CVAD. PT UNABLE TO KEEP HEAD TURNED TO LEFT SO IJ PLACED ON R SIDE.RIJ WIDELY PATENT WITH USG. 25CM 6FR TL JACC POWER CATH INSERTED TO 8CM EXTERNAL. SITE BLEEDING,GAUZE APPLIED. STAT CXR DONE. PT TOLERATED WELL.
[2019-02-13 13:50] LABS: POTASSIUM 3.7 mmol/L (3.5-5.1)
--- NOTE | 2019-02-13 14:13 | NUR ---
CXR TOO DEEP CENTRAL LINE WITHDREW 2 MORE CM AND 2ND STAT CXR ORDERED.
--- NOTE | 2019-02-13 14:37 | NUR ---
CXR CONFIRMS CVAD AT [facility], CENTRAL LINE RELEASED FOR IMMEDIATE USE PER PROTOCOL TO SURESH WIGGINS
--- NOTE | 2019-02-13 14:43 | NUR ---
IV TEAM REPORT RIGHT IJ TL CENTRAL IS OK FOR USE.
[2019-02-14] VITALS (24 sets, daily range): BP systolic 106–137; BP diastolic 63–88
[2019-02-14 05:12] LABS: BE(vivo) -6.7 mmol/L (-2 to +3); HCO3 18.8 mmol/L (22.0-26.0); PCO2 37.8 mmHg (35.0-45.0); PO2 136.1 mmHg (80.0-100.0); sO2 98.5 % (92.0-98.0)
[2019-02-14 05:14] LABS: pH 7.315 (7.360-7.450)
[2019-02-14 05:16] LABS: CALCIUM 7.6 mg/dL (8.5-10.1); CREATININE 1.8 mg/dL (0.6-1.0); HEMATOCRIT 29.4 % (37.0-47.0); HEMOGLOBIN 9.1 gm/dL (12.0-15.0); MCH 29.5 pg (26.0-34.0); MCV 95.2 fL (80.0-100.0); POTASSIUM 3.6 mmol/L (3.5-5.1); RBC 3.09 mil/uL (4.20-5.00); RDW 19.6 % (10.5-14.5); WBC 7.2 thou/uL (4.0-11.0)
--- NOTE | 2019-02-14 07:25 | NUR ---
ASSESSMENTS CHARTED. MEDS CHARTED. PATIENT RESTING IN BED, ON VENTILATOR, WITH OG TUBE. PATI, WOUNDS WERE DRESSED PRIOR TO MY SHIFT BY WOUND CARE. IN RESTRAINTS DURING SHIFT. PLAN OF CARE TO HAVE SURGERY SATURDAY OR SATURDAY TO DEBRED WOUNDS WHEN THE PATIENT IS MORE STABLE. CRITICAL ABG CALLED TO KO, NO NEW ORDERS. FALL PRECAUTIONS IN PLACE. DID NOT SEEM TO BE IN PAIN.
--- NOTE | 2019-02-14 10:29 | NUR ---
0800-Pt was alert, awake. Followed commands appropriately. Propofol gtt is running at 29mcg. LS was coarse. 100% O2 sat w/ Vent. NSR on monitor. BP 120s/80s. TRACEABLE Edema on foot, crescencio. Abd was distended. Monson in place. 0915-This nurse started sedation vacation by turning propofol off. Pt was completely awake and tried to communicate by pointing ET tube. This nurse provided papers and pen. Pt wrote that she wondered when she could be extubated. This nurse explained the process of weaning. Pt c/o pain on her LE, crescencio and requested pain med. 0935-This nurse restarted propofol @15mcg but pt could not be rested. 1025-Propofol was increased to 29mcg again. Morphine 2mg was administered per order
[2019-02-15] VITALS (17 sets, daily range): BP systolic 113–139; BP diastolic 69–85
[2019-02-15 05:13] LABS: HEMATOCRIT 29.3 % (37.0-47.0); HEMOGLOBIN 9.1 gm/dL (12.0-15.0); MCH 29.4 pg (26.0-34.0); MCHC 31.1 g/dL (28.0-37.0); MCV 94.6 fL (80.0-100.0); RBC 3.1 mil/uL (4.20-5.00); RDW 18.9 % (10.5-14.5); WBC 5.3 thou/uL (4.0-11.0)
[2019-02-15 05:19] LABS: CALCIUM 7.4 mg/dL (8.5-10.1); CREATININE 1.5 mg/dL (0.6-1.0); POTASSIUM 3.2 mmol/L (3.5-5.1)
[2019-02-15 10:42] LABS: BE(vivo) -5.9 mmol/L (-2 to +3); HCO3 19.3 mmol/L (22.0-26.0); PCO2 36.5 mmHg (35.0-45.0); PO2 129.2 mmHg (80.0-100.0); sO2 98.4 % (92.0-98.0)
--- NOTE | 2019-02-15 12:15 | HC ---
[facility] [place] [address] CONSULTATION Name: ERIC HYDE Room #: 244-P ADM IN M.R.#: [id number] Admission: 02/12/19 Attend Phys: Tan Carrillo MD Discharge: Date of : 57 Report #: [id number] THIS REPORT FOR: //name// CC: Tan Moody Emir REFERRING PHYSICIAN: Dr. Carrillo. REASON FOR REFERRAL: Acute respiratory failure. HISTORY OF PRESENT ILLNESS: The patient is a 64-year-old -Burmese female who was admitted for ongoing management of leg wounds. She was admitted on the . In the power machine operator hours of the following day, patient became somnolent, unresponsive. She was eventually intubated and transferred to the ICU. Narcotics were given to the patient prior to this. Currently, she is intubated and sedated, but arousable. PAST MEDICAL HISTORY: Notable for severe nonischemic cardiomyopathy, ejection fraction around 20-25%, hypertension, chronic kidney disease, history of pleural effusions, echocardiogram from 2018 showed moderate mitral regurgitation, pulmonary hypertension, chronic diastolic heart failure; chronic kidney disease with a baseline creatinine around 2.6, peptic ulcer disease, history of meningitis, history of positive antinuclear antibody 2014, medical noncompliance with a past history of cardiopulmonary arrest dating back to 2018 in January. PAST SURGICAL HISTORY: Unremarkable. ALLERGIES: None to medications. MEDICATIONS: List reviewed in the MAR. FAMILY HISTORY: Noncontributory. SOCIAL HISTORY: No prior history of tobacco or alcohol use. REVIEW OF SYSTEMS: Deferred as patient is intubated. PHYSICAL EXAMINATION: GENERAL: She is sedated, in no apparent distress. VITAL SIGNS: Temperature is 98 degrees Fahrenheit, pulse is 100, respiratory rate is 20, blood pressure 120/74 mmHg, saturation 100%. HEENT: Normocephalic, atraumatic. The patient is orally intubated. NECK: Supple, without lymphadenopathy or thyromegaly. CHEST: Breath sounds are fair. Few scattered crackles in the bases. No wheezes. CARDIOVASCULAR: Normal S1, S2. No murmurs or gallop. There is no JVD, no [facility] [address] [place] [address] CONSULTATION Name: ERIC HYDE Room #: 244-P [facility] IN .R.#: [id number] Admission: 02/12/19 Attend Phys: Tan Carrillo MD Discharge: Date of : 57 Report #: [id number] carotid bruit. Pulses are 2+/4+ bilaterally. ABDOMEN: Moderately distended, but soft. No masses felt. Bowel sounds are decreased. GENITOURINARY: Deferred. RECTAL: Deferred. EXTREMITIES: There is no edema, cyanosis or clubbing. NEUROLOGIC: Deferred as patient is intubated. LABORATORY DATA: Portable chest x-ray shows cardiomegaly, ET tube at the rogers, ET tube was withdrawn approximately 2 cm. Electrolytes: Sodium 143, potassium 3.7, chloride 111, CO2 of 21, BUN is 44 and creatinine is 1.8. Liver enzymes are mildly abnormal. WBC 5000, hemoglobin 9.6, platelets are normal. Initial arterial blood gas revealed pH 7.06, pCO2 of 67, pO2 of 82 on 2 liters of O2. Following intubation, arterial blood gas revealed pH 7.24, pCO2 of 41, pO2 200 on FiO2 of 60%. IMPRESSION: 1. Acute hypercapnic hypoxic respiratory failure in this 64-year-old -Burmese female who had multiple medical problems. Based on arterial blood gas, patient appeared to be acutely hypoventilating resulting in acute hypercapnic respiratory failure. Chest x-ray is unremarkable. Cardiomegaly is present. 2. Acute hypercapnic hypoxic respiratory failure, stable. 3. Metabolic acidosis due to above events along with chronic kidney disease. 4. Based on creatinine in the past has been on more than 2, currently is 1.8. 5. Severe protein-calorie malnutrition. 6. Severe ischemic cardiomyopathy with ejection fraction as mentioned above. 7. History of recurrent right-sided pleural effusion due to heart failure. 8. Hypertension. 9. Debility and weakness. 10. Medical noncompliance, especially to the renal service. 11. Moderate mitral regurgitation. 12. Mild pulmonary hypertension due to valvular cardiomyopathy along with nonischemic cardiomyopathy. 13. Bilateral lower extremity wounds, venous stasis, to be addressed by wound care along with surgery. RECOMMENDATION: We will continue mechanical ventilation, correct metabolic acidosis, DVT and GI prophylaxis recommended, weaning parameters once medically stable. Thank you for this consultation. <ELECTRONICALLY SIGNED> By: Raphael Bonilla MD 02/15/19 1215 [id number] Raphael Bonilla MD /nt
--- NOTE | 2019-02-15 12:17 | NUR ---
TUBE FEEDING RESTARTED AT 40, IV FLUIDS DISCONTINUED.
--- NOTE | 2019-02-15 17:26 | NUR ---
PATIENT ON LIGHT SEDATION. ALERT AND ABLE TO FOLLOW COMMANDS DURING SEDATION VACATION. SINUS RHYTHM ON JOURNAL ENTRY AUDIT CLERK. ON 40% FIO2, WEANING TRIAL COMPLETED TODAY, PATIENT DID NOT TOLERATE WELL. OG PRESENT, TOLERATING TUBE FEEDING. KRUEGER PATENT AND DRAINING. LOWER LEG DRESSINGS INTACT. PLAN OF CARE DISCUSSED WITH PATIENT AND FAMILY. NO SIGNS OF ACUTE DISTRESS NOTED AT THIS TIME. WILL CONTINUE TO MONITOR.
[2019-02-16] VITALS (21 sets, daily range): BP systolic 109–151; BP diastolic 59–102
[2019-02-16 04:52] LABS: HEMATOCRIT 30.5 % (37.0-47.0); HEMOGLOBIN 9.3 gm/dL (12.0-15.0); MCH 29.2 pg (26.0-34.0); MCHC 30.6 g/dL (28.0-37.0); MCV 95.4 fL (80.0-100.0); RBC 3.2 mil/uL (4.20-5.00); RDW 19.6 % (10.5-14.5); WBC 4.5 thou/uL (4.0-11.0)
--- NOTE | 2019-02-16 05:03 | NUR ---
Pt had some hypoglycemia through the night, and using the prn orders, this consumer loan underwriter was able to get BGL this at approx 0400 to 92. The tube feeding was increased to 50 ml/he, which is her goal rate. There has been no residual, flushes freely infuse, placement has been confirmed. Pt has been restless through the night and became tachycardic/tachypneic, treated with prn med with good results. The bed is in the low/locked position, the siderails are up x 4 and VSS. Will continue to monitor.
[2019-02-16 05:21] LABS: CREATININE 1.4 mg/dL (0.6-1.0); POTASSIUM 3.4 mmol/L (3.5-5.1)
[2019-02-16 05:30] LABS: PCO2 34.6 mmHg (35.0-45.0); PO2 92.5 mmHg (80.0-100.0); pH 7.335 (7.360-7.450); sO2 96.7 % (92.0-98.0)
--- NOTE | 2019-02-16 09:59 | NUR ---
Pt being overfed with current tf formula and rate. Rec change to jevity 1.5 goal of 40ml/hr.
[2019-02-16 10:17] LABS: HCO3 18.1 mmol/L (22.0-26.0); PCO2 34.6 mmHg (35.0-45.0); PO2 87.3 mmHg (80.0-100.0); pH 7.336 (7.360-7.450); sO2 96.2 % (92.0-98.0)
--- NOTE | 2019-02-16 14:54 | NUR ---
met with patient who was extubated today. Admits with LLE wounds. Patient inpatient at [facility] in SEPTEMBER 2018. She dc to [facility] for post acute care. Patient dc home from [facility] to her apt with [facility]. Patient with 2 sisters out of town [facility] and [place]. Sp with cousin Edilia who reports they are not pleased with [facility] care. Patient liked her stay at [facility]. Cousin reports concern with patient resides alone in apt. She has HH care. Cousin reports she is a hoarder in her apt. She does not eat well. She does not cook food that she has rec from family. Edilia takes patient to apts. Both patient and Edilbertomiguel aware possible need for post acute care and interested in [facility]. If dc home plan HH care with [facility]. Patient did not like [facility] care. Casemgt following for dc planning.
--- NOTE | 2019-02-16 16:13 | NUR ---
FAXED REFERRAL TO [facility] WITH [facility]ICKI IN ADM. SHE RECEIVED REFERRAL AND WILL REVIEW DCP WILL FAX THERAPY NOTES ONCE AVAILABLE. ALSO SHE SAID PT'S INSURANCE HAS NOT PAID FOR PT'S LAST STAY OF TODAY. DCP TO FOLLOW.
[2019-02-17] VITALS (13 sets, daily range): BP systolic 143–176; BP diastolic 95–118
[2019-02-17 05:28] LABS: CALCIUM 8.5 mg/dL (8.5-10.1); CREATININE 1.7 mg/dL (0.6-1.0); POTASSIUM 4.6 mmol/L (3.5-5.1)
--- NOTE | 2019-02-17 06:00 | NUR ---
PT HAS SLEPT MOST OF NIGHT awake and alert oriented. bilat leg dressings intact. 1000 cc uo this shift. pt is anxious to have breakfast. lungs cont to have scattered rhonchi bilat. PAGED 3 X ABOUT HEART RATE OF 125 AND COARSE RHONCH. HAS NOT RETURNED CALL. LUNGS DO SOUND BETTER THIS AM. WILL CONT TO MOMITOR. CLOSELY. A VERY DELIGHTFUL LITTLE LADY. .
--- NOTE | 2019-02-17 12:58 | NUR ---
PATIENT HAS BEEN UP TO CHAIR SINCE APPROXIMATELY 08. PT TOLERATING WELL AND ABLE TO COUGH WITHOUT ANY SPUTUM.
--- NOTE | 2019-02-17 14:50 | NUR ---
following for dc planning. clinical info reviewed. pt extubated 02/16/19. call from insurance web marketing manager Aubrie at [phone], [phone] as she follows pt in community. update provided. pt has transfer orders and will go from ICU to 3w today. DC plan: working toward skilled rehab at [facility]. therapy evals pending.
--- NOTE | 2019-02-17 17:25 | NUR ---
Patient transferred to [facility] unit room 364 from ICU. Patient placed on housing assistant property manager and ordered fluids are infusing. Bed alarm on, fall precautions in place. Will continue to monitor.
--- NOTE | 2019-02-18 02:33 | NUR ---
ASSUMED CARE FROM DAY SHIFT PT ALERT ORIENTED X4 RESTING IN BED C/O LOWER LEG PAIN IV FLUIDS INFUSING WELL, UP TO BATHROOM WITH ONE ASSIST HAD SMALL STOOL, KRUEGER WITH CLEAR YELLOW URINE. WHILE PT WAS SLEEPING PT ACCIDENTLY PULL PICC LINE OUT FROM RIGHT JUGLAR CLOT FORM AND BLEEDING HAD STOPPED WHEN FOUND. NO HEMATOMA NOTED AT SITE TIP CENTRAL LINE TIP INTACT. 2 IV PLACED ONE IN RIGHT WRIST AND ONE IN RIGHT FOREARM. WILL CONTINUE TO MONITOR CLOSELY AND REPORT CHANGES OR ABNORMAL FINDINGS. CARDIAC MONTIOR SHOWS NSR ST 111. BED ALARM ON FOR SAFETY.
[2019-02-18 03:34] VITALS: BP 140/100
[2019-02-18 04:42] LABS: CALCIUM 8.7 mg/dL (8.5-10.1); CREATININE 2.4 mg/dL (0.6-1.0); POTASSIUM 4.8 mmol/L (3.5-5.1)
[2019-02-18 08:11] VITALS: BP 165/112
[2019-02-18 11:58] VITALS: BP 155/107
--- NOTE | 2019-02-18 14:08 | NUR ---
PATIENT SEEN BY DR. ANTONIO THIS DATE. TECHNICIAN ANATOMIC PATHOLOGY WILL CONTINUE TO FOLLOW TO ASSESS IF PATIENT MIGHT BE AN APPROPRIATE CANDIDATE FOR ACUTE REHAB. THANK YOU FOR THIS REFERRAL.
--- NOTE | 2019-02-18 14:46 | NUR ---
SW reviewed chart and spoke with nursing and attending physician. Pt was transferred to 3 from ICU. Pt to have BLE debridement tomorrow per surgery. Pt agreeable with post-acute stay. [facility] is unable to accept pt due to pt's insurance not paying pt's last stay. Case discussed with 5N liaison and attending physician. Consult for 5[facility] ordered. SW met with pt at bedside to discuss discharge plan. Pt is agreeable with going to post-acute if needed. SW is following to assist as needed with discharge planning.
[2019-02-18 16:58] VITALS: BP 145/104
--- NOTE | 2019-02-18 20:11 | NUR ---
PATIENT ALERT AND ORIENTED, PLEASANT AND COOPERATIVE WITH POC. WOUND DRESSING AND PICTURES COMPLTETED TODAY. PATIENT SIGNED CONSENT FOR SURGERY AND NPO ORDER FOR TONIGHT. PATIENT CONTINUES HTN AND DR. WHITE AWARE. NOTIFIED NIGHT NURSE OF ELEVATED BP.
[2019-02-18 20:33] VITALS: BP 114/74
[2019-02-19] VITALS (10 sets, daily range): BP systolic 105–158; BP diastolic 67–104
--- NOTE | 2019-02-19 03:52 | NUR ---
patient is alert and oriented. patient is up times one. patient is on room air. patient is pending surgery today to debride. patients pain is controlled with pain medication. patient lbm was today. patient is nsr to sinus tach on tele. patient is has a chase. patient has been npo sense midnight. patient is resting comfortably in bed. wcm. patient is progressing to goals.
[2019-02-19 05:51] LABS: HEMATOCRIT 32.4 % (37.0-47.0); HEMOGLOBIN 10.1 gm/dL (12.0-15.0); MCH 28.9 pg (26.0-34.0); MCHC 31.1 g/dL (28.0-37.0); MCV 92.9 fL (80.0-100.0); RBC 3.49 mil/uL (4.20-5.00); WBC 3.6 thou/uL (4.0-11.0)
[2019-02-19 06:12] LABS: CALCIUM 8.5 mg/dL (8.5-10.1); CREATININE 2.1 mg/dL (0.6-1.0); POTASSIUM 4.5 mmol/L (3.5-5.1)
--- NOTE | 2019-02-19 12:41 | NUR ---
RHIANNON WITH [facility] PROVIDED WITH PATIENT DEMOGRAPHIC FOR MEDICAID APPLICATIONO PROCESS. UNIT SW AWARE. FOLLOWING.
--- NOTE | 2019-02-19 13:20 | NUR ---
DIAZ reviewed chart and spoke with nursing. Pt scheduled to have surgical debridement today. DIAZ discussed case with [facility] vision rehabilitation therapist, who states they are following pt. SW is following to assist as needed with discharge planning.
--- NOTE | 2019-02-19 18:22 | NUR ---
Assumed care approx. 0700 this AM. Patient scheduled for wound debridement today. Patient taken to surgery approx. 1200 and returned at 1617. Report recieved from PACU nurse. Patient rating pain a 6 on a scale of 1-10. PRN tylenol given and PRN IV zofran for nausea. Patient ate about half of dinner and half of her supplement. Post-debridement pictures not taken as surgical dressing is intact. Will pass on to night worker nurse for picture to be taken upon daily dressing change tomorrow! Patient progressing toward plan of care at this time.
[2019-02-20 00:30] VITALS: BP 135/100
[2019-02-20 01:27] LABS: ABSOLUTE NEUTROPHILS 2.4 thou/uL (1.4-8.2); BASOPHILS 0.9 % (0.0-2.0); EOSINOPHILS 0.1 % (0.0-3.0); HEMATOCRIT 33.9 % (37.0-47.0); HEMOGLOBIN 10.3 gm/dL (12.0-15.0); LYMPHOCYTES 23.2 % (24.0-44.0); MCH 28.7 pg (26.0-34.0); MCHC 30.5 g/dL (28.0-37.0); MONOCYTES 2.8 % (1.0-8.0); PLATELET COUNT 316 thou/uL (150-400); RDW 18.8 % (10.5-14.5); WBC 3.3 thou/uL (4.0-11.0)
[2019-02-20 01:43] LABS: APTT 24.5 Seconds (24.5-32.8); FIBRINOGEN 292.4 mg/dL (210-360); INR 1.2; PROTIME 12.1 Seconds (9.3-11.4)
[2019-02-20 04:51] VITALS: BP 141/91
--- NOTE | 2019-02-20 06:13 | NUR ---
PATIENT IS ALERT AND ORIENTED. PATIENT IS SBA. PATIENT HAS A KRUEGER. PATIENT IS SINUS TACH WITH PACS. PATIENTS DRESSING WAS CHANGED TWICE. NURSE HAD TO HOLD PRESSURE TO WOUND TWICE. PROVIDER IS AWARE. PATIENT IS ON ROOM AIR. PATIENTS PAIN IS CONTROLLED WITH PAIN MEDCIATION. PATIENT IS RESTING COMFORTABLY IN BED. WCM. PATIENT IS PROGRESSING TO GOALS.
[2019-02-20 08:13] VITALS: BP 132/83
[2019-02-20 10:17] LABS: CALCIUM 8.5 mg/dL (8.5-10.1); CREATININE 2.1 mg/dL (0.6-1.0); POTASSIUM 4.9 mmol/L (3.5-5.1)
--- NOTE | 2019-02-20 13:57 | NUR ---
DIAZ reviewed chart and spoke with nursing and attending physician. Pt had debridement yesterday. DIAZ discussed with [facility] rehabilitation assistant to determine if they are able to accept pt. Will need insurance authorization for post acute placement. DIAZ contacted wound care to see if any further wound care procedures are needed. DIAZ is following to assist as needed with discharge planning.
--- NOTE | 2019-02-20 14:12 | NUR ---
care of pt assumed this am @ ~0700. pt noted to be awake, watching tv in bed this am. pt w/ a poor appetite for breakfast, encouraged to customize her lunch meal to increase her appetite and calories. pt noted to be incontinent of stool this am after breakfast, she was so very apologetic for the incontinence. pt states she lives at home by herself, but would desire and need help at home upon dc. ivf's dc'd, pt encouraged to increase her po intake. kub taken for n/v this am. pt made aware of chase to be dc'd today. pt looking forward to speaking w/ dr. lew as she thought she was to receive a skin graft yesterday, but only had debridement of ble. rn awaiting dr. lew for take down of post op drsg and photo before complete drsg change today. pt up to chair after breakfast as states she feels better up in chair.
--- NOTE | 2019-02-20 15:11 | O ---
[facility] [place] [address] OPERATIVE REPORT Name: ERIC HYDE Room #: 364-P [facility] IN M.R.#: [id number] Admission: 02/12/19 Attend Phys: Tan Carrillo MD Discharge: Date of : 56 Report #: [id number] THIS REPORT FOR: //name// CC: Tan Moody Emir DATE OF SERVICE: 02/19/2019 PREOPERATIVE DIAGNOSES: 1. Bilateral lower extremity venous stasis ulcerations with infection. 2. Generalized debility. 3. Protein-calorie malnutrition. POSTOPERATIVE DIAGNOSES: 1. Bilateral lower extremity venous stasis ulcerations with infection. 2. Generalized debility. 3. Protein-calorie malnutrition. PROCEDURES PERFORMED: 1. Excisional debridement of skin, subcutaneous tissue, and muscle/fascia of a grossly infected right lower extremity venous stasis ulcerative wound, ultimately measuring 10 x 6.5 cm in dimension (65 square cm). Preoperative wound and postoperative wound measurements did not change substantially. 2. Excisional debridement of skin, subcutaneous tissue, and muscle/fascia of a grossly infected left lower extremity venous stasis ulcerative wound, ultimately measuring 22 x 9 cm in dimension (198 square cm). Preoperative and postoperative wound measurements did not change substantially. 3. Total surface area of the wounds debrided to muscle/fascia equals 263 square cm. 4. Application of extracellular matrix tissue graft to the entire 263 square cm wound bed of the bilateral lower extremities. SURGEON: Nomi Khan M.D. LEAF TINNER: Anna Heart, FA. ANESTHESIA: General endotracheal anesthesia. ESTIMATED BLOOD LOSS: 20 mL. COMPLICATIONS: None appreciated. SPECIMENS: None. INDICATIONS: The patient is a 64-year-old, -Greenlandic female with longstanding history of bilateral lower extremity venous stasis ulcerative [address] [address] OPERATIVE REPORT Name: ERIC HYDE Room #: 364-P [facility] IN M.R.#: [id number] Admission: 02/12/19 Attend Phys: Tan Carrillo MD Discharge: Date of : 56 Report #: [id number] wounds. The patient was recently admitted with cellulitis and infection of the bilateral lower extremity wounds and unfortunately had a code blue event with respiratory failure requiring emergent intubation and ventilatory management. The patient has since become extubated and stabilized thought to be secondary to respiratory depression from over narcotization. The patient's bilateral lower extremity wounds are in need of ongoing wound care and as such, indication was for debridement today. DESCRIPTION OF PROCEDURE: After explaining the risks, benefits, and alternatives of the procedure and obtaining consent, the patient was brought to the operating room, supine on her hospital bed. After conducting a thorough timeout procedure verifying correct patient and procedure, the patient was given general endotracheal anesthesia. Once adequate anesthesia was obtained, she was given a preoperative dose of antibiotics in line with the SCIP protocol as she is already on an inpatient regimen of IV antibiotic therapy. The patient's legs were now circumferentially prepped from toes to thighs in standard surgical sterile fashion. The [employer] ultrasonic debridement tool was now used to debride all nonviable skin, subcutaneous tissue, and muscle/fascia from the entirety of each wound of the bilateral lower extremities. There was gross purulent drainage from tracts into the subcutaneous space, which were opened up with the Misonix debridement, but did not change the overall dimensions of the wound substantially, but rather took it down to the muscle/fascia level. Hemostasis was assured with gentle manual pressure and electrocautery. As this was grossly purulent wound, I did irrigate the wound copiously and I elected to apply extracellular matrix tissue to the wound in hopes of obtaining good wound healing. For the left lower extremity wound, 2 pieces of 8 x 8 PriMatrix Ag meshed grafts were applied to the wound and stapled to the periphery of the wound. A 3-0 Vicryl sutures in interrupted fashion were now placed throughout the innermost portion of the meshed grafts to hold the entire graft in close approximation with the wound bed. For the patient's right lower extremity wound, one single piece of 6 x 6 PriMatrix Ag meshed graft was stapled to the periphery of the wound. I now utilized four 1.5 mL vials of Interfill and placed this into a slurry underneath the meshed grafts of both lower extremities. Each wound was then covered with Adaptic, 4 x 4's, fluffs, and ABD pad and circumferentially wrapped from toes to knees with a Kerlix wrap and an Jose bandage completing the procedure. At the end of the procedure, all instrument, needle, and sponge counts were correct. The patient tolerated the procedure without incident, was awakened in the operating room and transitioned to the recovery room in stable condition with no apparent complications. <ELECTRONICALLY SIGNED> By: Nomi Khan MD, FACS 02/20/19 1511 [id number] Nomi Khan MD, FACS /nt
[2019-02-20 17:23] VITALS: BP 125/83
[2019-02-20 19:30] VITALS: BP 103/62
[2019-02-21 05:00] VITALS: BP 138/86
[2019-02-21 05:05] LABS: HEMATOCRIT 29.9 % (37.0-47.0); HEMOGLOBIN 9.2 gm/dL (12.0-15.0); MCH 28.7 pg (26.0-34.0); MCHC 30.6 g/dL (28.0-37.0); MCV 93.8 fL (80.0-100.0); RBC 3.18 mil/uL (4.20-5.00); RDW 19.2 % (10.5-14.5); WBC 5.4 thou/uL (4.0-11.0)
[2019-02-21 05:25] LABS: CALCIUM 8.7 mg/dL (8.5-10.1); CREATININE 2.1 mg/dL (0.6-1.0); POTASSIUM 4.7 mmol/L (3.5-5.1)
--- NOTE | 2019-02-21 07:17 | NUR ---
PATIENT IS ALERT AND ORIENTED. PATIENT IS SBA. PATIENTS PAIN IS CONTROLLED. PATIENT IS ON ROOM AIR. PATIENT IS PENDING TRANSFER TO REHAB. PATIENT IS RESTING COMFORTABLY IN BED. WCM. PATIENT IS PROGRESSING TO GOALS. DRESSINGS CLEAN, DRY AND INTACT.
[2019-02-21 07:30] VITALS: BP 125/78
[2019-02-21 16:38] VITALS: BP 137/90
--- NOTE | 2019-02-21 18:23 | NUR ---
pt is A&OX3, pt gets up to walk in hallway with small assist, and pt stays in chair for meals, pt is continuing wound care and pain management, pt 's vs are stable, pt has slowly meeting care plan goals.
[2019-02-21 19:30] VITALS: BP 135/98
[2019-02-22 04:07] VITALS: BP 143/89
--- NOTE | 2019-02-22 04:33 | NUR ---
Patient progressing well towards outcome goals. Vital signs stable. Wound dressings dry and intact. High fall risk, calls out for needs but is impatient and will not wait for help. Gait steady with walker. Good pain control with Tylenol.
[2019-02-22 08:07] VITALS: BP 169/92
--- NOTE | 2019-02-22 15:19 | NUR ---
pt's assessment has done, pt is A&OX3, PT is continuing wound care and pain management, pt gets up to chair and to bathroom with walker, pt's vs are stable at this time, pt has slowly meeting care plan goals.
[2019-02-22 16:38] VITALS: BP 151/99
[2019-02-22 19:46] VITALS: BP 148/106
--- NOTE | 2019-02-23 04:24 | NUR ---
Received pt. up in the recliner chair then assisted up to bathroom using walker. Mild lower leg pain and scheduled tylenol given with some relief. She slept fair during the night. IV came out , new one started on right FA. Afebrile. Bilateral lower extremities with dressing dry and intact.Progressing towards care plan goals.
[2019-02-23 04:50] VITALS: BP 141/90
[2019-02-23 05:26] LABS: CALCIUM 8.4 mg/dL (8.5-10.1); CREATININE 1.9 mg/dL (0.6-1.0)
[2019-02-23 07:17] VITALS: BP 165/93
--- NOTE | 2019-02-23 12:30 | NUR ---
ON-GOING ASSESSMENT: REMY SPOKE WITH LIASON FROM WHO STATES THEY HAVE STARTED INSURANCE AUTH AND INSURANCFE IS REQUESTING A NOTE FROM ATTENDING STATING PATIENT IS MEDICALLY STABLE. REMY NOTIFIED ATTENDING. PT IS POSSIBLE DISCHARGE TO PENDING INSURANCE AUTH.
[2019-02-23 14:08] VITALS: BP 134/77
--- NOTE | 2019-02-23 14:19 | NUR ---
PATIENT'S INSURNACE CALLED THIS AM AND REQUESTED UPDATED INFORMATON. INFORMATION SENT PER FAX. AWAITING RESPONSE FROM INSURANCE. WILL NOTIFIY GUEST SERVICES ATTENDANT SOON ANSWER REGARDING REQUEST FOR AUTHORIZATION IS RECEIVED.
--- NOTE | 2019-02-23 15:53 | NUR ---
DP sent referral to [facility] (as a backup in case patient gets denied for 5N). DP asked for VSJ NOT to seek auth yet. DC likely tomorrow.
[2019-02-23 16:09] VITALS: BP 136/69
--- NOTE | 2019-02-23 17:06 | NUR ---
pt is A&OX3, pt is continuing wound care and pain management, pt's vs are stable, wound Dr has checked pt's BLE wounds, no new order at this time, pt is progressing toward care plan goals.
[2019-02-23 19:07] VITALS: BP 141/91
[2019-02-23 23:20] VITALS: BP 138/85
--- NOTE | 2019-02-23 23:20 | NUR ---
Scheduled tylenol given for crescencio lower extremity pain with good relief. Pt. transferred to rm 431 with all her belongings. She requested not to wake up cousin to inform her of room transfer. She stated she will tell her tomorrow.
--- NOTE | 2019-02-24 01:42 | NUR ---
PT TRANSFERRED FROM [facility] TONIGHT @2300 DENIES PAIN IV INTACT IN RT FOEARM SALINE LOCK. GETS ENSURE SUPPLEMENT BID. DRESSING INTACT ON BLE. UP WITH ASSIT X1 WITH WALKER TO THE BATHROOM. FALL PREC IN PLACE AND CALL LIGHT WITHIN REACH WILL CONT TO MONITOR TILL EOS.
[2019-02-24 04:25] VITALS: BP 143/53
[2019-02-24 07:33] VITALS: BP 156/100
--- NOTE | 2019-02-24 08:19 | NUR ---
REMY HAD VM THIS AM FROM INSURANCE STATING THAT THEY HAVE DENIED ACUTE REHAB BUT WILL APPROVE SNF FOR PATIENT. IF PHYSICIAN WANTS TO DO A PEER TO PEER FOR ACUTE REHAB THEY CAN CALL [phone]. INSURANCE WILL APPROVE SNF AND THEY STATE TO HAVE SNF CALL THEM AT [phone] AND THEY WILL GIVE THEM AN AUTH # FOR SNF. REMY CONTACTED [facility] WHERE PT WANTED TO GO TO SNF SHE HAD BEEN BEFORE AND REMY SPOKE WITH VICKI IN ADMISSIONS WHO STATES THEY CANNOT ACCEPT PT DUE TO STATING PATIENTS INSURANCE STILL HAS NOT PAID THEM FOR HER LAST STAY. REMY DISCUSSED THEY COULD CONTACT INSURANCE THEY ALREADY SAID THEY WOULD AUTHORIZING IT BUT SHE STATES HER D.O.N. STATING THEY CANNOT ACCEPT PATIENT BACK. PT WILL NEED TO TO CHOSE ANOTHER SNF. REMY NOTIFIED SW ON UNIT.
--- NOTE | 2019-02-24 09:16 | NUR ---
Followup: pt tolerating diet well 75-100% most meals and likes to drink Ensure supplements. No new wt to assess. DC planning in progress. Change nutrition status to low risk with appropriate nutrition interventions in place
[2019-02-24] MEDS ORDERED: HYDRALAZINE 5050 MG PO (12:46)
[2019-02-24] MEDS ORDERED: CARVEDILOL25 MG PO (12:46)
[2019-02-24] MEDS ORDERED: ACETAMINOPHEN325 M1 PO ×2 (12:47→12:48)
[2019-02-24] MEDS ORDERED: LISINOPRIL20 MG PO (12:47)
[2019-02-24] MEDS ORDERED: TORSEMIDE20 MG PO (12:48)
--- NOTE | 2019-02-24 13:44 | NUR ---
FAXED REFERRAL TO [facility] SPOKE WITH BILLY IN ADM SHE RECEIVED REFERRAL AND WILL REVIEW. FAXED REFERRAL TO [facility] SPOKE WITH IAN IN ADM SHE RECEIVED REFERRAL AND WILL REVIEW. DP TO FOLLOW.
[2019-02-24 16:04] VITALS: BP 131/66
--- NOTE | 2019-02-24 17:22 | NUR ---
INFORMED PT THAT RUTHIE BARBOUR IS NOT IN NETWORK FOR THE INS. PROVIDED HER WITH A LIST OF THE CONTRACTED FACILITIES & SHE IS INTERESTED IN [place] [facility]. ASKED DC GAUGE OPERATOR TO FAX REFERAL TO THEM. PT SAYS SHE IS NOT REALLY KEEN ON KB.
--- NOTE | 2019-02-24 17:45 | NUR ---
FAXED REFERRAL TO [facility] LEFT MSG WITH VERONIQUE ARANGO LIAJOSUE OF REFERRAL AND THAT PT IS READY FOR DC WILL F/U WITH FACILITY IN THE AM. DP TO FOLLOW.
[2019-02-24 20:00] VITALS: BP 146/78
--- NOTE | 2019-02-24 20:00 | NUR ---
ASSESSMENT COMPLETED. PT IN GOOD SPIRITS.PT SITTING IN CHAIR, ASSISTED TO THE BED WITH ASSIST X1. PT REMINDED TO CALL WITH HELP.AFEBRILE. GIVEN SCHEDULED TYLENOL FOR PAIN.
[2019-02-24 22:35] VITALS: BP 138/74
--- NOTE | 2019-02-24 23:39 | NUR ---
POST FALL NOTE: PT ASSITED TO THE BATHROOM. REQUESTED TO HAVE SOME PRIVACY,CONSEQUENTLY FELL ON THE BATHROOM FLOOR AT AROUND 2215HRS. PT FELL ON HER RIGHT SIDE. DID NOT HIT HEAD OR HAVE ANY BLEEDING. PT ASSISTED UP AND WAS ABLE TO WALK BACK TO BED . C/O SORENESS TO BLE. NO NEW PAIN INDICATED. ROM TO BUE AND BLE REMAIN WNL. POST FALL VITALS WNL. SISTER ADILENE NOTIFIED. CRITICAL CARE RN AND DR WHITE NOTIFIED. PT IS NOW IN BED, ALERT AND ORIENTED. FALL PREC IN PLACE, CALL LIGHT WITHIN REACH.
[2019-02-24 23:40] VITALS: BP 124/68
--- NOTE | 2019-02-24 23:40 | NUR ---
POST FALL : 2ND REASS AFTER FALL COMPLETED. PT REMAINS ALERT AND ORIENTED X4. LYING IN BED. DENIES ANY NEW PAIN.OFFERED PAIN MEDS BUT DECLINED.ROM TO BUE AND BLE REMAIN WNL. NEURO CHECKS WNL.VSS COMPLETED AND ALSO WNL.NO NEW INJURIES NOTED.CALL LIGHT WITHIN REACH.
[2019-02-25 03:00] VITALS: BP 138/84
[2019-02-25 05:29] LABS: CALCIUM 8.4 mg/dL (8.5-10.1); CREATININE 1.9 mg/dL (0.6-1.0); POTASSIUM 4.3 mmol/L (3.5-5.1)
[2019-02-25 08:00] VITALS: BP 126/71
--- NOTE | 2019-02-25 15:23 | NUR ---
Anthony of [facility] said they can accept today pending ins auth. They are calling the ins for auth. DC store planner to fax her dc summary and instructions to admissions. Pt updated.
[2019-02-25 17:17] VITALS: BP 146/87
[2019-02-25 21:30] VITALS: BP 142/87
--- NOTE | 2019-02-26 02:24 | NUR ---
ASSUMED CARE OF PT @1900 PT ASSESSED AT START OF SHIFT. PAIN MEDS GIVEN FOR BLE WOUNDS. DRESSING INTACT. UP WITH ASSISTX1 TO BSC. STATED LOOKING FORWARD TO D/C TOMORROW. FALL PREC IN PLACE AND CALL LIGHT WITHIN REACH WILL CONT TO MONITOR TILL EOS.
[2019-02-26 04:30] VITALS: BP 126/89
[2019-02-26 09:49] VITALS: BP 126/87
--- NOTE | 2019-02-26 10:40 | NUR ---
ASSUMED PT CARE AT 0700 AM. PATIENT WAS AWAKE AND STATED SHE HAD SLEPT WELL LAST NIGHT. PATIENT IS A&OX4, CALM, COOPERATIVE, AND PLEASANT. PATIENT USED THE RESTROOM THIS MORNING VOIDING 325 ML WITH USE OF THE BEDSIDE COMMODE. USE OF BEDSIDE COMMODE DECREASES MOISTURE AND HELPS PREVENT IMPAIRED SKIN INTEGRITY. HOURLY ROUNDING HAS BEEN COMPLETED TO ENSURE SAFETY AND PREVENT FALLS AND TO HELP PATIENT GO TO THE RESTROOM. WITH BREAKFAST NUTRITION WAS ENCOURAGED AND THE PRIORITY WAS PLACED ON FINISHING HER SUPPLEMENT. THE PATIENT STATED THAT THE STRAWBERRY FLAVOR IS GOOD, AND SHE WOULD WORK ON IT. PATIENT IS WEARING YELLOW SOCKS, YELLOW ARM BAND, THE BED WAS LEFT IN THE LOWEST POSITION, AND THE CHAIR AND BED ALARM ARE IN USE DEPENDING ON THE PATIENT'S LOCATION. HER ANTIHYPERTENSIVE MEDS WERE ADMINISTERED THIS MORNING TO IMPROVE CIRCULATION. PATIENT IS CURRENTLY SITTING IN HER CHAIR WATCHING TV AND IS RELAXED. WILL CONTINUE TO MONITOR.
--- NOTE | 2019-02-26 11:04 | HC ---
[facility] [place] [address] CONSULTATION Name: ERIC HYDE Room #: 446-P ADM IN M.R.#: [id number] Admission: 02/12/19 Attend Phys: Tan Carrillo MD Discharge: Date of : 56 Report #: [id number] THIS REPORT FOR: //name// CC: Tan Moody Emir DATE OF SERVICE: 02/18/2019 HISTORY OF PRESENT ILLNESS: The patient is a 64-year-old -Honduran female who was admitted for wound care with concern regarding her lower extremity wounds. While here, her course was complicated by respiratory arrest with acute hypercapnic hypoxic respiratory failure. She was intubated, followed by Pulmonary Medicine. She has subsequently been extubated. She has been transferred out of the ICU. She does have venous stasis changes of her lower extremities and Surgery is following. Plan is for debridement that is to take place. Per my review, she is to undergo debridement tomorrow of both lower extremities. She is in the meantime, continuing on IV antibiotics with treatment for bilateral lower extremity cellulitis as well as chronic venous stasis ulcers. We are seeing her in rehabilitation medicine consultation. PAST MEDICAL HISTORY: Includes chronic kidney disease stage 4, nonischemic cardiomyopathy, hypertension, and anemia of chronic disease. MEDICATIONS: Please see the full medication listing. ALLERGIES: No known drug allergies. SOCIAL HISTORY: Lives alone in an apartment. She does have an involved cousin and has supportive neighbors. There are two sisters that live out of state. She is a premorbid furniture walker, used a front-wheeled walker in the community. There are issues with her home situation and per case management notes. Apparently, she is a "hoarder." REVIEW OF SYSTEMS: No current complaints of chest pain, shortness of breath, or abdominal discomfort. PHYSICAL EXAMINATION: GENERAL: A 64-year-old slender -Honduran female in no obvious distress. VITAL SIGNS: Last recorded temperature 97.4, pulse 109, respirations 24, and blood pressure is 165/112, was 140/100 earlier today. NEUROLOGIC: Facies appeared symmetric. She follows basic 1 step commands. EXTREMITIES: Functional range of motion of both upper extremities, strength is grade 4-/5. DTRs are trace to 1. Lower extremities, both legs are wrapped. These are wrappings from the knees distally. She can dorsiflex both of her ankles. Lower extremity strength is probably a grade 4-/5. Transfers sit to stand are mod assist. She was able to hanna 6 steps mod assist[address] [address] CONSULTATION Name: ERIC HYDE Room #: 446-[facility] IN M.R.#: [id number] Admission: 02/12/19 Attend Phys: Tan Carrillo MD Discharge: Date of : 57 Report #: [id number] ASSESSMENT: A 64-year-old -Honduran female with the following problem list: 1. Bilateral lower extremity cellulitis. 2. Acute hypercapnic respiratory failure has subsequently been extubated. 3. Nonischemic cardiomyopathy. 4. Chronic kidney disease. 5. Open wound of the lower leg. Plan is to be debrided tomorrow as per Surgery. PLAN: Note the current plan per case management is working towards skilled rehab at [facility] where she was after a prior hospitalization in September of this year. At this point, we will continue to follow along and see how she does postoperatively regarding her rehab therapy needs. <ELECTRONICALLY SIGNED> By: Tan Ellison MD 02/26/19 1104 [id number] 1732 Tan Ellison MD /nt
--- NOTE | 2019-02-26 16:12 | NUR ---
auth was recieved for pt to dc to [facility] this day. chart copy made orders faxed. [employer] transport set for [id number]. cm called and notified pt's sister carolyn. all are aware and agreeable. no other cm intervention indicated. case closed.
== END 2019-02-26 17:14 | DRG 579 ==
LOC: 4E 11:11 → 4W 02-12 11:50 → 3W 02-12 11:50 → ICU 02-12 11:50 → 4E 02-12 15:52 → ICU 02-13 05:14 → 3W 02-17 17:15 → 4E 02-23 23:30 → 4S 02-25 13:31
PROVIDERS: Internal Medicine Pulmonary Disease; Surgery; ADMIT Internal Medicine Geriatric Medicine
DX: L03.116 Cellulitis of left lower limb (principal); J96.01 Acute respiratory failure with hypoxia; E43 Unspecified severe protein-calorie malnutrition; J96.02 Acute respiratory failure with hypercapnia; N18.4 Chronic kidney disease, stage 4 (severe); I13.0 Hypertensive heart and chronic kidney disease with heart failure and stage 1 through stage 4 chronic kidney disease, or unspecified chronic kidney disease; I50.32 Chronic diastolic (congestive) heart failure; E87.2 Acidosis; L97.829 Non-pressure chronic ulcer of other part of left lower leg with unspecified severity; L97.819 Non-pressure chronic ulcer of other part of right lower leg with unspecified severity; L03.115 Cellulitis of right lower limb; I25.5 Ischemic cardiomyopathy; I34.0 Nonrheumatic mitral (valve) insufficiency; I87.8 Other specified disorders of veins; D63.8 Anemia in other chronic diseases classified elsewhere; I27.20 Pulmonary hypertension, unspecified; Z68.20 Body mass index [BMI] 20.0-20.9, adult; Z87.11 Personal history of peptic ulcer disease; Z86.74 Personal history of sudden cardiac arrest; Z91.14 Patient's other noncompliance with medication regimen
CPT/HCPCS: 10047; 10078; 10080; 10084; 10195; 10779; 10879; 50010; 50101; 51412; 56526; 57091; 57092; 57119; 57120; 57138; 57143; 57192; 62110; 62900; 70005

== ENCOUNTER → 2019-03-05 | Outpatient (CLI) | payer OTHER ==
[~2019-03-05] MED LIST changes: +GABAPENTIN 100100 MG PO; +TYLENOL EXTRA500 MG PO
== END ==
LOC: HYPER 12:07
DX: L97.822 Non-pressure chronic ulcer of other part of left lower leg with fat layer exposed (principal); L97.812 Non-pressure chronic ulcer of other part of right lower leg with fat layer exposed; I87.2 Venous insufficiency (chronic) (peripheral); L30.9 Dermatitis, unspecified; I13.0 Hypertensive heart and chronic kidney disease with heart failure and stage 1 through stage 4 chronic kidney disease, or unspecified chronic kidney disease; N18.4 Chronic kidney disease, stage 4 (severe); I50.9 Heart failure, unspecified; I42.9 Cardiomyopathy, unspecified; I25.2 Old myocardial infarction; E43 Unspecified severe protein-calorie malnutrition; R60.0 Localized edema; J44.9 Chronic obstructive pulmonary disease, unspecified; J96.90 Respiratory failure, unspecified, unspecified whether with hypoxia or hypercapnia; F41.9 Anxiety disorder, unspecified; Z91.81 History of falling

== ENCOUNTER → 2019-03-26 | Outpatient (CLI) | payer OTHER | LOC: HYPER 05:02 | DX: L97.822 Non-pressure chronic ulcer of other part of left lower leg with fat layer exposed (principal); L97.812 Non-pressure chronic ulcer of other part of right lower leg with fat layer exposed; L30.9 Dermatitis, unspecified; I87.2 Venous insufficiency (chronic) (peripheral); I13.0 Hypertensive heart and chronic kidney disease with heart failure and stage 1 through stage 4 chronic kidney disease, or unspecified chronic kidney disease; I50.9 Heart failure, unspecified; N18.4 Chronic kidney disease, stage 4 (severe); E43 Unspecified severe protein-calorie malnutrition; R60.0 Localized edema; I42.9 Cardiomyopathy, unspecified; I25.2 Old myocardial infarction; J44.9 Chronic obstructive pulmonary disease, unspecified; F41.9 Anxiety disorder, unspecified ==

== ENCOUNTER → 2019-04-16 | Outpatient (CLI) | payer OTHER | LOC: HYPER 08:36 | DX: L97.822 Non-pressure chronic ulcer of other part of left lower leg with fat layer exposed (principal); L97.812 Non-pressure chronic ulcer of other part of right lower leg with fat layer exposed; I13.0 Hypertensive heart and chronic kidney disease with heart failure and stage 1 through stage 4 chronic kidney disease, or unspecified chronic kidney disease; N18.9 Chronic kidney disease, unspecified; I50.9 Heart failure, unspecified; I25.2 Old myocardial infarction; I87.2 Venous insufficiency (chronic) (peripheral); L30.9 Dermatitis, unspecified; N18.4 Chronic kidney disease, stage 4 (severe); E43 Unspecified severe protein-calorie malnutrition; I42.9 Cardiomyopathy, unspecified; J44.9 Chronic obstructive pulmonary disease, unspecified; R60.0 Localized edema; F41.9 Anxiety disorder, unspecified; Z91.81 History of falling ==

== ENCOUNTER 2019-04-29 15:45 | Emergency (ER) | payer OTHER ==
[~2019-04-29] VITALS: Ht 149.9 cm; Wt 43.1 kg
[2019-04-29 19:14] LABS: ABSOLUTE NEUTROPHILS 3.5 thou/uL (1.4-8.2); BASOPHILS 1.5 % (0.0-2.0); MCH 27.8 pg (26.0-34.0)
[2019-04-29 19:16] LABS: EOSINOPHILS 5.2 % (0.0-3.0); LYMPHOCYTES 25.8 % (24.0-44.0); MCHC 30.7 g/dL (28.0-37.0); MCV 90.5 fL (80.0-100.0); MONOCYTES 10.6 % (1.0-8.0); PLATELET COUNT 351 thou/uL (150-400); POLYS 56.9 % (36.0-66.0); RDW 21.6 % (10.5-14.5); WBC 6.1 thou/uL (4.0-11.0)
[2019-04-29 19:20] LABS: HEMATOCRIT 19.9 % (37.0-47.0); HEMOGLOBIN 6.1 gm/dL (12.0-15.0)
[2019-04-29 19:22] LABS: CALCIUM 8.1 mg/dL (8.5-10.1); CREATININE 1.5 mg/dL (0.6-1.0); POTASSIUM 3.9 mmol/L (3.5-5.1)
[2019-04-29 20:10] LABS: ANISOCYTOSIS 2+; HYPOCHROMASIA 2+; MICROCYTES 2+
[2019-04-29 20:11] LABS: OVALOCYTES OCCASIONAL
[2019-04-29 21:41] VITALS: BP 120/68
== END 2019-04-29 21:42 | disposition home or self-care (01) ==
LOC: ER 15:45
PROVIDERS: Emergency Medicine
DX: L08.89 Other specified local infections of the skin and subcutaneous tissue (principal); D62 Acute posthemorrhagic anemia; I11.0 Hypertensive heart disease with heart failure; I50.9 Heart failure, unspecified; Z79.82 Long term (current) use of aspirin; Z79.899 Other long term (current) drug therapy

== ENCOUNTER → 2019-05-07 | Outpatient (CLI) | payer OTHER | LOC: HYPER 07:03 | DX: L97.822 Non-pressure chronic ulcer of other part of left lower leg with fat layer exposed (principal); L97.812 Non-pressure chronic ulcer of other part of right lower leg with fat layer exposed; I87.2 Venous insufficiency (chronic) (peripheral); I12.9 Hypertensive chronic kidney disease with stage 1 through stage 4 chronic kidney disease, or unspecified chronic kidney disease; N18.4 Chronic kidney disease, stage 4 (severe); E43 Unspecified severe protein-calorie malnutrition; L84 Corns and callosities; I50.9 Heart failure, unspecified; I42.9 Cardiomyopathy, unspecified; I25.2 Old myocardial infarction; R60.0 Localized edema; F41.9 Anxiety disorder, unspecified; J44.9 Chronic obstructive pulmonary disease, unspecified; Z91.81 History of falling ==

== ENCOUNTER 2019-06-26 14:12 | Inpatient (IN) | payer OTHER ==
[~2019-06-26] VITALS: Ht 149.9 cm; Wt 40.5 kg
--- NOTE | ~2019-06-26 | H ---
[facility] [place] [address] HISTORY AND PHYSICAL Name: ERIC HYDE Room #: 201-P ADM IN M.R.#: [id number] Admission: 06/26/19 Attend Phys: Fransisco Field MD Discharge: Date of : 57 Report #: [id number] THIS REPORT FOR: //name// CC: Fransisco Field DATE OF SERVICE: 06/26/2019 CHIEF COMPLAINT: Weakness and confusion. HISTORY OF PRESENT ILLNESS: The patient is a 64-year-old female with multiple medical problems, was brought to the Emergency Room by EMS after being found undressed on her door step at her apartment by her neighbors. It is unclear how long she had been there or when she had last contact with any family or friends. She was slightly disoriented and could not explain her situation. PAST MEDICAL HISTORY: Nonischemic cardiomyopathy, EF 10%, chronic kidney disease stage 4, history of cirrhosis, history of venous stasis wounds in the lower legs. She has had multiple admissions due to heart failure and hypertensive urgency in the past. She has been in and out of residential facilities. PAST SURGICAL HISTORY: Unknown. FAMILY HISTORY: Noncontributory. SOCIAL HISTORY: She lives alone. No known chronic alcohol or tobacco use. ALLERGIES: None. MEDICATIONS: Hydralazine 50 mg q.i.d., Coreg 25 mg b.i.d., lisinopril 20 mg, Tylenol, torsemide 20 mg, Imdur 30 mg, aspirin 81 mg, vitamins. REVIEW OF SYSTEMS: She denies headache, chest pain, shortness of breath, abdominal pain, nausea, vomiting, diarrhea, constipation, dysuria. OBJECTIVE: VITAL SIGNS: Temperature 36.1, pulse 116, respirations 28, blood pressure 139/97, O2 sat 99% on room air. GENERAL: She is awake and alert, lying in bed, in no distress. HEAD AND NECK: Unremarkable. LUNGS: Clear. HEART: Regular. ABDOMEN: Soft, normoactive bowel sounds. EXTREMITIES: No edema. She has an open excoriated areas on the anterior tibias bilaterally from knee to ankle. No purulent drainage. NEUROLOGIC: Cranial nerves intact. Speech is fluent. She recognizes me. [facility] [address] [place] [address] HISTORY AND PHYSICAL Name: ERIC HYDE Room #: 201-P ADM IN M.R.#: [id number] Admission: 06/26/19 Attend Phys: Fransisco Field MD Discharge: Date of : 57 Report #: [id number] knows she is in the ER at [place]. LABORATORY DATA: Sodium was 155, creatinine 2.3. Troponin was 10. Urinalysis had protein, ketones, blood, nitrite, leukocyte and white blood cells with bacteria. ASSESSMENT: 1. Acute hypernatremia. 2. Urinary tract infection. 3. Non-ST elevation myocardial infarction. 4. Acute on chronic kidney disease stage 4. 5. Anemia of chronic disease. 6. Chronic venous stasis wounds of the lower legs. 7. Nonischemic cardiomyopathy. 8. Hypertension. PLAN: She will be treated medically with fluid resuscitation, IV antibiotics. Her beta navin, aspirin and Lovenox DVT prophylaxis. Wound care and Cardiology will be consulted, but given her multiple comorbidities, I feel at this point she is just medical management in regards to the cardiac issues. By: 1641 1649 Tan Carrillo MD /nt
--- NOTE | ~2019-06-26 | EKG ---
[facility] [place] [address] ELECTROCARDIOGRAM REPORT Name: ERIC HYDE Room #: 201-P ADM IN M.R.#: [id number] Admission: 06/26/19 Attend Phys: Fransisco Field MD Discharge: Date of : 57 Report #: [id number] THIS REPORT FOR: cc: Fransisco Field MD, Stany A. MD Epiphany, Epiphany MD ~ THIS REPORT FOR: //name// 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
--- NOTE | ~2019-06-26 | HC ---
[facility] [place] [address] CONSULTATION Name: ERIC HYDE Room #: 201-P ADM IN M.R.#: [id number] Admission: 06/26/19 Attend Phys: Fransisco Field MD Discharge: Date of : 57 Report #: [id number] THIS REPORT FOR: cc: Fransisco Field MD,Fransisco Sauer-Kendall,Fahad Zarate MD ~ THIS REPORT FOR: //name// CC: Fransisco Field DATE OF SERVICE: 06/27/2019 REASON FOR CONSULTATION: Chronic kidney disease, acute kidney injury, hypernatremia. REASON FOR PRESENTATION: Found down. HISTORY OF PRESENT ILLNESS: This is obtained from the medical chart. The patient is not able to provide me with the history. She was brought by the EMS after being found down. Further details are not clear. The patient was confused and disoriented. I am very well aware of her previous medical history. She has an advanced cardiomyopathy with an ejection fraction of around 25%. She has significant dilatation of her right ventricle and left atrium. She has chronic kidney disease. She has pulmonary hypertension. She has very poor social support. She has been in our hospital on numerous occasions for many reasons including lower extremity wound, debility. She has been in the rehabilitation floor. She failed to show up in my clinic on numerous occasions. She has very difficult to control volume status. On presentation yesterday, she was found to have a sodium of 154 with a BUN of 94 and a creatinine of 2.3. She was on the extremely hypotensive side. She had a troponin of 10.9. I am being consulted to manage her acute kidney injury. PAST MEDICAL HISTORY: Extensive and includes the following: Cardiomyopathy with very poor ejection fraction. Remote history of hypertension. Chronic kidney disease. REVIEW OF SYSTEMS: Unobtainable given the patient's current mental status. ALLERGIES: None. MEDICATIONS: 1. Hydralazine. 2. Isosorbide. 3. Carvedilol. 4. Lisinopril. 5. Torsemide. [facility] [address] [place] [address] CONSULTATION Name: ERIC HYDE Enrico Room #: 201-P [facility] IN M.R.#: [id number] Admission: 06/26/19 Attend Phys: Fransisco Field MD Discharge: Date of : 57 Report #: [id number] FAMILY HISTORY: Unobtainable given the patient's current mental status. PHYSICAL EXAMINATION: GENERAL: She is very frail. VITAL SIGNS: Blood pressure is marginal at 90/60. HEAD AND NECK: Dry mucous membrane. CHEST: Bilateral crackles. CARDIOVASCULAR: No rub. ABDOMEN: Soft, nontender. LOWER EXTREMITIES: Dressing applied bilaterally. LABORATORY VALUES: Reviewed. Sodium 154, chloride 125, carbon dioxide 14, BUN is 94, creatinine is 2.3. Hemoglobin is 8.6, urine with some leukocyte esterase and positive nitrite. Troponin is 10.95. ASSESSMENT, IMPRESSION AND PLAN: 1. Chronic kidney disease. 2. Non-ST elevation myocardial infarction. 3. Cardiomyopathy. 4. Lower extremity wounds. This is a very unfortunate situation. The patient has had recurrent issues with the above-mentioned issues including recurrent admissions for fluid overload, recurrent intubation, recurrent cardiac arrest, severe cardiomyopathy. She has chronic kidney disease and failed to show up in our clinic on numerous occasions. She has hypernatremia and metabolic acidosis. She is now having significantly elevated troponins with hypotension. I think conservative measures are good option in this patient and I do believe that palliative and comfort care should be pursued given the severity of her comorbid conditions. By: [id number] Fahad Carlisle MD /nt
--- NOTE | ~2019-06-26 | EKG ---
[facility] [place] [address] ELECTROCARDIOGRAM REPORT Name: ERIC HYDE Room #: [facility]#: [id number] Admission: 06/26/19 Attend Phys: Discharge: Date of : 57 Report #: [id number] THIS REPORT FOR: cc: Fransisco Field MD, Stany A. MD Epiphany,Tia TEMPLETON ~ THIS REPORT FOR: //name// [facility] ED Test Date: 2019-06-26 Test Time: 16:02:49 Pat Name: ERIC HYDE Department: Room: Gender: F Director Of Land Acquisition: : 1955 Requested By: Greg Burgos Order Number: [id number] MD: Measurements Intervals [place] Rate: 111 P: 46 [place]: 140 QRS: 59 QRSD: 103 T: -9 QT: 387 QTc: 526 Interpretive Statements Sinus tachycardia Probable left atrial enlargement Borderline T abnormalities, diffuse leads Prolonged QT interval Compared to ECG 10/05/2018 20:44:01 T-wave abnormality now present Prolonged QT interval now present Left ventricular hypertrophy no longer present [email or web address] By: 1602 1602 Epiphany Epiphany, /EPI
[2019-06-26 14:15] VITALS: BP 139/97
[2019-06-26] MEDS ORDERED: VITAMIN D31250 MC1 PO (14:16)
[2019-06-26] MEDS ORDERED: UNICOMPLEX M TA1 TA1 PO (14:17)
[2019-06-26] MEDS ORDERED: TRAMADOL 50 MG50 MG PO (14:17)
[2019-06-26 15:48] LABS: CALCIUM 9.1 mg/dL (8.5-10.1); CREATININE 2.3 mg/dL (0.6-1.0); POTASSIUM 5.1 mmol/L (3.5-5.1)
[2019-06-26 15:51] LABS: BASOPHILS 0.7 % (0.0-2.0); EOSINOPHILS 0.5 % (0.0-3.0); HEMATOCRIT 36.3 % (37.0-47.0); HEMOGLOBIN 10.3 gm/dL (12.0-15.0); LYMPHOCYTES 15.7 % (24.0-44.0); MCHC 28.3 g/dL (28.0-37.0); MCV 91.8 fL (80.0-100.0); MONOCYTES 8.6 % (1.0-8.0); PLATELET COUNT 258 thou/uL (150-400); POLYS 74.5 % (36.0-66.0); RBC 3.96 mil/uL (4.20-5.00); RDW 20.5 % (10.5-14.5); WBC 5.9 thou/uL (4.0-11.0)
[2019-06-26 15:56] LABS: MAGNESIUM 3.4 mg/dL (1.8-2.4)
[2019-06-26 15:58] LABS: TROPONIN-I 10.23 ng/mL (<0.06)
[2019-06-26 15:58] LABS: URINE BLOOD 2+ (Negative); URINE CLARITY CLEAR; URINE COLOR YELLOW; URINE GLUCOSE-RANDOM* NEGATIVE (Negative); URINE KETONES TRACE (Negative); URINE PROTEIN (DIPSTICK) 1+ (Negative); URINE SPECIFIC GRAVITY 1.015 (1.005-1.035)
[2019-06-26 16:00] LABS: ICTOTEST (BILI CONFIRMATORY) Negative (Negative); URINE BILIRUBIN NEGATIVE (Negative); URINE LEUKOCYTES-REFLEX 3+ (Negative); URINE NITRITE-REFLEX POSITIVE (Negative)
[2019-06-26 16:06] LABS: AMP/METHAMP Negative (Negative); BARBITURATES Negative (Negative); BENZODIAZEPINES Negative (Negative); COCAINE Negative (Negative); METHADONE Negative (Negative); OPIATES Negative (Negative); PCP Negative (Negative)
[2019-06-26 16:18] LABS: CASTS None Seen /LPF (None Seen); SQUAMOUS None Seen /LPF (0-3)
[2019-06-26 16:19] LABS: BACTERIA-REFLEX 1-9 Few /HPF (None Seen); CRYSTALS None Seen /LPF (None Seen); URINE RBC 0-2 Rare /HPF (0-2); URINE WBC-REFLEX 6-15 Few /HPF (0-5)
[2019-06-26 16:34] LABS: ANISOCYTOSIS 2+; PLATELET ESTIMATE NORMAL
[2019-06-26 16:45] VITALS: BP 131/93
[2019-06-26 16:58] VITALS: BP 129/94
[2019-06-26 17:20] VITALS: BP 122/82
--- NOTE | 2019-06-26 19:04 | NUR ---
PT CARE ASSUMED APPROX 1720. ASSESSMENT CHARTED BUT PT'S MENTAL STATUS IS IMPROVING WITH FRIEND AT BEDSIDE. DSGS TO BLE DONE AFTER PICS AND MEASUREMENTS. PT DENIES PAIN AFTER COMPLETION. PT DENIES QUESTIONS OR CONCERNS REGARDING POC. NO DISTRESS NOTED.
[2019-06-26 20:20] VITALS: BP 104/64
[2019-06-26 23:52] VITALS: BP 70/50
[2019-06-27] VITALS (8 sets, daily range): BP systolic 64–158; BP diastolic 44–62
[2019-06-27 06:10] LABS: HEMATOCRIT 30.1 % (37.0-47.0); HEMOGLOBIN 8.6 gm/dL (12.0-15.0); MCHC 28.6 g/dL (28.0-37.0); MCV 90.9 fL (80.0-100.0); RBC 3.31 mil/uL (4.20-5.00); RDW 20.4 % (10.5-14.5); WBC 7.7 thou/uL (4.0-11.0)
[2019-06-27 06:29] LABS: ALBUMIN 1.9 g/dL (3.4-5.0); CALCIUM 7.8 mg/dL (8.5-10.1); CREATININE 2.3 mg/dL (0.6-1.0); POTASSIUM 4.5 mmol/L (3.5-5.1)
[2019-06-27 06:36] LABS: TROPONIN-I 10.95 ng/mL (<0.06)
--- NOTE | 2019-06-27 07:33 | NUR ---
[facility] 1900. PT STABLE. BP RUSN VERY LOW WITH SYSTOLIC IN 60s-80s. BOLUSED PT PER DR WILDER BOLANOS'S ORDERS. SBP UP TO 80s. CONTINUED RUNNING MAINTAINANCE FLUID. LAST BP 94/57 WITH MAP OF 66. PATIENT IS INCONTINENT OF STOOL AND URINE WITH 4 BMs NOTED THROUGH THE NIGHT. BM OSE AND MUCUSY AND SAMPLE SENT FOR CDIFF CHECK. ASSESSMENT AAS CHARTED. PROGRESSING POORLY WITH POC. PLAN IS MONITOR BP/DIETARY INTAKE/MANAGE KIDNEY AND HEART FUNCTIONS. WILL CONTINUE TO MONITOR AND FOLLOW WITH POC
--- NOTE | 2019-06-27 09:30 | 2DMMODE ---
[facility] [address] [place] [address] 2 D/M-MODE ECHOCARDIOGRAM Name: ERIC HYDE Room #: 201-P ADM IN M.R.#: [id number] Admission: 06/26/19 Attend Phys: Fransisco Field MD Discharge: Date of : 57 Report #: [id number] THIS REPORT FOR: cc: Fransisco Field MD, Stany A. MD Lundgren, Craig H. MD [facility] ~ THIS REPORT FOR: //name// APPROVED REPORT Study performed: 06/27/2019 07:52:56 EXAM: Comprehensive 2D, Doppler, and color-flow Echocardiogram Patient Location: Bedside Room #: 201 Status: routine BSA: 1.31 HR: 68 bpm BP: 94/56 mmHg Rhythm: NSR Other Information Study Quality: Good Indications Congestive Heart Failure Cardiomyopathy Hypertension/HDD 2D Dimensions RVDd: 49.78 mm IVSd: 13.34 (7-11mm) LVOT Diam: 19.87 (18-24mm) LVDd: 52.30 mm PWd: 12.94 (7-11mm) Ascending Ao: 30.85 (22-36mm) LVDs: 46.88 (25-40mm) Aortic Root: 27.73 mm IVC: 27.00 mm Volumes Left Atrial Volume (Systole) Single Plane 4CH: 70.69 mL Single Plane 2CH: 59.06 mL LA ESV Index: 60.00 mL/m2 Aortic Valve AoV Peak Alireza.: 1.19 m/s [facility] [address] [place] [address] 2 D/M-MODE ECHOCARDIOGRAM Name: ERIC HYDE Room #: 201-P ADM IN M.R.#: [id number] Admission: 06/26/19 Attend Phys: Stephan Torres Discharge: Date of : 57 Report #: [id number] AO Peak Gr.: 5.67 mmHg LVOT Max P.21 mmHg LVOT Max V: 1.03 m/s KALLIE Vmax: 2.67 cm2 AI Vmax: 3.66 m/s AI [place]: 2.04 m/s2 AI PHT: 519.75 ms Mitral Valve E/A Ratio: 0.6 MV Decel. Time: 173.14 ms MV E Max Alireza.: 0.52 m/s MV A Alireza.: 0.87 m/s MV PHT: 50.21 ms IVRT: 166.09 ms Pulmonary Valve PV Peak Alireza.: 0.78 m/s PV Peak Gr.: 2.49 mmHg Pulmonary Vein P Vein S: 0.24 m/s P Vein A: 0.15 m/s P Vein D: 0.21 m/s P Vein A Dur.: 92.3 msec P Vein S/D Ratio: 1.14 Tricuspid Valve TR Peak Alireza.: 3.21 m/s RAP Estimate: 15.00 mmHg TR Peak Gr.: 41.29 mmHg PA Pressure: 56.00 mmHg Left Ventricle Left ventricle is at the upper limits of normal. There is global hypokinesis of the left ventricle. Mild concentric left ventricular hypertrophy. Left ventricular systolic function is severely decreased. LVEF is 25%. Mild diastolic dysfunction is present (impaired relaxation pattern). Right Ventricle Right ventricle is severely dilated. Right ventricle is severely hypokinetic. Atria Left atrium is severely dilated. Right atrium is severely dilated. Aortic Valve Aortic valve is mildly calcified. Mild aortic regurgitation. There is no aortic valvular stenosis. [facility] [address] [place] [address] 2 D/M-MODE ECHOCARDIOGRAM Name: ERIC HYDE Room #: 201-P ADM IN ..#: [id number] Admission: 06/26/19 Attend Phys: Stephan Torres Discharge: Date of : 57 Report #: [id number] Mitral Valve The mitral valve is mildly thickened. Moderate mitral regurgitation. No evidence of mitral valve stenosis. Tricuspid Valve The tricuspid valve is normal in structure. Severe tricuspid regurgitation. PAP is estimated at 55 mmHg. Pulmonic Valve The pulmonary valve is normal in structure. Mild to moderate pulmonic regurgitation. Great Vessels The aortic root is normal in size. IVC is dilated and collapses <50% with inspiration. Pericardium Small circumferential pericardial effusion. <Conclusion> Left ventricular systolic function is severely decreased. LVEF is 25%. Four chamber enlargement Mild diastolic dysfunction Aortic valve is mildly calcified. Mild aortic regurgitation, no stenosis. The mitral valve is mildly thickened. Moderate mitral regurgitation. Severe tricuspid regurgitation. Pulmonary artery pressure estimated at 55 mmHg. Small circumferential pericardial effusion. <ELECTRONICALLY SIGNED> By: Peter Solis MD, [facility] 06/27/19928 8 8 Peter Solis MD, FACC /INF
--- NOTE | 2019-06-27 18:51 | NUR ---
ASSUMED CARE 0700, ALERT X3, FORGETFULL/CONFUSE, LOW TEMP AND BP, NOTIFIED DR BOLANOS WITH ORDERS FOR [address] PT IN [place]. BP IN PROVING. ONE TIME LOOSE STOOL. NO SAMPLE SENT. 2X INCONTINENET. POOR INTAKE. REQUIRES STAFF TO ASSIST WITH MEALS/BEVERAGED. CALL LIGHT IN REACH. STAFF TO ANTICIPATE NEEDS.
[2019-06-28 03:26] VITALS: BP 80/56
--- NOTE | 2019-06-28 04:43 | NUR ---
ASSUME CARE 190. PT IS A/O TO PERSON AND ANSWERS QUESTIONS APPROPRITELY. FORGETFULNESS AND SOMETIMES CONFUSION IS NOTED. COMPLAINS OF BILATERAL LOWER EXTREMITY PAIN. TYLENOL FOR RELIEF. SR ON MONITOR. NO DISTRESS NOTED THROUGH THE NIGHT. BP RUNS SOFT IN 70s. PT ON D5W FOR MAINTENANCE FLUID. POOR APPETITE NOTED WITH ENCOURAGEMENT TO INCREASE ORAL INTAKE. ASSESSMENT CHARTED. POOR PROGRESS TO POC. PLAN IS TO CONTINUE TO MANAGE BP WITH FLUIDS AND MONITOR KIDNEY AND CARDIAC FUNCTION. WILL CONITNUE TO MONITOR AND FOLLOW WITH POC
[2019-06-28 05:07] LABS: CALCIUM 7.4 mg/dL (8.5-10.1); CREATININE 2.5 mg/dL (0.6-1.0); POTASSIUM 4.4 mmol/L (3.5-5.1)
[2019-06-28 07:20] VITALS: BP 78/58
[2019-06-28 10:50] VITALS: BP 83/57
[2019-06-28 16:50] VITALS: BP 75/50
--- NOTE | 2019-06-28 19:19 | NUR ---
AAOX1 FED DINNER ATE APPROX 30% OF MEAL. IV INFUSING. DENIES PAIN. MOVES SELF IN BED. ENCOURGED TO USE CALL LIGHT FOR NEEDS. APPEARS TO UNDERSTAND. HAS NOT TRIED TO GET UP ON OWN. BED ALARM ON. ARTURO WIGGINS
[2019-06-28 20:16] VITALS: BP 77/33
[2019-06-28 23:48] VITALS: BP 85/51
[2019-06-29] VITALS (16 sets, daily range): BP systolic 52–137; BP diastolic 29–81
[2019-06-29 02:14] LABS: BE(vivo) -21.5 mmol/L (-2 to +3); PCO2 47.4 mmHg (35.0-45.0); PO2 102.3 mmHg (80.0-100.0)
[2019-06-29 02:15] LABS: pH 6.941 (7.360-7.450)
--- NOTE | 2019-06-29 02:16 | NUR ---
0143 PT HEART RATE DROP TO 18 PT FOUND UNRESPONDSIVE AND NON BREATHING AND WITHOUT A PULSE , CPR ,CODE BLUE CALLED , [place] TEAM AT BEDSIDE. DR JOYA AND DR COOK CONDULTED AND CALLED. PT PULSE RETURNED , PT INTUBATED CXR DONE, PT TRANSPORTED TO ICU ROOM 248.
[2019-06-29 02:32] LABS: HEMOGLOBIN 9.5 gm/dL (12.0-15.0); RBC 3.74 mil/uL (4.20-5.00)
[2019-06-29 02:34] LABS: HEMATOCRIT 37.1 % (37.0-47.0); MCH 25.5 pg (26.0-34.0); MCHC 25.7 g/dL (28.0-37.0); RDW 21.9 % (10.5-14.5); WBC 11.2 thou/uL (4.0-11.0)
[2019-06-29 02:50] LABS: CALCIUM 7.4 mg/dL (8.5-10.1); CREATININE 2.6 mg/dL (0.6-1.0); MAGNESIUM 2.5 mg/dL (1.8-2.4); POTASSIUM 5.3 mmol/L (3.5-5.1)
[2019-06-29 02:52] LABS: TROPONIN-I 4.29 ng/mL (<0.06)
--- NOTE | 2019-06-29 02:57 | NUR ---
CALLED PLACED TO [facility] TO INFORM THEM OF PT CHANGE IN CONDITION AND THAT PT CODED AND WAS IN ICU ROM 248 . NO ANSWER AT NUMBER [phone] , MESSAGE LEFT TO CALL ICU.
--- NOTE | 2019-06-29 04:29 | NUR ---
PT ARRIVED FROM CCU POST CODE AT 0230 TO THE ICU. PT WAS UNRESPONSIVE AND UNARROUSABLE UPON ARRIVAL. NO SEDATION IN PLACE. PT ON THE VENT, UNABLE TO GET AN ACCURATE O2 SAT ON PATIENT. BP IN THE 69/[address] COOK CALLED AT 0235, UPDATED ABOUT PATIENT'S BP, AND STATUS POST CARDIAC ARREST FROM THE CCU. CRITICAL ABGS AND LAB COMMUNICATED TO DR. COOK. ORDERS WERE RECIEVED AND IMPLEMENTED. 0241 AM: PATIENT WENT ASYSTOLE. CODE BLUE WAS CALLED. SEE CODE SHEET FOR EVENTS. DR. CARUSO WAS CALLED AT 0255, UPDATED ABOUT PT CARDIAC ARRESTED FOR THE SECOND TIME TONIGHT. NO ORDERS RECIEVED. DR. COOK WAS ALSO INFORMED ABOUT THIS EVENT AT 0250. 0321 AM: PT WENT INTO [facility]. SEE CODE BLUE SHEET FOR EVENT. DR. COOK CALLED AT [address] WILDER BOLANOS CALLED AT 033. UPDATED DR. BOLANOS ABOUT PT GOING INTO CARDIAC ARREST THE THIRD TIME FOR THE NIGHT. WAS INFORMED BY DR. BOLANOS THERE WAS NOTHING MORE WE CAN. TALKED TO ADILENE POSEY (SISTER) AT 033 AM, INFORMED SISTER ABOUT PATIENT GOING INTO CARDIAC ARREST 3 TIMES DURING THE LAST 2HRS. INFORMED HER THAT THE WERE UPDATED ABOUT THE PATIENT, AND PER DR. WILDER BOLANOS THERE WAS NOTHING MORE THAT CAN BE DONE FOR PATIENT. ADILENE POSEY CALLED AT 0350 TO CHANGE PATIENT'S CODE STATUS TO NO CODE. DR. WILDER RICHARDSON INFORMED ABOUT THIS AT 035, PT'S STATUS WAS CHANGED TO NO CODE IN [facility]. PT NOT PROGRESSING TOWARDS GOALS. WILL CONTINUE TO MONITOR.
[2019-06-29 04:43] LABS: BE(vivo) -13.6 mmol/L (-2 to +3); HCO3 13.8 mmol/L (22.0-26.0); PCO2 37.8 mmHg (35.0-45.0); PO2 56.6 mmHg (80.0-100.0); pH 7.181 (7.360-7.450); sO2 82.3 % (92.0-98.0)
--- NOTE | 2019-06-29 06:57 | NUR ---
PT HR IN THE ASYSTOLY AT 0508, NO PULSE. CALLED DR. HERRERA TO INFORM ABOUT THE PATIENT BEING PULSELESS. PT PRONOUNCED AT [address] HERRERA. ADILENE POSEY CALLED AT 0524 TO INFORM ABOUT THE PASSING OF PATIENT.
--- NOTE | 2019-06-29 17:14 | NUR ---
PATIENT'S SIBLINGS ARRIVED TODAY AROUND 1430 FROM OUT OF TOWN TO VISIST WITH WITH PT IN THE [facility]: ADILENE DUMONT
--- NOTE | 2019-06-30 08:31 | HC ---
[facility] [place] [address] CONSULTATION Name: ERIC HYDE Room #: 248-P [facility] IN M.R.#: [id number] Admission: 06/26/19 Attend Phys: Fransisco Field MD Discharge: 06/29/19 Date of : 57 Report #: [id number] THIS REPORT FOR: cc: Fransisco Field MD, Stany A. MD [place], Allen B. MD ~ THIS REPORT FOR: //name// CC: Fransisco Field DATE OF SERVICE: 06/28/2019 WOUND CARE CONSULTATION NOTE LOCATION: [facility]. REASON FOR CONSULTATION: Painful leg ulcers. HISTORY OF PRESENT ILLNESS: The patient is a 64-year-old woman, poor historian, admitted through the Emergency Room after being found down on her front porch with confusion and disorientation. The patient has a history of advanced cardiomyopathy with ejection fraction of 25% and history of pulmonary hypertension. The patient has been known to have lower extremity wounds and been hospitalized here before. On admission, the patient was hypernatremic with sodium of 154. The patient has severe protein-calorie malnutrition with albumin of 1.9. Wound care is consulted for painful leg ulcers. I do not have any previous history of these. ALLERGIES: None. MEDICATIONS: Include hydralazine, isosorbide, carvedilol, lisinopril and torsemide. The patient is nondiabetic. FAMILY HISTORY: Unobtainable. PHYSICAL EXAMINATION: GENERAL: Shows a thin, frail, awake, elderly woman. HEENT: Mucous membranes are moist. NECK: Supple. ABDOMEN: Soft. EXTREMITIES: Examination of the lower extremities showed no palpable dorsalis pedis pulse of the right or left foot. There is a well-demarcated painful ulcer of the right lateral midcalf, measuring approximately 8 cm x 2.5 cm x 3 mm deep. This has healthy, pink granulation tissue, well demarcated edges and is tender. There is no cellulitis. This is suspicious for mixed arterial and venous ulcer. Examination of the left leg shows no other chronic ulcer, just much [facility] [address] [address] CONSULTATION Name: MARY ELLENERIC Enrico Room #: 248-P [facility] IN M.R.#: [id number] Admission: 06/26/19 Attend Phys: Fransisco Field MD Discharge: 06/29/19 Date of : 57 Report #: [id number] larger of her anterior lateral leg. This measures approximately 15 cm long x 5 cm wide. This mostly has smooth chronic pink granulation tissue with some adherent necrotic tissue at the surface, which is minimal. This ulcer is also tender. There is no surrounding cellulitis. IMPRESSION: 1. Disorientation. 2. Hypernatremia. 3. Cardiomyopathy. 4. Pulmonary hypertension. 5. Severe protein-calorie malnutrition, albumin 1.9. 6. Large painful chronic appearing leg ulcers. Suspect chronic venous stasis with arterial component. PLAN: For topical relief, we will order morphine, Silvadene cream to be applied twice daily, covered with Xeroform, ABD and Kerlix. No compression can be done due to uncertain arterial status. We will order bilateral lower extremity arterial Dopplers. Wound care team will follow. <ELECTRONICALLY SIGNED> By: Kennedy Stout MD 06/30/19 [id number] Kennedy Stout MD /nt
== END 2019-06-29 05:17 ==
LOC: ER 14:12 → EROBS 16:42 → 2N 16:47 → ICU 06-29 02:24
PROVIDERS: Emergency Medicine; Internal Medicine; Internal Medicine Geriatric Medicine; ADMIT Internal Medicine
PROC: 0BH17EZ Insertion of Endotracheal Airway into Trachea, Via Natural or Artificial Opening (ICD-10-PCS; principal; 2019-06-29)
PROC: 5A12012 Performance of Cardiac Output, Single, Manual (ICD-10-PCS; principal; 2019-06-29)
PROC: 5A1935Z Respiratory Ventilation, Less than 24 Consecutive Hours (ICD-10-PCS; principal; 2019-06-29)
DX: I21.4 Non-ST elevation (NSTEMI) myocardial infarction (principal); E43 Unspecified severe protein-calorie malnutrition; I13.0 Hypertensive heart and chronic kidney disease with heart failure and stage 1 through stage 4 chronic kidney disease, or unspecified chronic kidney disease; E87.0 Hyperosmolality and hypernatremia; N17.9 Acute kidney failure, unspecified; N39.0 Urinary tract infection, site not specified; Z68.1 Body mass index [BMI] 19.9 or less, adult; L97.909 Non-pressure chronic ulcer of unspecified part of unspecified lower leg with unspecified severity; N18.4 Chronic kidney disease, stage 4 (severe); I42.9 Cardiomyopathy, unspecified; R64 Cachexia; I50.22 Chronic systolic (congestive) heart failure; E87.2 Acidosis; R41.0 Disorientation, unspecified; I27.20 Pulmonary hypertension, unspecified; Z60.2 Problems related to living alone; K74.60 Unspecified cirrhosis of liver; I87.8 Other specified disorders of veins; D63.8 Anemia in other chronic diseases classified elsewhere; E86.0 Dehydration; Z79.82 Long term (current) use of aspirin; Z79.899 Other long term (current) drug therapy
CPT/HCPCS: 10081